=== PATIENT | male | born 1970 | race Caucasian/White ===

== ENCOUNTER 2017-06-03 08:01 | Inpatient (IN) | payer SELFPAY ==
[~2017-06-03] VITALS: Ht 182.9 cm; Wt 69.4 kg
[2017-06-03] VITALS (32 sets, daily range): BP systolic 101–127; BP diastolic 61–89
[~2017-06-03 08:01] MED LIST: ETOMIDATE 2 MG/ML VIAL IV ONE; ROCURONIUM BROMIDE 50 MG/5 ML IV ONE; SUCCINYLCHOLINE CHLORIDE 20 MG/ML VIAL IV ONE
[2017-06-03] MEDS ORDERED: NALOXONE PREFILLED SYRINGE 2 MG/2 ML SYRINGE ONE ×2 (08:03→08:05)
[2017-06-03] MEDS ORDERED: PROPOFOL 100 ML ONE (08:07)
--- NOTE | 2017-06-03 08:10 | NUR ---
verbal order by NEENA DEGROOT for 2mg narcan to [facility] 20,
--- NOTE | 2017-06-03 08:10 | NUR ---
Line established to kaylin Traylor, blood drawn from line and sent to lab
--- NOTE | 2017-06-03 08:11 | NUR ---
anil order by for 2nd dose of narcan 2mg ivp to r ej g 20
--- NOTE | 2017-06-03 08:11 | NUR ---
Dr. Rossi and respiratory therapist for rapid sequence intubation verbal order for etomidate 20mg to r ej g 20 verbal order for
--- NOTE | 2017-06-03 08:13 | NUR ---
Pt intubated by dr lang with 7.5 ET tube, 23cm lip line positive c02 color change noted with bilateral breath sounds
--- NOTE | 2017-06-03 08:14 | NUR ---
Pt appears aggitated and appears difficult to ventilate using bag verbal order from Dr. Rossi for Roceronium 40mg to r ej g 20
--- NOTE | 2017-06-03 08:15 | NUR ---
Héctor Wood emt at bedside for EKG, Sinus tachycardia noted without ectopy
--- NOTE | 2017-06-03 08:17 | NUR ---
finnegan catheter insertedd using sterile technique, no urine output noted from finnegan catheter. MD goode
--- NOTE | 2017-06-03 08:19 | NUR ---
respiratory therapis at bedside to place pt on ventilator with settings: ac:14 tv:550 fio2:100% peep:5
--- NOTE | 2017-06-03 08:30 | NUR ---
RT NOTE: ASSISTED WITH ORAL INTUBATION. HE USED 7.5 ETT SECURED AT 23CM MID LIP LINE. BILATERAL B/S NOTED. POSITIVE COLOR CHANGE ON CAPNOMETER. PATIENT WAS PLACED ON PB 840 VENT. ALARMS VERIFIED AND AUDIBLE. SUCTIONED AND LAVAGED SMALL AMOUNT OF THIN RAYO SECRETIONS. SPUTUM SAMPLE GIVEN TO NURSE(AROLDO). VENT PLUGGED INTO RED OUTLET. AMBU BAG AT [facility].
[2017-06-03 08:41] LABS: BASOPHILS % (AUTO) 0.1 % (0.0-2.0); EOSINOPHILS % (AUTO) 0.7 % (0.0-6.0); HEMATOCRIT 48 % (39-51); HEMOGLOBIN 15.5 g/dL (13.5-17.5); LYMPHOCYTES # (AUTO) 7.2 /CMM (0.8-4.8); LYMPHOCYTES % (AUTO) 18.3 % (20.0-44.0); MEAN CORPUSCULAR HEMOGLOBIN 28 PG (26.0-33.0); MEAN CORPUSCULAR HGB CONC 32 g/dl (31.0-36.0); MEAN CORPUSCULAR VOLUME 88 fL (80-96); MONOCYTES # (AUTO) 0.9 /CMM (0.1-1.30); MONOCYTES % (AUTO) 2.3 % (2.0-12.0); NEUTROPHILS # (AUTO) 30.8 /CMM (1.8-8.9); NEUTROPHILS % (AUTO) 78.6 % (43.0-81.0); PLATELET COUNT (AUTO) 372 /CMM (150-450); RDW COEFFICIENT OF VARIATION 14.5 (11.5-15.0)
[2017-06-03 08:49] LABS: WHITE BLOOD COUNT (AUTO) 39.2 K/uL (4.3-11.0)
[2017-06-03] MEDS ORDERED: IV NS 0.9% 1,000 ML BAG IV ONE (09:00)
[2017-06-03] MEDS ORDERED: ETOMIDATE 2 MG/ML VIAL IV ONE (09:00)
[2017-06-03] MEDS ORDERED: NALOXONE HCL 0.4 MG/ML AMPUL IV ONE ×2 (09:00)
[2017-06-03] MEDS ORDERED: VANCOMYCIN 1 GM in IV D5W 250 ML IV ONE (09:00)
[2017-06-03] MEDS ORDERED: PIPERACILLIN /TAZOBACTAM 3.375 G in IV D5W 50 ML IV ONE (09:00)
[2017-06-03] MEDS ORDERED: ROCURONIUM BROMIDE 50 MG/5 ML IV ONE (09:00)
--- NOTE | 2017-06-03 09:01 | NUR ---
PATIENT TAKEN TO CT VIA STRETCHER, WITH RT AND RN.
[2017-06-03 09:03] LABS: INR 1.19 (0.87-1.13)
[2017-06-03 09:10] LABS: ALANINE AMINOTRANSFERASE 55 U/L (12-78); ALBUMIN 3.6 g/dL (3.4-5.0); ALCOHOL, BLOOD < 3 mg/dL (0-0); ALKALINE PHOSPHATASE 201 U/L (46-116); ASPARTATE AMINOTRANSFERASE 74 U/L (15-37); BILIRUBIN,TOTAL 0.4 mg/dL (0.2-1.0); CALCIUM, SERUM 10.8 mg/dL (8.5-10.1); CHLORIDE 99 mmol/L (98-107); CREATININE 2.8 mg/dL (0.6-1.3); GLUCOSE 184 mg/dL (74-106); POTASSIUM 3.4 mmol/L (3.5-5.1); SALICYLATE 4.7 mg/dL (2.8-20.0); SODIUM SERUM 141 mmol/L (136-145); UREA NITROGEN, BLOOD 15 mg/dL (7-18)
[2017-06-03 09:11] LABS: ACETAMINOPHEN < 10 ug/ml (10-30); CARBON DIOXIDE 9 mmol/L (21-32)
--- NOTE | 2017-06-03 09:13 | NUR ---
PATIENT RETURNED FROM CT.
--- NOTE | 2017-06-03 09:33 | NUR ---
PANEL ON-CALL,TRENTON, KODAK
[2017-06-03 09:40] LABS: BAND % (MANUAL) 9 % (0.0-5.0); LYMPHOCYTES % (MANUAL) 21 % (16-48); MONOCYTES % (MANUAL) 12 % (0-11.0); NEUTROPHILS % (MANUAL) 58 (42-76)
--- NOTE | 2017-06-03 09:45 | NUR ---
SECOND IV STARTED ON LEFT EJ, 18G.
--- NOTE | 2017-06-03 09:49 | NUR ---
REPORT GIVEN TO BERNARDO LUA FOR NÉSTOR UPON ADMISSION.
--- NOTE | 2017-06-03 09:58 | NUR ---
CALLED [facility] FOR ADMISSION
[2017-06-03] MEDS ORDERED: FENTANYL PF 100MCG/2ML AMPUL ONE (10:32)
[2017-06-03] MEDS ORDERED: LORAZEPAM INJ 2 MG/ML VIAL ONE (10:32)
--- NOTE | 2017-06-03 10:45 | NUR ---
PATIENT GIVEN ATIVAN AND FENTANYL D/T CHEWING ON ET TUBE. ATTEMPTED TO PULL TUBE WELL. MEDICATION GIVEN, PATIENT SEDATED AT THIS TIME.
--- NOTE | 2017-06-03 10:50 | NUR ---
DONNELL MCBRIDE AT BEDSIDE PERFORMED LUMBAR PUNCTURE.
[2017-06-03 10:54] LABS: SERUM AMMONIA 31 umol/L (11-32)
[2017-06-03] MEDS ORDERED: LORAZEPAM INJ 2 MG/ML VIAL IV ONE (11:00)
[2017-06-03] MEDS ORDERED: FENTANYL PF 100MCG/2ML AMPUL IV PRN (11:00)
[2017-06-03 11:02] LABS: ALCOHOL, BLOOD < 3 mg/dL (0-0)
--- NOTE | 2017-06-03 11:05 | NUR ---
CENTRAL LINE INSERTED BY DONNELL MCBRIDE ON RIGHT IJ, TOLERATED WELL.
--- NOTE | 2017-06-03 11:25 | NUR ---
PATIENT TRANSPORTED TO ICU, 254 VIA ACLS PROTOCOL. RN, BERNARDO TO PROVIDE NÉSTOR.
[2017-06-03] MEDS ORDERED: ONDANSETRON HCL/PF 4 MG/2 ML VIAL IVP PRN (12:00)
[2017-06-03] MEDS ORDERED: PROPOFOL 100 ML IV PRN (12:00)
[2017-06-03] MEDS ORDERED: ENOXAPARIN SODIUM 40 MG/0.4 ML DISP.SYRIN SQ SCH (12:00)
[2017-06-03 12:02] LABS: ABG BASE EXCESS -7.4 mmol/L; ABG OXYGEN SATURATION 97.2 % (92.0-98.5); ABG PCO2 28.4 mmHg (35.0-45.0); ABG PH 7.375 (7.350-7.450); ABG PO2 100.3 mmHg (75.0-100.0); AaDO2 584.3 mmHg; COHb 0.5 % (0.5-1.5); MetHb 0.4 % (0.0-1.5); O2Hb 96.3 % (94.0-97.0); PEEP,BG 5 cm H2O; SITE, ABG Right Radial; VT, ABG 550 mL
[2017-06-03] MEDS ORDERED: FEE PK DOSING 1 MIN EA MC ONE (12:35)
[2017-06-03 12:38] LABS: APPEARANCE,URINE Cloudy (CLEAR); BILIRUBIN,URINE Negative (NEGATIVE); BLOOD, URINE Large Ery/uL (NEGATIVE); COLOR,URINE Yellow (YELLOW); KETONES,URINE Negative (NEGATIVE); LEUKOCYTE ESTERASE ,URINE Trace (NEGATIVE); NITRITE, URINE Negative (NEGATIVE); PROTEIN,URINE 100 mg/dl (NEGATIVE); UGLUCOSE Negative (NEGATIVE); UROBILINOGEN,URINE 0.2 EU/dL (0.2)
[2017-06-03] MEDS: MEROPENEM 1 G in IV NS 0.9% 100 ML IV SCH ×2 (12:46→21:31)
[2017-06-03 12:59] LABS: BACTERIA,URINE Few /HPF (None Seen); SQUAMOUS EPITHELIAL CELL,UR Rare /HPF (None Seen)
[2017-06-03] MEDS: IV NS 0.9% 1,000 ML IV PRN ×2 (13:03→20:03)
[2017-06-03 13:42] LABS: EOSINOPHILS % (AUTO) 0.2 % (0.0-6.0); HEMATOCRIT 41 % (39-51); HEMOGLOBIN 13.9 g/dL (13.5-17.5); LYMPHOCYTES # (AUTO) 0.8 /CMM (0.8-4.8); LYMPHOCYTES % (AUTO) 2.6 % (20.0-44.0); MEAN CORPUSCULAR HEMOGLOBIN 28 PG (26.0-33.0); MEAN CORPUSCULAR HGB CONC 34 g/dl (31.0-36.0); MEAN CORPUSCULAR VOLUME 82 fL (80-96); MONOCYTES # (AUTO) 0.5 /CMM (0.1-1.30); MONOCYTES % (AUTO) 1.6 % (2.0-12.0); NEUTROPHILS % (AUTO) 95.6 % (43.0-81.0); PLATELET COUNT (AUTO) 218 /CMM (150-450); RDW COEFFICIENT OF VARIATION 14.2 (11.5-15.0); RED BLOOD CELL COUNT(AUTO) 4.96 MIL/uL (4.5-6.0); WHITE BLOOD COUNT (AUTO) 29.3 K/uL (4.3-11.0)
[2017-06-03 14:05] LABS: ALBUMIN 2.5 g/dL (3.4-5.0); BILIRUBIN,TOTAL 0.9 mg/dL (0.2-1.0); CALCIUM, SERUM 7.7 mg/dL (8.5-10.1); CREATININE 2.8 mg/dL (0.6-1.3); MAGNESIUM 3.1 mg/dL (1.8-2.4); POTASSIUM 2.9 mmol/L (3.5-5.1); TOTAL PROTEIN, SERUM 6.3 g/dL (6.4-8.2)
[2017-06-03] MEDS: IV NS 0.9% 500 ML IV PRN ×8 (15:00→23:34)
[2017-06-03] MEDS: ALBUTEROL FS 2.5 MG/0.5 ML VIAL.NEB NEB SCH ×2 (15:30→19:41)
[2017-06-03] MEDS: IPRATROPIUM NEB FS 0.5 MG/2.5 ML AMPUL.NEB NEB SCH ×2 (15:30→19:41)
[2017-06-03 15:35] LABS: CSF GLUCOSE 103 mg/dL (40-70); CSF PROTEIN 60.9 mg/dL (15-45)
[2017-06-03] MEDS: PROPOFOL 100 ML IV PRN ×5 (15:44→23:30)
[2017-06-03] MEDS: ACETAMINOPHEN 650 MG/SUPP.RECT RC PRN (15:49)
[2017-06-03] MEDS ORDERED: NEUTRA PHOS 1 POWD.PACKET NG ONE (16:00)
[2017-06-03] MEDS ORDERED: POTASSIUM CHLORIDE 20 MEQ POWDER PACKET NG ONE (16:00)
--- NOTE | 2017-06-03 16:45 | NUR ---
FOREST FIRE OFFICER NOTE 1130: Admitted no ID patient from ER. Intubated 7.5/23cm lipline, with vent settings AC 14 550 100% +5. No respiratory distress noted at this time. Placed in bed in comfortable position, skin assessment done, taken pictures and attached to chart, noted with bilateral knuckles wounds, knees abrasions, right inner thigh wound with abscess. RIJ TLC and LEJ [address] 110's on the monitor. Velasquez cath intact, noted with low UOP. 1200: Patient does not follow commands but noted with agitation and risk for injuries such as removing ETT and other lines, able to obtain order for PHOTOLITHOGRAPHER restraints and Diprivan drip. Dr. Meyer has order to place on CVP monitor, with reading of 12 now, and with order to give 500 mL NS bolus to keep CVP 12 or greater. 1400: S/E by dr. Chawla, no new order at this time. Trop 4.197, made Dr. Meyer aware, with order to start Heparin drip ACS once CSF resulted. 1430: Made Dr. Chawla aware for tachypneic 40's and biting the ETT, with order to may increase Diprivan to 100mcg. 1545: Temp 101.2, awaiting cultures result. Given Tylenol supp and rendered cooling measures. 1615: Updated Dr. Meyer re: the patient, CSF prelim, WBC 3. Still low urine output. Given 2 of 500mL NS bolus but CVP still 8-10, will given another 500mL bolus now. K 2.9, 40 mEq /OGT and K phos 2 packets given. Still with low UOP. said may start on Heparin, called pharmacy, awaiting to verify. 1630: Spoke with [facility], and she clarified with Dr. Meyer re: the Heparin drip order.
[2017-06-03 16:59] LABS: CREATINE KINASE MB 16.5 ng/mL (0-3.6)
[2017-06-03] MEDS ORDERED: HEPARIN INFUSION/D5W 500 ML IV PRN (17:00)
--- NOTE | 2017-06-03 19:46 | NUR ---
PATIENT RECEIVED ON [facility] VENT WITH SETTINGS SET BY TOLERATED WELL. MECHANICAL VENTILATOR PLUGGED INTO RED OUTLET. VENT ALARMS CHECKED AND ARE AUDIBLE. CUFF PRESSURE CHECKED SECONDARY ART TEACHER. SUCTIONED FOR MODERATE AMOUNT OF SECRETIONS. B/S AUDIBLE BILATERALLY. AMBU BAG AT HOB. Addendum: 06/03/17 at 1946 by JAMIA DENTON RT Amended: Links added.
[2017-06-03] MEDS ORDERED: LEVOFLOXACIN 500 MG /D5W 100ML 500 MG in PREMIX 1 EA IV SCH (20:00)
[2017-06-04] VITALS (41 sets, daily range): BP systolic 95–123; BP diastolic 43–82
[2017-06-04] MEDS: IPRATROPIUM NEB FS 0.5 MG/2.5 ML AMPUL.NEB NEB SCH ×7 (00:03→23:55)
[2017-06-04] MEDS: ALBUTEROL FS 2.5 MG/0.5 ML VIAL.NEB NEB SCH ×7 (00:03→23:55)
--- NOTE | 2017-06-04 01:00 | NUR ---
INSTRUCTIONAL MATERIALS DIRECTOR CVP 12 GOAL REACHED; 3L NS BOLUS GIVEN.
[2017-06-04] MEDS: PROPOFOL 100 ML IV PRN ×9 (01:04→19:11)
[2017-06-04] MEDS: IV NS 0.9% 500 ML IV PRN ×3 (01:05→15:45)
[2017-06-04 01:29] LABS: HEMOGLOBIN 13.5 g/dL (13.5-17.5)
--- NOTE | 2017-06-04 01:30 | NUR ---
REHABILITATION COUNSELLOR NOTIFIED PT BLEEDING FROM MOUTH AND VIA BATES CATHETER; PER MD CONTINUE HEPARIN D/T HIGH TROPONIN. H&H DRAWN AND NO SIGNIFICANT CHANGE NOTED. CONTINUE TO MONITOR.
[2017-06-04] MEDS: IV NS 0.9% 1,000 ML IV PRN ×3 (03:36→23:42)
[2017-06-04 04:47] LABS: HEMATOCRIT 38 % (39-51); HEMOGLOBIN 13.5 g/dL (13.5-17.5); LYMPHOCYTES # (AUTO) 0.7 /CMM (0.8-4.8); LYMPHOCYTES % (AUTO) 2.8 % (20.0-44.0); MEAN CORPUSCULAR HEMOGLOBIN 30 PG (26.0-33.0); MEAN CORPUSCULAR HGB CONC 35 g/dl (31.0-36.0); MEAN CORPUSCULAR VOLUME 84 fL (80-96); MONOCYTES # (AUTO) 0.4 /CMM (0.1-1.30); MONOCYTES % (AUTO) 1.5 % (2.0-12.0); NEUTROPHILS # (AUTO) 24.8 /CMM (1.8-8.9); NEUTROPHILS % (AUTO) 95.7 % (43.0-81.0); PLATELET COUNT (AUTO) 89 /CMM (150-450); RDW COEFFICIENT OF VARIATION 14.6 (11.5-15.0); RED BLOOD CELL COUNT(AUTO) 4.55 MIL/uL (4.5-6.0)
[2017-06-04 05:46] LABS: NEUTROPHILS % (MANUAL) 75 (42-76)
[2017-06-04 05:47] LABS: BAND % (MANUAL) 20 % (0.0-5.0); LYMPHOCYTES % (MANUAL) 1 % (16-48); METAMYELOCYTES % 3 % (0-0); MONOCYTES % (MANUAL) 1 % (0-11.0)
[2017-06-04 05:49] LABS: ALBUMIN 1.9 g/dL (3.4-5.0); BILIRUBIN,TOTAL 2.3 mg/dL (0.2-1.0); CALCIUM, SERUM 6.5 mg/dL (8.5-10.1); CREATININE 4.4 mg/dL (0.6-1.3); MAGNESIUM 3.5 mg/dL (1.8-2.4); PHOSPHORUS 7.6 mg/dL (2.5-4.9); POTASSIUM 4.6 mmol/L (3.5-5.1); TOTAL PROTEIN, SERUM 5.2 g/dL (6.4-8.2)
--- NOTE | 2017-06-04 08:35 | NUR ---
WOUND CARE CONSULT: PT PRESENTS INTUBATED WITH MULTIPLE DRY ABRASIONS TO KNUCKLES AND KNEES, PRESENT ON ADMISSION AND RT INNER THIGH WOUND, S/P I&D. RECOMMEND SURGICAL FOLLOWUP. PT ON MARGY ISOFLEX LOW AIRLOSS BED. ALL SKIN PROTECTION MEASURES IN PLACE AND DISCUSSED WITH NURSING STAFF. WILL SEE PRN. DEGROOT IN AGREEMENT WITH PLAN OF CARE. CURRENT NIKITA SCORE IS 10. Addendum: 06/04/17 at 0840 by VIJAY KIMBROUGH WNDNU Amended: Links added.
[2017-06-04] MEDS: PANTOPRAZOLE 40 MG VIAL IV SCH (08:48)
[2017-06-04] MEDS: MEROPENEM 1 G in IV NS 0.9% 100 ML IV SCH ×2 (08:48→21:06)
[2017-06-04] MEDS: ACETAMINOPHEN 650 MG/SUPP.RECT RC PRN (08:49)
--- NOTE | 2017-06-04 10:05 | NUR ---
Social service consult requested by Dr. Meyer to get identity on pt. since pt. came to [facility] as a "[facility]pa [facility]ane". CAROLE met with pt. bedside along with RN Keven. Per. Camilo pt. was brought to [facility] in the ED and was intubated since he went into respiratory distress. Pt. is currently intubated and unable to provide any information. CAROLE contacted Missing persons and spoke to Detective Davila. CAROLE described pt's features and gave him demographic information. Detective Davila informed CAROLE he will cross-reference and try to see if he can find any information and will contact CAROLE.
[2017-06-04] MEDS: VANCOMYCIN 1.25 GM in IV D5W 500 ML IV SCH (11:04)
[2017-06-04] MEDS: LORAZEPAM INJ 2 MG/ML VIAL IV PRN ×2 (13:26→18:13)
--- NOTE | 2017-06-04 15:38 | NUR ---
CAROLE contacted Detective Davila again to follow up regarding any new information on the pt. or if pt. has been notified as missing. Detective Davila informed SW he has not had a chance to investigate or refer the case to other detectives since he is the only one available at the office at this time. CAROLE gave him trimming caser Belkis contact number if he happens to call on the weekend. [facility] , there was no answer and CAROLE was unable to leave a voicemail message.
--- NOTE | 2017-06-04 15:50 | NUR ---
IT TRAINER NOTE 0720: Received patient in am, with ETT to vent, tolerated settings. Noted with RR 30-34. With OGT to LIS, noted with greenish gastric residuals noted. With RIJ TLC intact. On Diprivan @ 100mcg, Heparin @ 1000 u/h, NS @ 150. ST 100's on the monitor. Per previous shift, noted with hematuria already and oral bleeding and may continue Heparin per MD. Will continue to monitor. Still noted with low UOP. 0930: Rendered sedation vacation, patient does not wake up and does not follow commands, but noted with increased work of breathing and tachypneic high 30's. Dr. Chawla with order of Ativan 2mg q2 PRN. 1000: Still with hematuria after flushing, made Dr. Meyer aware. Held Heparin, made aware. MD ordered to do CT lumbar to R/O hematoma. 1210: Done with CT lumbar, back to room, no significant changes noted. VSS. 1230: CT lumbar resulted, no hematoma and trop trended down to 4, made aware, with order to continue holding Heparin drip. 1530: S/E by Jadyn NEW, with new orders of skin treatments. 1550: No any significant changes, remained on 100mcg of Diprivan for RR 30's. Kept clean, warm and dry. Needs attended.
[2017-06-04] MEDS: NEOMY SULF/BACITRAC ZN/POLY 15 GM TUBE TP SCH (16:00)
--- NOTE | 2017-06-04 19:00 | NUR ---
RN INITIAL NOTES RECEIVED PT SEDATED ON BED WITH DIPRIVAN @ 100MCG/KG/MIN. INTUBATED AND ON VENT WITH SETTINGS AC 14, TV 550, FIO2 40%, PEEP 5, ETT 7.5/23@LIP, TACHYPNEIC BUT SATURATING WELL AND NO S/S OF RESP DISTRESS. CURRENTLY SR/ST ON THE MONITOR, HR 90-100'S. ON CVP MONITORING. OGT CONNECTED TO LOW INTERMITTENT SUCTIONING, GREEN OUTPUT NOTED. BATES CATH IN PLACE, HEMATURIA NOTED. LEFT EJ 18G AND RIGHT IJ TCL WITH NS @ 150MLS/HR, FLUSHED AND PATENT, NO S/S OF INFILTRATION/INFECTION, DRESSING CDI. BED LOW AND LOCKED, SIDERAILS UP, BED ALARM ON, BILATERAL SOFT WRIST RESTRAINTS IN PLACE FOR SAFETY. WILL MONITOR
[2017-06-04] MEDS: LEVOFLOXACIN 250 MG /D5W 50 ML 250 MG in PREMIX 1 EA IV SCH (19:21)
--- NOTE | 2017-06-04 21:30 | NUR ---
RN NOTES WILL START FENTANYL DRIP AND VERSED DRIP PER MD ORDER DUE TO PATIENT'S ELEVATED TRIGLYCERIDE OF 1046. WILL TITRATE DOWN PROPOFOL THEN D/C ACCORDINGLY.
[2017-06-04] MEDS: MIDAZOLAM HCL 100 MG in IV NS 0.9% 80 ML IV PRN (21:35)
[2017-06-04] MEDS: FENTANYL CITRATE IV 1,250 MCG in IV NS 0.9% 225 ML IV PRN (21:37)
[2017-06-05] VITALS (66 sets, daily range): BP systolic 101–128; BP diastolic 56–75
[2017-06-05] MEDS: ALBUTEROL FS 2.5 MG/0.5 ML VIAL.NEB NEB SCH ×6 (03:21→23:28)
[2017-06-05] MEDS: IPRATROPIUM NEB FS 0.5 MG/2.5 ML AMPUL.NEB NEB SCH ×6 (03:21→23:28)
[2017-06-05] MEDS: NEOMY SULF/BACITRAC ZN/POLY 15 GM TUBE TP SCH ×2 (03:31→16:08)
[2017-06-05] MEDS: IV NS 0.9% 1,000 ML IV PRN ×3 (04:45→18:05)
[2017-06-05] MEDS: IV NS 0.9% 500 ML IV PRN ×4 (04:45→22:31)
[2017-06-05 04:55] LABS: BASOPHILS % (AUTO) 0.1 % (0.0-2.0); LYMPHOCYTES # (AUTO) 0.9 /CMM (0.8-4.8); MEAN CORPUSCULAR HEMOGLOBIN 30 PG (26.0-33.0); MEAN CORPUSCULAR HGB CONC 36 g/dl (31.0-36.0); MEAN CORPUSCULAR VOLUME 83 fL (80-96); MONOCYTES # (AUTO) 0.5 /CMM (0.1-1.30); MONOCYTES % (AUTO) 2.3 % (2.0-12.0); NEUTROPHILS % (AUTO) 93.6 % (43.0-81.0); PLATELET COUNT (AUTO) 79 /CMM (150-450); RDW COEFFICIENT OF VARIATION 14.6 (11.5-15.0); RED BLOOD CELL COUNT(AUTO) 4.27 MIL/uL (4.5-6.0); WHITE BLOOD COUNT (AUTO) 23.5 K/uL (4.3-11.0)
[2017-06-05 05:20] LABS: HEMATOCRIT 34 % (39-51)
[2017-06-05 05:21] LABS: HEMOGLOBIN 11.6 g/dL (13.5-17.5)
[2017-06-05 05:42] LABS: ALBUMIN 1.6 g/dL (3.4-5.0); BILIRUBIN,TOTAL 1.6 mg/dL (0.2-1.0); CALCIUM, SERUM 6.3 mg/dL (8.5-10.1); CREATININE 7.4 mg/dL (0.6-1.3); MAGNESIUM 3.1 mg/dL (1.8-2.4); POTASSIUM 5.7 mmol/L (3.5-5.1); TOTAL PROTEIN, SERUM 5.3 g/dL (6.4-8.2)
[2017-06-05 05:58] LABS: PHOSPHORUS 9.2 mg/dL (2.5-4.9)
--- NOTE | 2017-06-05 06:15 | NUR ---
RN CLOSING NOTES PT REMAINS STABLE OF THE MOMENT. ALL DUE MEDS GIVEN, AM CARE PROVIDED. WILL ENDORSE NÉSTOR TO AM RN
--- NOTE | 2017-06-05 07:15 | NUR ---
LINE O SCRIBE OPERATOR NOTES RECEIVED PATIENT SEDATED , NOT IN ACUTE DISTRESS , RESPIRATIONS ARE DEEP AND UNLABORED ,SPO2 OF 100% VIA MECHANICAL VENT SETTINGS ORDERED ETT IN PLACE , ST 105 ON BEDSIDE MONITOR , FC DRAINING VIA GRAVITY , NGT TO LOW ICS DRAINING WITH GREENISH OUTPUT , IV OF L EJ # 18 PATENT AND INTACT WITH NS @ TKO , R IJ TLC WITH NS @ 150ML/HR , VERSED @6MG/HR , FENTANYL @ 50MCG/HR INFUSING WELL , ALL NEEDS ATTENDED , BED ON LOW AND LOCKED POSITION ,SIDE RAILS X2. HOB @ 35
[2017-06-05] MEDS: PANTOPRAZOLE 40 MG VIAL IV SCH (08:01)
[2017-06-05] MEDS: MEROPENEM 1 G in IV NS 0.9% 100 ML IV SCH ×2 (08:02→21:31)
--- NOTE | 2017-06-05 08:07 | NUR ---
BALLOON DIPPER NOTES CHECKED CVP , PLACED PT ON SUPINE POSITION , PLACING CVP MONITOR AT MIDAXILLARY LINE , ZEROED WITH GOOD WAVE FORM , CVP READING 6MMHG , ADMINISTERED 500ML NS BOLUS ORDERED PRN ,WILL CONTINUE TO MONITOR.
--- NOTE | 2017-06-05 08:50 | NUR ---
LINUX ENGINEER NOTES NOTIFIED DR DONNELL MCBRIDE REGARDING ABG RESULT AND LABS , DISCUSSED VENT SETTINGS , PT HAVING LOW URINE OUTPUT , PER MD GIVE ONE AMP OF BICARB , ABG AFTER ONE HOUR , CHANGE RATE TO 30 TV 600 , HE WILL INSERT HD CATHETER ,ORDERS CARRIED OUT , WILL CONTINUE TO MONITOR
[2017-06-05 08:52] LABS: ABG BASE EXCESS -16.2 mmol/L; ABG OXYGEN SATURATION 96.3 % (92.0-98.5); ABG PCO2 28.6 mmHg (35.0-45.0); ABG PH 7.187 (7.350-7.450); ABG PO2 94.1 mmHg (75.0-100.0); AaDO2 158.2 mmHg; COHb 0.9 % (0.5-1.5); MetHb 0.3 % (0.0-1.5); O2Hb 95.1 % (94.0-97.0); PEEP,BG 5 cm H2O; SITE, ABG Left Brachial; VT, ABG 550 mL
--- NOTE | 2017-06-05 09:06 | NUR ---
@ 8;50 AM WAIT ON ORDER OF ABDOMEN ULTRASOUND SINCE STONEY DESHPANDE SAID;" DR MAY WANT TO CANCEL EXAM BECAUSE PATIENT HAD CT ABD/PEL".
[2017-06-05 09:13] LABS: *BACT BETA STREP (GROUP B) AG Negative (Negative); *BACT NEISSERIA MENING. AG Negative (Negative); *BACT STREP PNEUMONIAE AG Negative (Negative); *CRYPTOCOCCUS AG, CSF Negative (Negative)
[2017-06-05] MEDS ORDERED: SODIUM BICARBONATE SYR 50 MEQ/50 ML DISP.SYRIN IV ONE (09:30)
[2017-06-05] MEDS: VANCOMYCIN 1.25 GM in IV D5W 500 ML IV SCH (10:09)
--- NOTE | 2017-06-05 10:40 | NUR ---
PROGRAM ADVISOR NOTES SEEN AND EVALUATED BY DR STOCKTON , DISCUSSED LABS , CHEST XRAY , INITIAL ABG THIS AM AND REPEAT ABG RESULT , 1 AMP OF BICARBD GIVEN DUE TO PH OF 7.187 RATE CHANGED TO 30 TV 600 , NO REPRESSORS , AFEBRILE , STAT HD TODAY DUE TO BUN 57 , CREATININE 7.4 , WITH LOW URINE OUTPUT , CVP OF 8-9 , MD AWARE
--- NOTE | 2017-06-05 10:49 | NUR ---
AIR AND HYDRONIC BALANCING TECHNICIAN NOTES DR DONNELL MCBRIDE PLACED RIGHT FEMORAL HD CATH , CATHETER C/D/I , OK TO USE FOR HD PER MD DISCUSSED WITH DR JACOBO IF BP DROPS DURING HD DOES HE WANTS TO START PRN MEDS , PER MD ALBUMIN PRN AND LEVOPHED TO KEEP MAP ABOVE 60 . ORDERS CARRIED OUT
[2017-06-05 10:52] LABS: ABG BASE EXCESS -14.8 mmol/L; ABG OXYGEN SATURATION 96.7 % (92.0-98.5); ABG PCO2 25.8 mmHg (35.0-45.0); ABG PH 7.243 (7.350-7.450); ABG PO2 93.2 mmHg (75.0-100.0); AaDO2 162.3 mmHg; COHb 1.1 % (0.5-1.5); MetHb 0.3 % (0.0-1.5); O2Hb 95.3 % (94.0-97.0); PEEP,BG 5 cm H2O; SITE, ABG Left Radial; VT, ABG 600 mL
--- NOTE | 2017-06-05 12:30 | NUR ---
JINGLE WRITER NOTES PATIENT STABLE AT THIS TIME , AFEBRILE , V/S STABLE , HD STARTED ORDERED . WILL CONTINUE TO MONITOR
[2017-06-05] MEDS: MIDAZOLAM HCL 100 MG in IV NS 0.9% 80 ML IV PRN (12:31)
--- NOTE | 2017-06-05 12:44 | NUR ---
DESIGN ENGINEERING TECHNICIAN NOTES SEEN AND EVALUATED BY DR ESTRELLA , DISCUSSED LABS , CHEST XRAY ABG'S , CURRENT V/S , AFEBRILE , LOW URINE OUTPUT , SEDATED WITH FENTANYL AND VERSED , NOTIFIED CC AND HISTORY , CVP OF 12 500ML NS BOUKS X2 GIVEN , MD AWARE
--- NOTE | 2017-06-05 14:30 | NUR ---
SENIOR POWER SCHEDULER NOTES PT STABLE S/P HD , BP OF 112/68 HR 96 SPO2 OF 100% VIA MECHANICAL VENT , RR 30 , REMOVED 500C , WILL CONTINUE TO MONITOR
[2017-06-05 17:55] LABS: ABG BASE EXCESS -9.5 mmol/L; ABG OXYGEN SATURATION 96.2 % (92.0-98.5); ABG PCO2 22.9 mmHg (35.0-45.0); ABG PH 7.391 (7.350-7.450); ABG PO2 88.5 mmHg (75.0-100.0); AaDO2 170.4 mmHg; COHb 0.7 % (0.5-1.5); MetHb 0.1 % (0.0-1.5); O2Hb 95.4 % (94.0-97.0); SITE, ABG Left Brachial; VT, ABG 600 mL
--- NOTE | 2017-06-05 18:14 | NUR ---
LOGISTIC SPECIALIST NOTES NOTIFIED DR STOCKTON REGARDING REPEAT ABG POST HD , DISCUSSED CURRENT VENT SETTINGS , MD AWARE , NO NEW ORDERS RECEIVED
--- NOTE | 2017-06-05 18:31 | NUR ---
RT END OF THE SHIFT REPORT, PT. 48 Y OLD MALE REMAIN ORALLY INTUBATED ETT # 7.5 @ 23 CM LIP LINE AND SECURED. ON THE VENT WITH NOTED SETTINGS. PT. REMAIN STABLE. TX'S GIVEN INLINE NO ADVERSE REACTION NOTED. VENT ALARMS ARE SET AND AUDIBLE WITH AMBU BAG AT THE BEDSIDE. MANUFACTURING PROCESS TECHNICIAN CUFF PRESSURE NOTED. VENT IS PLUGGED INTO RED OUTLET. HME CHANGED. B/S BILATERALLY RHONCHI EQUAL CHEST RISE NOTED. SX MODERATE THICK YELLOW SECRETIONS. NO RESPIRATORY DISTRESS NOTED T/O SHIFT, WILL CONTINUE TO MONITOR. REPORT WILL PASS TO PM SHIFT. Addendum: 06/05/17 at 1832 by BEBETO SEGUNDO RT Amended: Links added.
--- NOTE | 2017-06-05 19:30 | NUR ---
INTERIOR DESIGN PROFESSIONAL INITIAL NOTES RECEIVED PATIENT SEDATED. NO S/S OF PAIN OR DISCOMFORT. NO RESPIRATORY DISTRESS NOTED. WITH ETT 7.5CM, 23CM AT THE LIP. WITH VENT SETTINGS AC 30, TV 600, FIO2 40%, PEEP 5. WITH OGT PATENT AND INTACT, IN PLACE, ON LOW INTERMITTENT SUCTION, WITH DARK GREEN OUTPUT. ON TELE MONITOR SINUS TACH 106. WITH F/C PATENT AND INTACT, DRAINING BY GRAVITY. WITH RIJ TLC, CVP MONITORING, FENTANYL 50MCG/ HR, AND VERSED AT 6MG/HR, NS AT 150ML/HR. BILATERAL WRIST RESTRAINTS IN PLACE. CIRCULATION CHECKED. HOB ELEVATED. SIDE RAILS UP AND LOCKED. BED KEPT AT LOWEST POSITION. CALL LIGHT KEPT WITHIN EASY REACH. WILL CONTINUE TO MONITOR.
--- NOTE | 2017-06-05 20:15 | NUR ---
AUDIT MANAGER NOTE NOTED PATIENT WITH AXILLARY TEMP 99.8, COOLING MEASURES RENDERED. WILL CONTINUE TO MONITOR.
[2017-06-05] MEDS: LEVOFLOXACIN 250 MG /D5W 50 ML 250 MG in PREMIX 1 EA IV SCH (20:16)
--- NOTE | 2017-06-05 22:32 | NUR ---
DETACHER NOTE CVP READING <12, 500ML NS BOLUS GIVEN. WILL CONTINUE TO MONITOR.
[2017-06-05] MEDS: FENTANYL CITRATE IV 1,250 MCG in IV NS 0.9% 225 ML IV PRN (23:31)
[2017-06-06] VITALS (41 sets, daily range): BP systolic 96–137; BP diastolic 58–81
[2017-06-06] MEDS: ACETAMINOPHEN 650 MG/SUPP.RECT RC PRN ×2 (00:26→19:23)
--- NOTE | 2017-06-06 00:29 | NUR ---
SENIOR INSIGHT MANAGER INTERNATIONAL NOTE PATIENT NOTED WITH AXILLARY TEMPERATURE 100.9, PRN TYLENOL GIVEN, COOLING MEASURES CONTINUED. WILL CONTINUE TO MONITOR.
--- NOTE | 2017-06-06 00:30 | NUR ---
SINGLE STAYER OPERATOR NOTE CLARIFIED ORDER WITH DR. MCBRIDE REGARDING PRN 500ML BOLUS TO GIVE TO KEEP CVP GREATER THAN 12. WITH NEW ORDER TO CHANGE PARAMETER TO TO KEEP CVP GREATER THAN 8. NOTED AND CARRIED OUT. WILL CONTINUE TO MONITOR.
[2017-06-06] MEDS: IPRATROPIUM NEB FS 0.5 MG/2.5 ML AMPUL.NEB NEB SCH ×6 (01:49→23:29)
[2017-06-06] MEDS: ALBUTEROL FS 2.5 MG/0.5 ML VIAL.NEB NEB SCH ×6 (01:49→23:28)
[2017-06-06] MEDS: IV NS 0.9% 1,000 ML IV PRN (02:32)
[2017-06-06] MEDS: NEOMY SULF/BACITRAC ZN/POLY 15 GM TUBE TP SCH ×2 (04:00→15:57)
[2017-06-06] MEDS: MIDAZOLAM HCL 100 MG in IV NS 0.9% 80 ML IV PRN ×2 (04:56→17:49)
[2017-06-06 06:09] LABS: CALCIUM, SERUM 6.2 mg/dL (8.5-10.1); CREATININE 7.4 mg/dL (0.6-1.3); POTASSIUM 4.6 mmol/L (3.5-5.1)
--- NOTE | 2017-06-06 06:40 | NUR ---
NURSE CASE MANAGER NOTE HD NURSE AT BEDSIDE
--- NOTE | 2017-06-06 07:01 | NUR ---
SLURRY MAN NOTE PER HD NURSE, HD CATHETER NOT WORKING AT THIS TIME.
--- NOTE | 2017-06-06 07:10 | NUR ---
RN INITIAL NOTES RECEIVED PT INTUBATED, ON VENT. NO RESPIRATORY DISTRESS NOTED. NO SOB NOTED. NO SIGNS OF PAIN NOTED. RIGHT IJ IN PLACE. ON VERSED AR 6MG/HR AND FENTANYK AT 50MCG/HR. WILL TITRATE ACCORDINGLY. RIGHT FEMORAL HD CATH, CLOTTED. DONNELL MCBRIDE, DORI AWARE. FOR POSSIBLE REINSERTION OF HD CATH. OG IN PLACE, CONNECTED TO LOW INTERMITTENT SUCTION. FC IN PLACE. BLE ELEVATED. PT COMFORTABLE. WILL MONITOR.
--- NOTE | 2017-06-06 07:35 | NUR ---
COLLARETTE SEPARATOR CLOSING NOTES NO SIGNIFICANT CHANGES OVERNIGHT. NO RESPIRATORY DSITRESS NOTED, TOLERATING CURRENT VENT SETTINGS. OGT PATENT AND INTACT, ON LOW INTERMITTENT SUCTION. F/C PATENT AND INTACT, DRAINING BY GRAVITY. WITH RIJ PATENT AND INTACT WITH VERSED, FENTANYL, AND NS RUNNING, ON CVP MONITORING. KEPT CLEAN AND DRY. WOUND TX PROVIDED. HOB ELEVATED. SIDE RAILS UP AND LOCKED. BED KEPT AT LOWEST POSITION. HD CATH NOT WORKING. CONTINUITY OF CARE ENDORSED TO AM NURSE.
[2017-06-06 08:19] LABS: ABG BASE EXCESS -9.6 mmol/L; ABG OXYGEN SATURATION 96.5 % (92.0-98.5); ABG PCO2 22.7 mmHg (35.0-45.0); ABG PO2 93.9 mmHg (75.0-100.0); AaDO2 165.2 mmHg; COHb 1.2 % (0.5-1.5); MetHb 0.1 % (0.0-1.5); O2Hb 95.2 % (94.0-97.0); PEEP,BG 5 cm H2O; SITE, ABG Left Brachial; VT, ABG 600 mL
[2017-06-06] MEDS: PANTOPRAZOLE 40 MG VIAL IV SCH (08:24)
[2017-06-06] MEDS: MEROPENEM 1 G in IV NS 0.9% 100 ML IV SCH ×2 (08:24→20:11)
[2017-06-06] MEDS ORDERED: VANCOMYCIN 500 MG in IV D5W 100 ML IV PRN (09:00)
--- NOTE | 2017-06-06 11:00 | NUR ---
RN NOTES SEEN AND EXAMINED BY DONNELL MCBRIDE DNP. PT INTUBATED. NO RESPIRATORY DISTRESS NOTED. NO SOB NOTED. NO SIGNS OF PAIN NOTED. PT REMAINS ON VERSED AND FENTANYL DRIP. PT STILL ON CVP MONITORING. HD CATH ON RIGHT FEMORAL READJUSTED. GOOD VENOUS RETURN NOTED. LINE OK FOR HD. MD ALSO AWARE OF CXR RESULT. WILL CONTINUE TO MONITOR.
--- NOTE | 2017-06-06 11:00 | NUR ---
RN NOTES SEEN AND EXAMINED BY DR. GIBSON. AWARE OF CURRENT CXR AND ABG RESULT. NO CHANGES MADE. WILL CONTINUE TO MONITOR.
[2017-06-06] MEDS: IV NS 0.9% 500 ML IV PRN (11:08)
--- NOTE | 2017-06-06 11:15 | NUR ---
RN NOTES SEEN AND EXAMINED BY DR. DONAL ESTRELLA. AWARE OF CURRENT LAB VALUES. PT HD CATH READJUSTED BY DONNELL MCBRIDE DNP. PT FOR HD TODAY. WILL CONTINUE TO MONITOR.
[2017-06-06] MEDS: HEPARIN SODIUM, PORCINE 5000 UNITS/1 ML VIAL SQ SCH ×2 (12:25→20:11)
--- NOTE | 2017-06-06 14:00 | NUR ---
RN NOTES HD STARTED. PT INTUBATED. NO RESPIRATORY DISTRESS NOTED. NO SOB NOTED. NO SIGNS OF PAIN NOTED. WILL CONTINUE TO MONITOR.
--- NOTE | 2017-06-06 16:45 | NUR ---
RN NOTES HD DONE. REMOVED 1L. TOLERATED WELL. NO RESPIRATORY DISTRESS NOTED. NO SOB NOTED. NO SIGNS OF PAIN NOTED. VS STABLE. WILL MONITOR.
--- NOTE | 2017-06-06 18:19 | NUR ---
RT END OF THE SHIFT REPORT, PT. 48 Y OLD MALE REMAIN ORALLY INTUBATED ETT # 7.5 @ 23 CM LIP LINE AND SECURED. ON THE VENT WITH NOTED SETTINGS. PT. REMAIN STABLE. VENT ALARMS ARE SET AND AUDIBLE WITH AMBU BAG AT THE BEDSIDE. VAULT ATTENDANT CUFF PRESSURE NOTED. VENT IS PLUGGED INTO RED OUTLET. HME CHANGED. B/S BILATERALLY RHONCHI EQUAL CHEST RISE NOTED. SX MODERATE THICK YELLOWISH SECRETIONS. NO RESPIRATORY DISTRESS NOTED T/O SHIFT. WILL CONTINUE TO MONITOR. REPORT WILL BE PASS TO PM SHIFT.
--- NOTE | 2017-06-06 18:57 | NUR ---
RN CLOSING NOTES PT REMAINS INTUBATED, ON VENT. NO RESPIRATORY DISTRESS NOTED. NO SOB NOTED. NO SIGNS OF PAIN NOTED. OG CONNECTED TO LOW INTERMITTENT SUCTION. RIJ IN PLACE. PT ON VERSED AND FENTANYL DRIP. VS STABLE. TX PROVIDED ORDERED. KEPT CLEAN AND DRY. REPOSITIONED Q2. WILL ENDORSE FOR CONTINUITY OF CARE.
--- NOTE | 2017-06-06 19:00 | NUR ---
RN INITIAL NOTES RECEIVED PT SEDATED ON BED WITH VERSED 6MG/HR(6MLS/HR) AND FENTANYL 50MCG/HR(10MLS/HR). INTUBATED AND ON VENT WITH SETTINGS AC 30, TV 600, FIO2 40%, PEEP 5, ETT 7.5/23@LIP, SATURATING WELL AND NO S/S OF RESP DISTRESS. CURRENTLY ST ON THE MONITOR, HR 100'S. ON CVP MONITORING. OGT CONNECTED TO LOW INTERMITTENT SUCTIONING, GREEN OUTPUT NOTED. BATES CATH IN PLACE. RIGHT FEMORAL HD CATH INTACT. RIGHT IJ TLC TKO, FLUSHED AND PATENT, NO S/S OF INFILTRATION/INFECTION, DRESSING CDI. BED LOW AND LOCKED, SIDERAILS UP, BED ALARM ON, BILATERAL SOFT WRIST RESTRAINTS IN PLACE FOR SAFETY. FEVER NOTED WITH 102.5 ORAL TEMP, WILL GIVE TYLENOL AND APPLY COOLING MEASURES. WILL MONITOR
--- NOTE | 2017-06-06 19:19 | NUR ---
PT RECEIVED ORALLY INTUBATED WITH A 7.5 ETT SECURED AT 23 CM AT THE LIP LINE. PT IS ON THE VENT WITH NOTED SETTINGS VENT ALARMS SET AND AUDIBLE. VENT IS PLUGGED INTO RED OUTLET. SHOPPING INSPECTOR CUFF PRESSURE NOTED. BREATHING TX GIVEN MD'S ORDERED. NO ADVERSE REACTION NOTED. SUCTIONED MODERATE AMOUNT OF YELLOW THICK SECRETIONS. NO RESPIRATORY DISTRESS NOTED AT THIS TIME, WILL CONTINUE TO MONITOR THE PT.
[2017-06-06] MEDS: LEVOFLOXACIN 250 MG /D5W 50 ML 250 MG in PREMIX 1 EA IV SCH (20:10)
[2017-06-07] VITALS (50 sets, daily range): BP systolic 101–148; BP diastolic 56–86
[2017-06-07] MEDS: FENTANYL CITRATE IV 1,250 MCG in IV NS 0.9% 225 ML IV PRN (02:36)
[2017-06-07] MEDS: ALBUTEROL FS 2.5 MG/0.5 ML VIAL.NEB NEB SCH ×6 (03:14→23:33)
[2017-06-07] MEDS: IPRATROPIUM NEB FS 0.5 MG/2.5 ML AMPUL.NEB NEB SCH ×6 (03:14→23:33)
[2017-06-07] MEDS: NEOMY SULF/BACITRAC ZN/POLY 15 GM TUBE TP SCH ×2 (03:53→15:41)
[2017-06-07 04:57] LABS: HEMATOCRIT 30 % (39-51); HEMOGLOBIN 10.6 g/dL (13.5-17.5); MEAN CORPUSCULAR HEMOGLOBIN 29 PG (26.0-33.0); MEAN CORPUSCULAR HGB CONC 36 g/dl (31.0-36.0); MEAN CORPUSCULAR VOLUME 82 fL (80-96); PLATELET COUNT (AUTO) 85 /CMM (150-450); RDW COEFFICIENT OF VARIATION 13.4 (11.5-15.0); RED BLOOD CELL COUNT(AUTO) 3.66 MIL/uL (4.5-6.0); WHITE BLOOD COUNT (AUTO) 19.3 K/uL (4.3-11.0)
[2017-06-07 05:01] LABS: CALCIUM, SERUM 7.3 mg/dL (8.5-10.1); CREATININE 7.1 mg/dL (0.6-1.3); POTASSIUM 4.5 mmol/L (3.5-5.1)
--- NOTE | 2017-06-07 06:00 | NUR ---
RN CLOSING NOTES PT REMAINS STABLE OF THE MOMENT. ALL DUE MEDS GIVEN, AM CARE PROVIDED. WILL ENDORSE NÉSTOR TO AM RN
--- NOTE | 2017-06-07 07:10 | NUR ---
RN INITIAL NOTES RECEIVED PT INTUBATED, ON VENT. NO RESPIRATORY DISTRESS NOTED. NO SOB NOTED. NO SIGNS OF PAIN NOTED. PT ON CVP MONITORING. RIGHT IJ IN PLACE. ON VERSED AT 6MG/HR AND FENTANYL AT 50MCG/HR. WILL TITRATE ACCORDINGLY. OG IN PLACE, CONNECTED TO LOW INTERMITTENT SUCTION. GREENISH OUTPUT NOTED. RIGHT FEMORAL HD CATH IN PLACE. DRESSING CLEAN AND DRY. FC IN PLACE. BLE ELEVATED. PT COMFORTABLE. WILL MONITOR.
[2017-06-07 08:09] LABS: ABG BASE EXCESS -4.9 mmol/L; ABG OXYGEN SATURATION 96.4 % (92.0-98.5); ABG PCO2 25.6 mmHg (35.0-45.0); ABG PH 7.451 (7.350-7.450); ABG PO2 90.1 mmHg (75.0-100.0); AaDO2 165.7 mmHg; COHb 1.3 % (0.5-1.5); MetHb 0.2 % (0.0-1.5); SITE, ABG Left Brachial; VT, ABG 600 mL
[2017-06-07 08:14] LABS: PEEP,BG 5 cm H2O
[2017-06-07] MEDS: PANTOPRAZOLE 40 MG VIAL IV SCH (08:19)
[2017-06-07] MEDS: HEPARIN SODIUM, PORCINE 5000 UNITS/1 ML VIAL SQ SCH ×2 (08:33→20:16)
[2017-06-07] MEDS: ACETAMINOPHEN 650 MG/SUPP.RECT RC PRN ×2 (08:46→17:23)
--- NOTE | 2017-06-07 08:46 | NUR ---
[facility] and spoke to Officer 716 requesting if a public safety police can come out to the hospital to fingerprint pt. since his identity is unknown at this time. Officer 716 informed CAROLE to call back and ask for the concrete form setter and finisher. CAROLE contacted [facility] [employer] again and spoke to officer Dar in the concrete form setter and finisher unit. Officekaylin Dodge informed CAROLE that he is not sure if they can fingerprint a person if they are not under arrest, however he will ask his supervisor grower and call SW back.
--- NOTE | 2017-06-07 09:00 | NUR ---
RN NOTES SEEN AND EXAMINED BY DR. KERN. PT INTUBATED, ON VENT. TOLERATING WELL. PT ON VERSED AND FENTANYL DRIP. WILL DO SEDATION VACATION. PT ON CVP MONITORING. PT ON HD. MD AWARE OF CURRENT LAB VALUES, CXR AND ABG RESULT. WILL CONTINUE TO MONITOR.
[2017-06-07 09:16] LABS: *WEST NILE VIRUS IgG, CSF Negative (Negative)
[2017-06-07] MEDS ORDERED: CEFTRIAXONE 2 G in IV D5W 100 ML IV SCH (10:00)
[2017-06-07] MEDS: ACYCLOVIR IV 1 GM in IV D5W 250 ML IV SCH ×2 (10:17→20:16)
[2017-06-07] MEDS: MIDAZOLAM HCL 100 MG in IV NS 0.9% 80 ML IV PRN (10:18)
--- NOTE | 2017-06-07 10:48 | NUR ---
CAROLE received a call back from Officer Dar from [facility] informing SW that they will not be able to come fingerprint the pt. because pt. is not under arrest. Officer Dar referred CAROLE to contact Records and Identification. CAROLE contacted Records and Identification and spoke to Leonardo who also informed SW that they would not be able to fingerprint the pt. CAROLE followed up with Missing Persons again and spoke to Detective Snyder explaining the chain of events. Detective Snyder informed CAROLE he will contact the [place] investigation office and open an investigation with them. Detective Snyder will follow up with CAROLE tomorrow.
[2017-06-07] MEDS ORDERED: ACYCLOVIR IV 1 GM in IV D5W 250 ML IV SCH (11:00)
[2017-06-07 11:04] LABS: BAND % (MANUAL) 6 % (0.0-5.0)
[2017-06-07 11:05] LABS: EOSINOPHILS % (MANUAL) 1 % (0-4); MONOCYTES % (MANUAL) 5 % (0-11.0)
[2017-06-07 11:10] LABS: VDRL, CSF Non Reactive (Non Rea:<1:1)
[2017-06-07 12:10] LABS: *WEST NILE VIRUS IgM, CSF Negative (Negative)
[2017-06-07 13:00] LABS: LYMPHOCYTES % (MANUAL) 4 % (16-48); NEUTROPHILS % (MANUAL) 84 (42-76)
--- NOTE | 2017-06-07 18:37 | NUR ---
RT END OF THE SHIFT REPORT, PT. 48 Y OLD MALE REMAIN ORALLY INTUBATED ETT # 7.5 @ 23 CM LIP LINE AND SECURED. ON THE VENT WITH NOTED SETTINGS. PT. REMAIN STABLE. THX GIVEN INLINE NO ADVERSE REACTION NOTED. VENT ALARMS ARE SET AND AUDIBLE WITH AMBU BAG AT THE BEDSIDE. LINEN CLERK CUFF PRESSURE NOTED. VENT IS PLUGGED INTO RED OUTLET. HME CHANGED. B/S BILATERALLY RHONCHI EQUAL CHEST RISE NOTED. SX MODERATE THICK BROWN SECRETIONS. . NO RESPIRATORY DISTRESS NOTED T/O SHIFT, WILL CONTINUE TO MONITOR. REPORT WILL PASS TO PM SHIFT. Addendum: 06/07/17 at 1838 by BEBETO SEGUNDO RT Amended: Links added.
--- NOTE | 2017-06-07 18:57 | NUR ---
RN CLOSING NOTES PT REMAINS INTUBATED, ON VENT. NO RESPIRATORY DISTRESS NOTED. NO SOB NOTED. NO SIGNS OF PAIN NOTED. OG CONNECTED TO LOW INTERMITTENT SUCTION. OUTPUT MONITORED. RIJ IN PLACE. PT ON VERSED AND FENTANYL DRIP. VS STABLE. TX PROVIDED ORDERED. KEPT CLEAN AND DRY. REPOSITIONED Q2. WILL ENDORSE FOR CONTINUITY OF CARE.
--- NOTE | 2017-06-07 19:00 | NUR ---
N INITIAL NOTES RECEIVED PT SEDATED ON BED WITH VERSED 2MG/HR(2MLS/HR) AND FENTANYL 50MCG/HR(10MLS/HR); WILL INCREASE VERSED PER PROTOCOL DUE TO NOTED WORK OF BREATHING. INTUBATED AND ON VENT WITH SETTINGS AC 30, TV 600, FIO2 40%, PEEP 5, ETT 7.5/23@LIP, SATURATING WELL. CURRENTLY ST ON THE MONITOR, HR 100'S. ON CVP MONITORING. OGT CONNECTED TO LOW INTERMITTENT SUCTIONING, GREEN OUTPUT NOTED. BATES CATH IN PLACE. RIGHT FEMORAL HD CATH INTACT. RIGHT IJ TLC TKO, FLUSHED AND PATENT, NO S/S OF INFILTRATION/INFECTION, DRESSING CDI. BED LOW AND LOCKED, SIDERAILS UP, BED ALARM ON, BILATERAL SOFT WRIST RESTRAINTS IN PLACE FOR SAFETY. CORE TEMP IS 101. 4, MEDICATION HAS BEEN GIVEN, WILL START COOLING BLANKET WELL. WILL MONITOR
--- NOTE | 2017-06-07 19:48 | NUR ---
PT REC'D ORALLY INTUBATED ETT # 7.5 @ 23 CM LIP LINE AND SECURED. SX MODERATE AMOUNT OF THICK YELLOW. PT APPEARS TO BE MAUDE MEC VENT WELL ON NOTED SETTINGS. ALL ALARMS SOUND AND AUDIBLE. VENT PLUGGED INTO RED OUTLET AND LOCKED. BS EQUAL BILAT. AMBU BAG AT BEDSIDE. WILL CONTINUE TO MONITOR. Addendum: 06/07/17 at 1951 by CHRISTINA CARDENAS RT Amended: Links added.
[2017-06-08] VITALS (57 sets, daily range): BP systolic 107–177; BP diastolic 64–98
[2017-06-08] MEDS ORDERED: MEROPENEM 500 MG VIAL IV ONE (00:14)
[2017-06-08] MEDS: MEROPENEM 500 MG in IV NS 0.9% 50 ML IV SCH ×3 (00:15→23:36)
[2017-06-08] MEDS: ACETAMINOPHEN 650 MG/SUPP.RECT RC PRN ×2 (00:23→10:56)
[2017-06-08] MEDS: FENTANYL CITRATE IV 1,250 MCG in IV NS 0.9% 225 ML IV PRN (02:02)
[2017-06-08] MEDS: ALBUTEROL FS 2.5 MG/0.5 ML VIAL.NEB NEB SCH ×6 (03:17→23:11)
[2017-06-08] MEDS: IPRATROPIUM NEB FS 0.5 MG/2.5 ML AMPUL.NEB NEB SCH ×6 (03:17→23:11)
[2017-06-08] MEDS: NEOMY SULF/BACITRAC ZN/POLY 15 GM TUBE TP SCH ×2 (03:39→17:30)
[2017-06-08] MEDS: ACYCLOVIR IV 1 GM in IV D5W 250 ML IV SCH ×3 (04:30→20:37)
[2017-06-08 05:16] LABS: CREATININE 9.2 mg/dL (0.6-1.3)
--- NOTE | 2017-06-08 06:10 | NUR ---
RN CLOSING NOTES PT REMAINS STABLE OF THE MOMENT. ALL DUE MEDS GIVEN, AM CARE PROVIDED. WILL ENDORSE NÉSTOR TO AM RN
--- NOTE | 2017-06-08 07:45 | NUR ---
RN INITIAL NOTES RECEIVED PT SEDATED, VENT SETTINGS TOLERATED WELL, NAD NOTED. REMAINS ON COOLING BLANKET; TEMP @ 100.3. SINUS TACH ON THE MONITOR. PT ON VERSED AND FENTALYL DRIPS ORDERED. NGT IN PLACE AND ATTACHED TO LIS WITH GREENISH OUTPUT NOTED. JOHN SOFT WRIST RESTRAINTS, SKIN AND CIRCULATION WNL.TRIPLE LUMEN RT IJ IN PLACE WITH RT FEMORAL HD ACCESS SECURED WITH INTACT DRESSING. BATES CATH CONTINUES TO DRAIN THRU GRAVITY. POSITIONED FOR COMFORT, SAFETY ENSURED. WILL MONITOR ACCORDINGLY.
[2017-06-08] MEDS: HEPARIN SODIUM, PORCINE 5000 UNITS/1 ML VIAL SQ SCH ×2 (08:04→20:38)
[2017-06-08] MEDS: PANTOPRAZOLE 40 MG VIAL IV SCH (08:05)
[2017-06-08 09:23] LABS: ABG BASE EXCESS -7.3 mmol/L; ABG OXYGEN SATURATION 95.6 % (92.0-98.5); ABG PCO2 24.3 mmHg (35.0-45.0); ABG PH 7.422 (7.350-7.450); AaDO2 170.3 mmHg; COHb 0.8 % (0.5-1.5); MetHb 0.2 % (0.0-1.5); O2Hb 94.6 % (94.0-97.0); PEEP,BG 5 cm H2O; SITE, ABG Left Brachial; VT, ABG 600 mL
[2017-06-08] MEDS: MIDAZOLAM HCL 100 MG in IV NS 0.9% 80 ML IV PRN (15:48)
--- NOTE | 2017-06-08 18:01 | NUR ---
RT NOTE: PATIENT RECEIVED ORALLY INTUBATED WITH 7.5 ETT SECURED AT 23 CM MID LIP LINE ON MECHANICAL VENT. ALARMS VERIFIED AND AUDIBLE. SUCTIONED AND LAVAGED THICK RAYO SECRETIONS. VENT PLUGGED INTO RED OUTLET. AMBU BAG AT [facility].
--- NOTE | 2017-06-08 18:51 | NUR ---
rn closing notes pt remains sedated; fentanyl and versed drip infusing as directed. ETT in place; suctioned as needed; good oral care rendered. all meds given. ngt to suction with green colored output. rt femoral hd access in place and rt ij secured with intact dressing. sinus tach on the monitor. all needs atteded. will endorse to next shift for continuity of care in stable condition.
--- NOTE | 2017-06-08 19:00 | NUR ---
RN INITIAL NOTES RECEIVED PT SEDATED ON BED WITH VERSED 6MG/HR(2MLS/HR) AND FENTANYL 50MCG/HR(10MLS/HR); PATIENT IS CURRENTLY GRIMACING AND MOVING HIS HEAD [id number], WILL INCREASE SEDATION PER PROTOCOL. INTUBATED AND ON VENT WITH SETTINGS AC 30, TV 600, FIO2 40%, PEEP 5, ETT 7.5/23@LIP, SATURATING WELL. CURRENTLY ST ON THE MONITOR, HR 110'S. ON CVP MONITORING. OGT CONNECTED TO LOW INTERMITTENT SUCTIONING, GREEN OUTPUT NOTED. BAETS CATH IN PLACE. RIGHT FEMORAL HD CATH INTACT. RIGHT IJ TLC TKO, FLUSHED AND PATENT, NO S/S OF INFILTRATION/INFECTION, DRESSING CDI. BED LOW AND LOCKED, SIDERAILS UP, BED ALARM ON, BILATERAL SOFT WRIST RESTRAINTS IN PLACE FOR SAFETY. WILL MONITOR
--- NOTE | 2017-06-08 20:32 | NUR ---
PT RECEIVED INTUBATED 7.5 ETT SECURED AT 23CM AT THE LIP. NO RESP DISTRESS. PT TOLERATING VENT SETTINGS. SX'D FOR SML AMT OF THIN WHITE SECRETIONS. VENT ALARMS SET AND AUDIBLE. AMBU BAG AT BEDSIDE. VENT PLUGGED INTO RED OUTLET. WILL CONTINUE TO MONITOR. Addendum: 06/08/17 at 2033 by BARAK COBOS RT Amended: Links added.
[2017-06-08] MEDS: IV NS 0.9% 250 ML IV PRN (20:40)
[2017-06-08] MEDS: IV NS 0.9% 500 ML IV PRN (20:40)
[2017-06-08] MEDS ORDERED: PHARMACY TO DOSE XX ONE (23:30)
[2017-06-09] VITALS (60 sets, daily range): BP systolic 103–163; BP diastolic 64–105
[2017-06-09] MEDS: FENTANYL CITRATE IV 1,250 MCG in IV NS 0.9% 225 ML IV PRN ×2 (00:02→23:41)
[2017-06-09] MEDS: ACETAMINOPHEN 650 MG/SUPP.RECT RC PRN (00:09)
[2017-06-09] MEDS: ALBUTEROL FS 2.5 MG/0.5 ML VIAL.NEB NEB SCH ×6 (03:03→23:07)
[2017-06-09] MEDS: IPRATROPIUM NEB FS 0.5 MG/2.5 ML AMPUL.NEB NEB SCH ×6 (03:03→23:07)
[2017-06-09] MEDS: NEOMY SULF/BACITRAC ZN/POLY 15 GM TUBE TP SCH ×2 (03:46→15:58)
[2017-06-09] MEDS: ACYCLOVIR IV 1 GM in IV D5W 250 ML IV SCH ×3 (04:14→21:53)
[2017-06-09 04:46] LABS: EOSINOPHILS % (AUTO) 3.5 % (0.0-6.0); HEMATOCRIT 28 % (39-51); HEMOGLOBIN 9.7 g/dL (13.5-17.5); LYMPHOCYTES # (AUTO) 0.6 /CMM (0.8-4.8); LYMPHOCYTES % (AUTO) 3.1 % (20.0-44.0); MEAN CORPUSCULAR HEMOGLOBIN 29 PG (26.0-33.0); MEAN CORPUSCULAR HGB CONC 35 g/dl (31.0-36.0); MEAN CORPUSCULAR VOLUME 81 fL (80-96); MONOCYTES # (AUTO) 1.2 /CMM (0.1-1.30); MONOCYTES % (AUTO) 5.9 % (2.0-12.0); NEUTROPHILS # (AUTO) 17.3 /CMM (1.8-8.9); NEUTROPHILS % (AUTO) 87.5 % (43.0-81.0); PLATELET COUNT (AUTO) 252 /CMM (150-450); RDW COEFFICIENT OF VARIATION 15.2 (11.5-15.0); RED BLOOD CELL COUNT(AUTO) 3.41 MIL/uL (4.5-6.0); WHITE BLOOD COUNT (AUTO) 19.8 K/uL (4.3-11.0)
[2017-06-09] MEDS: MIDAZOLAM HCL 100 MG in IV NS 0.9% 80 ML IV PRN (05:01)
[2017-06-09 05:08] LABS: CALCIUM, SERUM 7.7 mg/dL (8.5-10.1); MAGNESIUM 2.5 mg/dL (1.8-2.4)
[2017-06-09 05:13] LABS: POTASSIUM 4.4 mmol/L (3.5-5.1)
[2017-06-09 05:44] LABS: PHOSPHORUS 8.5 mg/dL (2.5-4.9)
--- NOTE | 2017-06-09 06:00 | NUR ---
RN CLOSING NOTES PT REMAINS STABLE OF THE MOMENT. ALL DUE MEDS GIVEN, AM CARE PROVIDED. WILL ENDORSE NÉSTOR TO AM RN
--- NOTE | 2017-06-09 07:35 | NUR ---
RT PT RECEIVED ORALLY INTUBATED WITH A 7.5 ETT SECURED AT 23CM AT THE LIP LINE. PT IS ON THE VENT WITH NOTED SETTINGS. VENT ALARMS ARE SET AND AUDIBLE WITH BVM BY BEDSIDE. PT IS CURRENTLY SEDATED AT THIS TIME, BUT RESPONDS TO STIMULI. HEAD TURBINE OPERATOR CUFF PRESSURE NOTED. VENT IS PLUGGED INTO RED OUTLET. PT SX THICK SECRETIONS. NO RESPIRATORY DISTRESS NOTED AT THIS TIME, WILL CONTINUE TO MONITOR. Addendum: 06/09/17 at 1639 by MARYLOU RODRIGUEZ RT Amended: Links added.
[2017-06-09] MEDS ORDERED: D5W IV ONE (08:00)
[2017-06-09] MEDS ORDERED: PENICILLIN IV ONE (08:00)
[2017-06-09] MEDS: HEPARIN SODIUM, PORCINE 5000 UNITS/1 ML VIAL SQ SCH ×2 (08:34→21:32)
[2017-06-09] MEDS: PANTOPRAZOLE 40 MG VIAL IV SCH (08:34)
[2017-06-09] MEDS: CLINDAMYCIN 900 MG in IV D5W 50 ML IV SCH ×3 (08:44→21:33)
--- NOTE | 2017-06-09 12:16 | NUR ---
CAROLE followed up with [place] persons and spoke with Officer Fabio to inquire if they found a missing person's match to the pt. According to Officer Fabio, they are unable to find a match at this time. Officer Fabio stated they cannot fingerprint the pt. unless he is under arrest.
[2017-06-09] MEDS: D5W IV SCH ×2 (15:58→23:26)
[2017-06-09] MEDS: PENICILLIN IV SCH ×2 (15:58→23:26)
--- NOTE | 2017-06-09 20:00 | NUR ---
received pt from day shift, sedated on versed at 7mg, receiving fentanyl at 50mcg, SR, on the vent, intubated, lungs congested, pitting edema throughout, CVP monitoring, NG to feeding tolerates well, f/c low output, HD pt, restraints on, v/s stable, no pain, pt turned and repositioned.
--- NOTE | 2017-06-09 20:07 | NUR ---
PT RECEIVED INTUBATED 7.5 ETT SECURED AT 23CM AT THE LIP. NO RESP DISTRESS. PT TOLERATING VENT SETTINGS. SX'D FOR SML AMT OF THIN WHITE SECRETIONS. VENT ALARMS SET AND AUDIBLE. AMBU BAG AT BEDSIDE. VENT PLUGGED INTO RED OUTLET. WILL CONTINUE TO MONITOR. Addendum: 06/09/17 at 2007 by BARAK COBOS RT Amended: Links added.
[2017-06-10] VITALS (48 sets, daily range): BP systolic 95–157; BP diastolic 56–96
--- NOTE | 2017-06-10 00:26 | NUR ---
pt is resting in the bed, SR, on versed at 7mg and fentanyl at 50mcg, v/s stable, no pain, pt turned and repositioned q2hrs.
[2017-06-10] MEDS: ACETAMINOPHEN 650 MG/20.3 ML UDC NG PRN (00:46)
[2017-06-10] MEDS: IPRATROPIUM NEB FS 0.5 MG/2.5 ML AMPUL.NEB NEB SCH ×6 (03:39→23:27)
[2017-06-10] MEDS: ALBUTEROL FS 2.5 MG/0.5 ML VIAL.NEB NEB SCH ×6 (03:39→23:27)
[2017-06-10] MEDS: CLINDAMYCIN 900 MG in IV D5W 50 ML IV SCH ×3 (04:04→20:51)
[2017-06-10] MEDS: NEOMY SULF/BACITRAC ZN/POLY 15 GM TUBE TP SCH ×2 (04:04→16:09)
--- NOTE | 2017-06-10 04:20 | NUR ---
pt is resting in the bed, on versed at 7mg and fentanyl at 50mcg, SR, tube feeding stopped, high residual, abdomen distended, will notify MD, v/s stable, no pain, pt cleaned, changed and repositioned q2hrs.
[2017-06-10 04:54] LABS: HEMATOCRIT 31 % (39-51); HEMOGLOBIN 11.2 g/dL (13.5-17.5); MEAN CORPUSCULAR HEMOGLOBIN 29 PG (26.0-33.0); MEAN CORPUSCULAR HGB CONC 36 g/dl (31.0-36.0); MEAN CORPUSCULAR VOLUME 81 fL (80-96); PLATELET COUNT (AUTO) 422 /CMM (150-450); RDW COEFFICIENT OF VARIATION 14.1 (11.5-15.0); RED BLOOD CELL COUNT(AUTO) 3.86 MIL/uL (4.5-6.0)
[2017-06-10] MEDS: ACYCLOVIR IV 1 GM in IV D5W 250 ML IV SCH ×3 (04:58→21:34)
[2017-06-10 05:15] LABS: CALCIUM, SERUM 7.8 mg/dL (8.5-10.1); MAGNESIUM 2.8 mg/dL (1.8-2.4)
[2017-06-10] MEDS: MIDAZOLAM HCL 100 MG in IV NS 0.9% 80 ML IV PRN ×2 (05:20→17:57)
[2017-06-10 05:39] LABS: CREATININE 10.5 mg/dL (0.6-1.3); PHOSPHORUS 12.7 mg/dL (2.5-4.9)
[2017-06-10 06:26] LABS: EOSINOPHILS % (MANUAL) 1 % (0-4); LYMPHOCYTES % (MANUAL) 1 % (16-48); MONOCYTES % (MANUAL) 1 % (0-11.0); NEUTROPHILS % (MANUAL) 97 (42-76)
--- NOTE | 2017-06-10 07:30 | NUR ---
ICU/RN: Pt received, intubated, breathing even and unlabored, airway cleared of secretions; R IJ TLC patent, intact with Versed and Fentanyl infusing well. Pt noted to be lightly sedated and restless, fighting vent, unable to follow commands. Repositioned for comfort. GT aspirated with coffee ground drainage, abd distended, pt with facial grimacing upon palpation. Placed GT on LIS, with immediate output of 250cc coffee ground residual. Flexiseal in place, with green liquid output. FC with scant amount of dark nickolas urine. Alarm sounds audible, safety measures in place, will cont to monitor pt.
--- NOTE | 2017-06-10 07:34 | NUR ---
RT PT RECEIVED ORALLY INTUBATED WITH A 7.5 ETT SECURED AT 23CM AT THE LIP LINE. PT IS ON THE VENT WITH NOTED SETTINGS. VENT ALARMS ARE SET AND AUDIBLE WITH BVM BY BEDSIDE. PT IS CURRENTLY SEDATED AT THIS TIME, BUT RESPONDS TO STIMULI. SENIOR POLICY ASSOCIATE CUFF PRESSURE NOTED. VENT IS PLUGGED INTO RED OUTLET. PT SX'D MODERATE THICK SECRETIONS. NO RESPIRATORY DISTRESS NOTED AT THIS TIME, WILL CONTINUE TO MONITOR. Addendum: 06/10/17 at 1408 by MARYLOU RODRIGUEZ RT Amended: Links added.
--- NOTE | 2017-06-10 08:15 | NUR ---
ICU/RN: Dr Chawla at bedside; updated on pt status; informed of coffee ground output; pt on LIS, TF and heparin held.
[2017-06-10] MEDS: PANTOPRAZOLE 40 MG VIAL IV SCH (08:33)
[2017-06-10] MEDS: D5W IV SCH ×2 (08:33→16:07)
[2017-06-10] MEDS: PENICILLIN IV SCH ×2 (08:33→16:07)
[2017-06-10] MEDS: HEPARIN SODIUM, PORCINE 5000 UNITS/1 ML VIAL SQ SCH ×2 (09:00→20:52)
--- NOTE | 2017-06-10 11:00 | NUR ---
ICU/RN: Pt off HD, tolerated well. 1000 ml out.
--- NOTE | 2017-06-10 11:30 | NUR ---
ICU/RN: Dr Morales rounds; informed of gastric output; watery green stool, fevers, abn labs. New orders noted and carried out. sales applications engineer updated.
[2017-06-10] MEDS: ACETAMINOPHEN 650 MG/SUPP.RECT RC PRN (12:43)
[2017-06-10] MEDS: LORAZEPAM INJ 2 MG/ML VIAL IV PRN (12:43)
[2017-06-10] MEDS: Z GUARD REMEDY 2 OZ OINT TP PRN (12:43)
--- NOTE | 2017-06-10 14:00 | NUR ---
ICU/RN: Cooling measures and tylenol effective, pt temp <99.9.
--- NOTE | 2017-06-10 15:00 | NUR ---
ICU/RN: Complete bed bath, wound care rendered. Flexiseal bag changed.
--- NOTE | 2017-06-10 19:05 | NUR ---
ICU/RN: Pt in bed, afebrile, cooling measures in place, GT set to LIS with 400cc output of gastric output. FC with 175 cc nickolas urine out. VSS care endorsed to PM RN for NÉSTOR.
--- NOTE | 2017-06-10 20:33 | NUR ---
received pt from day shift, sedated on versed at 8mg/hr and fentanyl at 50mcg/hr, SR, CVP monitoring, on the vent, lungs congested, pitting/non pitting edema throughout, OG to LIS coffee ground drainage, restraints on, rectal tube intact, f/c very low output, HD pt, v/s stable, no pain, on cooling blanket, pt turned and repositioned.
[2017-06-11] VITALS (43 sets, daily range): BP systolic 107–153; BP diastolic 48–94
--- NOTE | 2017-06-11 | NUR ---
pt is resting in the bed, v/s stable, no pain, pt turned and repositioned q2hrs.
[2017-06-11] MEDS: FENTANYL CITRATE IV 1,250 MCG in IV NS 0.9% 225 ML IV PRN (00:54)
[2017-06-11] MEDS: NEOMY SULF/BACITRAC ZN/POLY 15 GM TUBE TP SCH ×2 (03:23→17:00)
[2017-06-11] MEDS: IPRATROPIUM NEB FS 0.5 MG/2.5 ML AMPUL.NEB NEB SCH ×6 (03:35→22:52)
[2017-06-11] MEDS: ALBUTEROL FS 2.5 MG/0.5 ML VIAL.NEB NEB SCH ×6 (03:35→22:52)
[2017-06-11] MEDS: ACYCLOVIR IV 1 GM in IV D5W 250 ML IV SCH ×3 (04:01→21:49)
--- NOTE | 2017-06-11 04:20 | NUR ---
pt is resting in the bed, no acute distress overnight, on versed at 8mg and fentanyl at 50mcg, SR, v/s stable, no pain, pt cleaned, changed and repositioned q2hrs.
[2017-06-11] MEDS ORDERED: MEROPENEM 1 G in IV NS 0.9% 100 ML IV SCH (05:00)
[2017-06-11] MEDS: MIDAZOLAM HCL 100 MG in IV NS 0.9% 80 ML IV PRN (06:04)
[2017-06-11] MEDS: PANTOPRAZOLE 40 MG VIAL IV SCH (08:23)
[2017-06-11] MEDS: HEPARIN SODIUM, PORCINE 5000 UNITS/1 ML VIAL SQ SCH ×2 (08:23→21:00)
[2017-06-11 09:10] LABS: BASOPHILS # (AUTO) 0.2 /CMM (0.0-0.2); EOSINOPHILS % (AUTO) 3.3 % (0.0-6.0); HEMATOCRIT 29 % (39-51); HEMOGLOBIN 10.4 g/dL (13.5-17.5); LYMPHOCYTES # (AUTO) 0.5 /CMM (0.8-4.8); LYMPHOCYTES % (AUTO) 2.3 % (20.0-44.0); MEAN CORPUSCULAR HEMOGLOBIN 29 PG (26.0-33.0); MEAN CORPUSCULAR HGB CONC 36 g/dl (31.0-36.0); MEAN CORPUSCULAR VOLUME 82 fL (80-96); MONOCYTES # (AUTO) 0.4 /CMM (0.1-1.30); MONOCYTES % (AUTO) 1.9 % (2.0-12.0); NEUTROPHILS # (AUTO) 18.4 /CMM (1.8-8.9); NEUTROPHILS % (AUTO) 91.5 % (43.0-81.0); PLATELET COUNT (AUTO) 527 /CMM (150-450); RDW COEFFICIENT OF VARIATION 13.9 (11.5-15.0); RED BLOOD CELL COUNT(AUTO) 3.53 MIL/uL (4.5-6.0); WHITE BLOOD COUNT (AUTO) 20.2 K/uL (4.3-11.0)
[2017-06-11] MEDS ORDERED: FEE PK DOSING 1 MIN EA MC ONE (09:34)
[2017-06-11 09:45] LABS: CALCIUM, SERUM 7.4 mg/dL (8.5-10.1); POTASSIUM 5.3 mmol/L (3.5-5.1)
[2017-06-11 09:50] LABS: CREATININE 9.9 mg/dL (0.6-1.3)
[2017-06-11] MEDS: MEROPENEM 500 MG in IV NS 0.9% 50 ML IV SCH (10:33)
--- NOTE | 2017-06-11 10:41 | NUR ---
RT NOTE PT RECEIVED MECHANICALLY VENTILATED VIA 7.5 ETT 23 CM AT LIP. SETTINGS PRESCRIBED. ALARMS SET PER PROTOCOL AND AUDIBLE. VENT PLUGGED IN TO RED OUTLET. TRACH MIDLINE AND SECURE. MAPPING ANALYST PERFORMED. AMBU BAG AT BED SIDE. NO DISTRESS NOTED. WILL CONTINUE TO MONITOR.
[2017-06-11] MEDS ORDERED: VANCOMYCIN 1 GM in IV NS 0.9% 250 ML IV ONE (11:00)
[2017-06-11 11:11] LABS: ALBUMIN 1.7 g/dL (3.4-5.0); BILIRUBIN,DIRECT 0.9 mg/dL (0.0-0.2); BILIRUBIN,TOTAL 1.5 mg/dL (0.2-1.0); TOTAL PROTEIN, SERUM 6.2 g/dL (6.4-8.2)
[2017-06-11] MEDS: SEVELAMER CARBONATE 0.8 GM POWD.PACK GT SCH ×3 (11:19→17:39)
--- NOTE | 2017-06-11 12:22 | NUR ---
ORACLE IAM CONSULTANT NOTE 0720: Received patient on sedation. With ETT to vent, tolerated settings at this time. No respiratory distress noted at this time. With OGT intact, connected to LIS for episode of high residuals and coffee ground. With RIJ TLC intact, on Versed and Fentanyl drips, will titrate as ordered. With finnegan cath intact, noted with nickolas colored urine with sediments. With SUPERVISOR PARTICLEBOARD restraints on for safety, noted with frequent movements at times. CVP reads 11. Noted with general rash 2/2 ATB reaction, will monitor. 0900: Done with sedation vacation, noted patient with frequent movements and does not follow commands. Agitated and noted with increased work of breathing, titrated Fentanyl and Versed up. 0930: S/E by dr. Pool, with order of HD today. 1145: S/E by Dr. Chawla, with order to turn off Versed and Fentanyl now and try to wake up patient. Noted with temp of 99.7, placed back the cooling blanket on. Will monitor. 1220: Off sedation, patient RR 34, noted with movements of the head. Tried to wake up patient but does not follow commands still. Will keep sedation off.n SUPERVISOR PARTICLEBOARD restraints on.
[2017-06-11 12:37] LABS: CREATINE KINASE MB 4.1 ng/mL (0-3.6)
[2017-06-11] MEDS: LORAZEPAM INJ 2 MG/ML VIAL IV PRN (17:46)
--- NOTE | 2017-06-11 19:23 | NUR ---
BEEF TRIMMER NOTE HD done with 2000mL out. Remained off sedation. Ativan x1 dose given. VSS.
--- NOTE | 2017-06-11 19:40 | NUR ---
FIELD CONTACT PERSON: RECEIVED ORALLY INTUBATED PT TO VENT WT SETTINGS ORDERED. NO ACUTE DISTRESS, NO EVIDENCE OF DISCOMFORT. STILL OF SEDATION. EYES OPEN TO PAINFUL STIMULI. UNABLE TO FOLLOW COMMANDS. ST ON MARKET RISK SPECIALIST WT HR LESS THAN 120. AFEBRILE. OGT TO LOW INTERMITTENT SUCTION WT GREENISH TO COFFEE GROUND SECRETIONS. F/C DRAINING BIPIN COLORED URINE WT SEDIMENTS. RT. IJ TL IN PLACE TO TKO. LT. FEMORAL HD CATH INTACT. RECTAL TUBE WT DARK GREEN LIQUID STOOL FROM PREVIOUS SHIFT. HOB AT 35 DEGREES. BILAT. SOFT WRIST RESTRAINTS IN PLACE TO PREVENT POSSIBLE SELF EXTUBATION SINCE JUST RECENTLY TAKEN OFF SEDATION MED. SKIN AND CIRCULATION WNL. SAFETY PRECAUTION NOTED. WILL CONTINUE TO MONITOR.
[2017-06-12] VITALS (35 sets, daily range): BP systolic 109–162; BP diastolic 57–99
[2017-06-12] MEDS: LORAZEPAM INJ 2 MG/ML VIAL IV PRN ×4 (00:26→21:44)
--- NOTE | 2017-06-12 00:30 | NUR ---
REGULATORY AFFAIRS SPEC: ATIVAN GIVEN ORDERED FOR EPISODE OF RESTLESSNESS, INCREASED WORK OF BREATHING & TRYING TO REACH TUBINGS. BILAT. SOFT WRIST RESTRAINTS IN PLACE TO PREVENT SELF EXTUBATION. SKIN AND CIRCULATION WNL. WILL CONTINUE TO MONITOR.
--- NOTE | 2017-06-12 01:00 | NUR ---
TRANSPORTATION AGENT: REASSESSED AFTER GIVEN ATIVAN, STILL NOTED WT A LITTLE RESTLESSNESS. NO NEED TO RESTART VERSED/FENTANYL AT THIS TIME. PT REMAINS UNABLE TO FOLLOW SIMPLE COMMANDS.
[2017-06-12] MEDS: IV NS 0.9% 500 ML IV PRN (03:12)
[2017-06-12] MEDS: IPRATROPIUM NEB FS 0.5 MG/2.5 ML AMPUL.NEB NEB SCH ×6 (03:25→23:16)
[2017-06-12] MEDS: ALBUTEROL FS 2.5 MG/0.5 ML VIAL.NEB NEB SCH ×6 (03:25→23:16)
--- NOTE | 2017-06-12 03:40 | NUR ---
OUTPATIENT PHARMACY MANAGER: REASSESSED AFTER GIVEN ATIVAN WT GOOD EFFECT. NO RESTLESSNESS NOTED AT THIS TIME. OCCASIONAL MOVING OF HEAD NOTED, STILL UNABLE TO FOLLOW COMMANDS.
[2017-06-12] MEDS: NEOMY SULF/BACITRAC ZN/POLY 15 GM TUBE TP SCH ×2 (04:00→17:03)
[2017-06-12 04:41] LABS: EOSINOPHILS % (AUTO) 1.7 % (0.0-6.0); HEMATOCRIT 28 % (39-51); HEMOGLOBIN 9.8 g/dL (13.5-17.5); LYMPHOCYTES # (AUTO) 0.4 /CMM (0.8-4.8); MEAN CORPUSCULAR HEMOGLOBIN 28 PG (26.0-33.0); MEAN CORPUSCULAR HGB CONC 35 g/dl (31.0-36.0); MEAN CORPUSCULAR VOLUME 81 fL (80-96); MONOCYTES # (AUTO) 0.5 /CMM (0.1-1.30); MONOCYTES % (AUTO) 2.4 % (2.0-12.0); NEUTROPHILS # (AUTO) 20.2 /CMM (1.8-8.9); NEUTROPHILS % (AUTO) 93.9 % (43.0-81.0); PLATELET COUNT (AUTO) 581 /CMM (150-450); RDW COEFFICIENT OF VARIATION 14.6 (11.5-15.0); RED BLOOD CELL COUNT(AUTO) 3.46 MIL/uL (4.5-6.0); WHITE BLOOD COUNT (AUTO) 21.5 K/uL (4.3-11.0)
[2017-06-12] MEDS: IV NS 0.9% 250 ML IV PRN (04:42)
[2017-06-12] MEDS: ACYCLOVIR IV 1 GM in IV D5W 250 ML IV SCH ×3 (04:49→21:44)
[2017-06-12 05:00] LABS: INR 1.54 (0.87-1.13)
[2017-06-12 05:04] LABS: CALCIUM, SERUM 6.9 mg/dL (8.5-10.1); POTASSIUM 5.1 mmol/L (3.5-5.1)
[2017-06-12 05:07] LABS: CREATININE 9.1 mg/dL (0.6-1.3)
[2017-06-12 05:23] LABS: LYMPHOCYTES % (MANUAL) 4 % (16-48); NEUTROPHILS % (MANUAL) 96 (42-76)
--- NOTE | 2017-06-12 07:10 | NUR ---
RN INITIAL NOTES RECEIVED PT INTUBATED, ON VENT. NO RESPIRATORY DISTRESS NOTED. NO SOB NOTED. NO SIGNS OF PAIN NOTED. RIJ TLC IN PLACE. OG CONNECTED TO LIC, COFFEE GROUND OUTPUT NOTED. RIGHT FEMORAL HD CATH IN PLACE. DRESSING CLEAN AND DRY. FC IN PLACE. BIPIN URINE NOTED. RECTAL TUBE IN PLACE. BLE ELEVATED. PT COMFORTABLE. WILL CONTINUE TO MONITOR.
[2017-06-12] MEDS: SEVELAMER CARBONATE 0.8 GM POWD.PACK GT SCH ×3 (08:29→17:02)
[2017-06-12] MEDS: PANTOPRAZOLE 40 MG VIAL IV SCH (08:29)
[2017-06-12] MEDS: HEPARIN SODIUM, PORCINE 5000 UNITS/1 ML VIAL SQ SCH ×2 (08:30→21:45)
--- NOTE | 2017-06-12 08:30 | NUR ---
RN NOTES HD STARTED. NO RESPIRATORY DISTRESS NOTED. NO SOB NOTED. NO SIGNS OF PAIN NOTED. VS STABLE. WILL MONITOR.
--- NOTE | 2017-06-12 08:35 | NUR ---
RT PATIENT REC'D ORALLY INTUBATED ON [facility] VENT WITH SETTINGS SET BY MD MAUDE OLEARY. VENT ALARMS CHECKED + AUDIBLE. CUFF PRESSURE CHECKED SEISMOGRAPH CHIEF. SX'D WITH SMALL/MOD AMT PALE SEMITHICK SECRETIONS. B/S DIMINISHED. AMBU BAG AT HOB Addendum: 06/12/17 at 1134 by CHRISTINE LOPEZ RT Amended: Links added.
--- NOTE | 2017-06-12 10:15 | NUR ---
RN NOTES HD DONE. REMOVED 1L. TOLERATED WELL. NO RESPIRATORY DISTRESS NOTED. NO SOB NOTED. NO SIGNS OF PAIN NOTED. WILL MONITOR.
[2017-06-12] MEDS: MEROPENEM 500 MG in IV NS 0.9% 50 ML IV SCH (10:38)
--- NOTE | 2017-06-12 10:50 | NUR ---
RN NOTES SEEN AND EXAMINED BY DR. KERN. PT REMAINS INTUBATED, ON VENT. NO RESPIRATORY DISTRESS NOTED. NO SOB NOTED. PT OBTUNDED. PT OFF VERSED AND FENTANYL DRIP. HD DONE, REMOVED 1L. WILL CONTINUE TO MONITOR.
[2017-06-12] MEDS ORDERED: VANCOMYCIN 500 MG in IV NS 0.9% 100 ML IV PRN (16:00)
--- NOTE | 2017-06-12 16:50 | NUR ---
RN NOTES SEEN AND EXAMINED BY DR. DUENAS. PT INTUBATED, ON VENT. NO DISTRESS NOTED. PT OFF FENTANYL AND VERSED DRIP. AWARE OF LAB VALUES: WBC 21.5, HGB 9.8, HCT 28, PLATELET 581, BUN 111, CREA 9.1. HD DONE, 1L OUT. WILL CONTINUE TO MONITOR
--- NOTE | 2017-06-12 18:55 | NUR ---
RN CLOSING NOTES NO SIGNIFICANT CHANGE NOTED. PT NOT ON ANY DISTRESS. NO SIGNS OF PAIN NOTED. RIJ TLC IN PLACE. OG IN PLACE, CONNECTED TO LIS. FC IN PLACE. RECTAL TUBE IN PLACE. TX PROVIDED ORDERED. KEPT CLEAN AND DRY. REPOSITIONED Q2. WILL ENDORSE FOR CONTINUITY OF CARE.
--- NOTE | 2017-06-12 19:40 | NUR ---
RN INITIAL NOTES RECEIVED PT INTUBATED, ON VENT. AIRWAY KEPT CLEAR, SUCTIONED PRN. ST ON MONITOR, HR AT 106. RIJ TLC IN PLACE. OG CONNECTED TO LIC, COFFEE GROUND OUTPUT NOTED, MINIMAL AMOUNT. RIGHT FEMORAL HD CATH WITH DRESSING C/D/I. FC IN PLACE, DRAINING VIA GRAVITY WITH YELLOW URINE. RECTAL TUBE IN PLACE. BLE ELEVATED. REPOSITIONED FOR COMFORT AND SAFETY. WILL CONTINUE TO MONITOR.
[2017-06-13] VITALS (70 sets, daily range): BP systolic 89–148; BP diastolic 44–97
[2017-06-13] MEDS: ALBUTEROL FS 2.5 MG/0.5 ML VIAL.NEB NEB SCH ×6 (03:00→23:55)
[2017-06-13] MEDS: IPRATROPIUM NEB FS 0.5 MG/2.5 ML AMPUL.NEB NEB SCH ×6 (03:00→23:54)
[2017-06-13] MEDS: LORAZEPAM INJ 2 MG/ML VIAL IV PRN ×2 (03:01→15:27)
[2017-06-13] MEDS: ACYCLOVIR IV 1 GM in IV D5W 250 ML IV SCH ×2 (04:32→12:51)
[2017-06-13] MEDS: NEOMY SULF/BACITRAC ZN/POLY 15 GM TUBE TP SCH ×2 (04:32→18:22)
[2017-06-13] MEDS: IV NS 0.9% 500 ML IV PRN (04:33)
[2017-06-13] MEDS: IV NS 0.9% 250 ML IV PRN (04:33)
[2017-06-13 04:50] LABS: CALCIUM, SERUM 7.1 mg/dL (8.5-10.1); POTASSIUM 4.4 mmol/L (3.5-5.1)
[2017-06-13 04:51] LABS: CREATININE 8.3 mg/dL (0.6-1.3)
--- NOTE | 2017-06-13 06:38 | NUR ---
RN CLOSING NOTES NO ACUTE CHANGE IN CONDITION OBSERVED OVERNIGHT. STABLE, AFEBRILE. REMAINS ST, 107 HR. TOLERATING VENT SETTINGS WELL, AIRWAY SUCTIONED PRN. CVP MAINTAINED. F/C IN PLACE, DRAINING WELL VIA GRAVITY WITH YELLOW URINE. FLEXISEAL INTACT, GREENISH OUTPUT. OG TO LIS, GREENISH OUTPUT. B SOFT WRIST RESTRAINTS IN PLACE, CIRCULATION AND SKIN INTEGRITY ENSURED. MEDICATED WITH ATIVAN X2 FOR EPISODES OF RESTLESSNESS, WITH GOOD HELP. SAFETY AND COMFORT ENSURED. WOUND CARE DONE. TURNED AND REPOSITIONED. WILL ENDORSE ACCORDINGLY FOR CONTINUITY OF CARE.
--- NOTE | 2017-06-13 08:13 | NUR ---
RT PATIENT REC'D ORALLY INTUBATED ON [facility] VENT WITH SETTINGS SET BY MD MAUDE OLEARY. VENT ALARMS CHECKED + AUDIBLE. CUFF PRESSURE CHECKED SECURITY TECHNICIAN. SX'D WITH SMALL/MOD AMT PALE SEMITHICK SECRETIONS. B/S DIMINISHED. AMBU BAG AT HOB Addendum: 06/13/17 at 1814 by CHRISTINE LOPEZ RT Amended: Links added.
[2017-06-13 08:50] LABS: ABG BASE EXCESS -3.2 mmol/L; ABG PH 7.389 (7.350-7.450); ABG PO2 84.1 mmHg (75.0-100.0); AaDO2 159.7 mmHg; COHb 1.3 % (0.5-1.5); O2Hb 93.8 % (94.0-97.0); PEEP,BG 5 cm H2O; SITE, ABG Right Radial; VT, ABG 550 mL
[2017-06-13] MEDS: PANTOPRAZOLE 40 MG VIAL IV SCH (08:55)
[2017-06-13] MEDS: SEVELAMER CARBONATE 0.8 GM POWD.PACK GT SCH ×3 (08:55→18:22)
[2017-06-13] MEDS: MEROPENEM 500 MG in IV NS 0.9% 50 ML IV SCH (08:55)
[2017-06-13] MEDS: HEPARIN SODIUM, PORCINE 5000 UNITS/1 ML VIAL SQ SCH (09:07)
[2017-06-13] MEDS: ACETAMINOPHEN 650 MG/20.3 ML UDC NG PRN ×2 (09:08→15:23)
--- NOTE | 2017-06-13 11:00 | NUR ---
PT NOTED TO HAVE LABORED BREATHING ON CURET VENT SETTINGS, DR ROJAS HERE TO SEE PT. OK TO START DIPRIVAN.
[2017-06-13] MEDS ORDERED: PROPOFOL 100 ML IV PRN (12:00)
--- NOTE | 2017-06-13 12:40 | NUR ---
DESPITE DIPRIVAN PT'S BREATHING IS VERY LABORED. DR KERN NOTIFIED. WILL RESUME VERSED AND FENTANYL.
[2017-06-13] MEDS: FENTANYL CITRATE IV 1,250 MCG in IV NS 0.9% 225 ML IV PRN ×2 (14:00→18:30)
[2017-06-13] MEDS: MIDAZOLAM HCL 100 MG in IV NS 0.9% 80 ML IV PRN (14:01)
--- NOTE | 2017-06-13 15:30 | NUR ---
TEMP 101.3, TYLENOL AND COOLING MEASURES INITIATED.
--- NOTE | 2017-06-13 15:30 | NUR ---
PT CONTINUES LABORED AND FAST BREATHING SEDATION TITRATED PER PROTOCOL. ATIVAN 2MG IV ALSO GIVEN.
[2017-06-13] MEDS: LACTOBACILLUS RHAMNOSUS GG 1 EACH CAP.SPRINK PO SCH (18:22)
[2017-06-13] MEDS: NEPRO 1,000 ML BOTTLE GT SCH (18:38)
--- NOTE | 2017-06-13 19:00 | NUR ---
RN INITIAL NOTES RECEIVED THE PATIENT SEDATED ON BED WITH VERSED @ 7MG/HR AND FENTANYL @ 100MCG/HR. INTUBATED AND ON VENT WITH SETTINGS AC 30, TV 550, FIO2 40%, PEEP 5, ETT 7.5/23 @ LIP, SATURATING WELL, NO S/S OF RESP DISTRESS. CURRENTLY ST ON THE MONITOR, HR 110'S. ON CVP MONITORING. CORE TEMP MONITOR IN PLACE WITH TEMP 100.7, COOLING BLANKET ON PATIENT. FLEXISEAL NOTED WITH GREEN LIQUID OUTPUT. BATES IN PLACE. RIGHT FEMORAL HD CATH IN PLACE. RIGHT IJ TLC FLUSHED AND PATENT, NO S/S OF INFILTRATION/INFECTION, DRESSING CDI. BED LOW AND LOCKED, SIDERAILS UP, BED ALARM ON. WILL MONITOR
[2017-06-14] VITALS (54 sets, daily range): BP systolic 93–153; BP diastolic 54–104
[2017-06-14] MEDS: NEOMY SULF/BACITRAC ZN/POLY 15 GM TUBE TP SCH ×2 (03:02→16:41)
[2017-06-14] MEDS: MIDAZOLAM HCL 100 MG in IV NS 0.9% 80 ML IV PRN ×2 (03:02→18:14)
[2017-06-14] MEDS: ALBUTEROL FS 2.5 MG/0.5 ML VIAL.NEB NEB SCH ×6 (03:47→23:22)
[2017-06-14] MEDS: IPRATROPIUM NEB FS 0.5 MG/2.5 ML AMPUL.NEB NEB SCH ×6 (03:47→23:22)
[2017-06-14 05:08] LABS: CALCIUM, SERUM 6.5 mg/dL (8.5-10.1); POTASSIUM 4.7 mmol/L (3.5-5.1)
[2017-06-14] MEDS: IV NS 0.9% 250 ML IV PRN (05:08)
[2017-06-14] MEDS: IV NS 0.9% 500 ML IV PRN (05:08)
[2017-06-14 05:10] LABS: CREATININE 9.3 mg/dL (0.6-1.3)
--- NOTE | 2017-06-14 06:10 | NUR ---
RN CLOSING NOTES PT REMAINS STABLE OF THE MOMENT. ALL DUE MEDS GIVEN, AM CARE PROVIDED. WILL ENDORSE NÉSTOR TO AM RN
--- NOTE | 2017-06-14 07:05 | NUR ---
RN INITIAL NOTES RECEIVED PT INTUBATED, ON VENT. NO RESPIRATORY DISTRESS NOTED. NO SOB NOTED. NO SIGNS OF PAIN NOTED. RIJ TLC IN PLACE. ON VERSED AT 7MG/HR AND FENTANYL AT 80MCG/HR. OG IN PLACE. TOLERATING GTF WELL. FC IN PLACE. NO HEMATURIA NOTED. FLEXISEAL IN PLACE. BLE ELEVATED. PT COMFORTABLE. WILL MONITOR.
--- NOTE | 2017-06-14 07:23 | NUR ---
RT PATIENT REC'D ORALLY INTUBATED ON [facility] VENT WITH SETTINGS SET BY MD MAUDE OLEARY. VENT ALARMS CHECKED + AUDIBLE. CUFF PRESSURE CHECKED FORM GRADER. SX'D WITH SMALL/MOD AMT PALE SEMITHICK SECRETIONS. B/S DIMINISHED. AMBU BAG AT HOB Addendum: 06/14/17 at 1215 by CHRISTINE LOPZE RT Amended: Links added.
[2017-06-14] MEDS: SEVELAMER CARBONATE 0.8 GM POWD.PACK GT SCH ×3 (08:13→17:06)
[2017-06-14] MEDS: LACTOBACILLUS RHAMNOSUS GG 1 EACH CAP.SPRINK PO SCH ×2 (08:13→17:06)
[2017-06-14 08:22] LABS: BASOPHILS % (AUTO) 0.2 % (0.0-2.0); EOSINOPHILS % (AUTO) 3.4 % (0.0-6.0); HEMATOCRIT 25 % (39-51); HEMOGLOBIN 8.7 g/dL (13.5-17.5); LYMPHOCYTES # (AUTO) 0.6 /CMM (0.8-4.8); LYMPHOCYTES % (AUTO) 4.5 % (20.0-44.0); MEAN CORPUSCULAR HEMOGLOBIN 29 PG (26.0-33.0); MEAN CORPUSCULAR HGB CONC 35 g/dl (31.0-36.0); MEAN CORPUSCULAR VOLUME 82 fL (80-96); MONOCYTES # (AUTO) 0.4 /CMM (0.1-1.30); MONOCYTES % (AUTO) 3.2 % (2.0-12.0); NEUTROPHILS # (AUTO) 11.7 /CMM (1.8-8.9); NEUTROPHILS % (AUTO) 88.7 % (43.0-81.0); PLATELET COUNT (AUTO) 663 /CMM (150-450); RDW COEFFICIENT OF VARIATION 14.8 (11.5-15.0); RED BLOOD CELL COUNT(AUTO) 3.05 MIL/uL (4.5-6.0); WHITE BLOOD COUNT (AUTO) 13.2 K/uL (4.3-11.0)
--- NOTE | 2017-06-14 09:30 | NUR ---
RN NOTES SEEN AND EXAMINED BY DR. KERN. PT REMAINS INTUBATED, ON VENT. NO RESPIRATORY DISTRESS NOTED. NO SOB NOTED. PT ON VERSED AND FENTANYL DRIP. PT ON SEDATION VACATION. PT WITHDRAWS TO PAIN. UNABLE TO OPEN EYES SPONTANEOUSLY. WILL CONTINUE TO MONITOR.
[2017-06-14] MEDS: MEROPENEM 500 MG in IV NS 0.9% 50 ML IV SCH (10:07)
[2017-06-14] MEDS: FENTANYL CITRATE IV 1,250 MCG in IV NS 0.9% 225 ML IV PRN (11:11)
--- NOTE | 2017-06-14 13:00 | NUR ---
RN NOTES HD STARTED. NO RESPIRATORY DISTRESS NOTED. NO SOB NOTED. NO SIGNS OF PIN NOTED. WILL CONTINUE TO MONITOR.
--- NOTE | 2017-06-14 15:15 | NUR ---
RN NOTES HD DONE. REMOVED 2L. TOLERATED PROCEDURE WELL. NO RESPIRATORY DISTRESS NOTED. NO SOB NOTED. VS STABLE. WILL MONITOR.
[2017-06-14] MEDS: NEPRO 1,000 ML BOTTLE GT SCH (16:24)
--- NOTE | 2017-06-14 19:00 | NUR ---
RN INITIAL NOTES RECEIVED THE PATIENT SEDATED ON BED WITH VERSED @ 5MG/HR AND FENTANYL @ 80MCG/HR. INTUBATED AND ON VENT WITH SETTINGS AC 30, TV 550, FIO2 40%, PEEP 5, ETT 7.5/23 @ LIP, SATURATING WELL, NO S/S OF RESP DISTRESS. CURRENTLY ST ON THE MONITOR, HR 110'S. ON CVP MONITORING. CORE TEMP MONITOR IN PLACE WITH TEMP 100.5, COOLING BLANKET ON PATIENT. FLEXISEAL NOTED WITH GREEN LIQUID OUTPUT. BATES IN PLACE. RIGHT FEMORAL HD CATH IN PLACE. RIGHT IJ TLC FLUSHED AND PATENT, NO S/S OF INFILTRATION/INFECTION, DRESSING CDI. BED LOW AND LOCKED, SIDERAILS UP, BED ALARM ON. WILL MONITOR
--- NOTE | 2017-06-14 19:00 | NUR ---
RN CLOSING NOTES NO SIGNIFICANT CHANGE NOTED. REMAINS INTUBATED, ON VENT. NO RESPIRATORY DISTRESS NOTED. NO SOB NOTED. STILL ON FENTANYL AND VERSED DRIP. OG IN PLACE. TOLERATING GTF WELL. FC IN PLACE. RECTAL TUBE IN PLACE. KEPT CLEAN AND DRY. REPOSITIONED Q2. KEPT COMFORTABLE. WILL ENDORSE FOR CONTINUITY OF CARE.
--- NOTE | 2017-06-14 20:08 | NUR ---
PT RECEIVED INTUBATED 7.5 ETT SECURED AT 24CM AT THE LIP. NO RESP DISTRESS. TOLERATING VENT SETTINGS. SX'D FOR SML AMT OF THICK WHITE SECRETIONS. VENT ALARMS SET AND AUDIBLE. AMBU BAG AT BEDSIDE. VENT PLUGGED INTO RED OUTLET. WILL CONTINUE TO MONITOR. Addendum: 06/14/17 at 2010 by BARAK COBOS RT Amended: Links added.
[2017-06-15] VITALS (59 sets, daily range): BP systolic 117–150; BP diastolic 61–100
[2017-06-15] MEDS: FENTANYL CITRATE IV 1,250 MCG in IV NS 0.9% 225 ML IV PRN ×2 (01:12→16:49)
[2017-06-15] MEDS: ALBUTEROL FS 2.5 MG/0.5 ML VIAL.NEB NEB SCH ×6 (03:23→23:45)
[2017-06-15] MEDS: IPRATROPIUM NEB FS 0.5 MG/2.5 ML AMPUL.NEB NEB SCH ×6 (03:23→23:45)
[2017-06-15] MEDS: IV NS 0.9% 250 ML IV PRN (03:53)
[2017-06-15] MEDS: IV NS 0.9% 500 ML IV PRN (03:53)
[2017-06-15] MEDS: NEOMY SULF/BACITRAC ZN/POLY 15 GM TUBE TP SCH ×2 (03:55→16:35)
[2017-06-15 05:21] LABS: CALCIUM, SERUM 7.3 mg/dL (8.5-10.1); CREATININE 7.3 mg/dL (0.6-1.3)
--- NOTE | 2017-06-15 06:20 | NUR ---
RN CLOSING NOTES PT REMAINS STABLE OF THE MOMENT. ALL DUE MEDS GIVEN, AM CARE PROVIDED. WILL ENDORSE NÉSTOR TO AM RN
[2017-06-15] MEDS: SEVELAMER CARBONATE 0.8 GM POWD.PACK GT SCH ×3 (08:57→16:34)
[2017-06-15] MEDS: LACTOBACILLUS RHAMNOSUS GG 1 EACH CAP.SPRINK PO SCH ×2 (08:57→16:34)
[2017-06-15] MEDS: MEROPENEM 500 MG in IV NS 0.9% 50 ML IV SCH (09:00)
--- NOTE | 2017-06-15 11:30 | NUR ---
TEMP 101.3 COOLING MEASURES INITIATED.
[2017-06-15] MEDS: MIDAZOLAM HCL 100 MG in IV NS 0.9% 80 ML IV PRN (11:31)
[2017-06-15] MEDS: ACETAMINOPHEN 650 MG/20.3 ML UDC NG PRN (11:35)
--- NOTE | 2017-06-15 13:48 | NUR ---
CAROLE followed up with [place] persons and spoke with Officer Giovanni to follow up regarding pt. and if they found a match. Officer Giovanni informed SW that they would have called SW if they had a match. CAROLE once again asked if pt. can be fingerprinted by them. Sweat Box Attendant Giovanni informed SW their policy is that they can fingerprint only if the pt. is identified as a missing persons by [employer].
--- NOTE | 2017-06-15 17:57 | NUR ---
RT END OF THE SHIFT REPORT, PT. 48 Y OLD MALE REMAIN ORALLY INTUBATED ETT # 7.5 @ 23 CM LIP LINE AND SECURED. ON THE VENT WITH NOTED SETTINGS. (AC,30,550,40%+5) PT. REMAIN STABLE. VENT ALARMS ARE SET AND AUDIBLE WITH AMBU BAG AT THE BEDSIDE. DIRECT MAIL CLERK CUFF PRESSURE NOTED. VENT IS PLUGGED INTO RED OUTLET. HME CHANGED. B/S BILATERALLY RALES EQUAL CHEST RISE NOTED. SX FOR MODERATE THICK YELLOW SECRETIONS. NO RESPIRATORY DISTRESS NOTED T/O SHIFT, WILL CONTINUE TO MONITOR. REPORT WILL BE PASS TO PM SHIFT. Addendum: 06/15/17 at 1759 by BEBETO SEGUNDO RT Amended: Links added.
--- NOTE | 2017-06-15 19:29 | NUR ---
SPUT, WOUND, URINE, STOOL SENT.
--- NOTE | 2017-06-15 19:30 | NUR ---
RN NOTES RECEIVED PATIENT SEDATED ON BED WITH VERSED @ 7MG/HR AND FENTANYL @ 80MCG/HR. INTUBATED WITH VENT SETTINGS AC 30, TV 550, FIO2 40%, PEEP 5, ETT 7.5/23 @ LIP, SATURATING WELL, NO ACUTE RESP DISTRESS. ST REVEALS ON TELE MONITOR, HR 100'S. ON CVP MONITORING CALIBRATED AND LABELLED, CORE TEMP 100.5 DEG FAHRENHEIT, COOLING BLANKET OFF AT THIS TIME. HAS FLEXISEAL WITH BROWNISH LIQUID OUTPUT. F/C IN PLACE. RIGHT FEMORAL HD CATH IN PLACE. RIGHT IJ TLC INTACT AND PATENT, NO S/S OF INFILTRATION/INFECTION, DRESSING CDI. BED LOW AND LOCKED, SIDE RAILS UP, BED ALARM ON. WILL CLOSELY MONITOR.
--- NOTE | 2017-06-15 20:08 | NUR ---
PT RECEIVED INTUBATED 7.5 ETT SECURED AT 24CM AT THE LIP. NO RESP DISTRESS. TOLERATING VENT SETTINGS. SX'D FOR SML AMT OF THICK WHITE SECRETIONS. VENT ALARMS SET AND AUDIBLE. AMBU BAG AT BEDSIDE. VENT PLUGGED INTO RED OUTLET. WILL CONTINUE TO MONITOR. Addendum: 06/15/17 at 2009 by BARAK COBOS RT Amended: Links added.
[2017-06-15] MEDS: NEPRO 1,000 ML BOTTLE GT SCH (23:19)
[2017-06-16] VITALS (42 sets, daily range): BP systolic 97–161; BP diastolic 59–99
[2017-06-16] MEDS: MIDAZOLAM HCL 100 MG in IV NS 0.9% 80 ML IV PRN ×3 (01:17→17:03)
[2017-06-16] MEDS: ALBUTEROL FS 2.5 MG/0.5 ML VIAL.NEB NEB SCH ×7 (03:46→23:50)
[2017-06-16] MEDS: IPRATROPIUM NEB FS 0.5 MG/2.5 ML AMPUL.NEB NEB SCH ×6 (03:46→23:50)
[2017-06-16] MEDS: LORAZEPAM INJ 2 MG/ML VIAL IV PRN ×5 (04:07→22:01)
[2017-06-16] MEDS: NEOMY SULF/BACITRAC ZN/POLY 15 GM TUBE TP SCH ×2 (04:12→16:40)
[2017-06-16 04:21] LABS: BASOPHILS % (AUTO) 0.4 % (0.0-2.0); EOSINOPHILS % (AUTO) 3.6 % (0.0-6.0); HEMATOCRIT 25 % (39-51); HEMOGLOBIN 8.6 g/dL (13.5-17.5); LYMPHOCYTES % (AUTO) 17.1 % (20.0-44.0); MEAN CORPUSCULAR HEMOGLOBIN 29 PG (26.0-33.0); MEAN CORPUSCULAR HGB CONC 35 g/dl (31.0-36.0); MEAN CORPUSCULAR VOLUME 83 fL (80-96); MONOCYTES # (AUTO) 1.1 /CMM (0.1-1.30); NEUTROPHILS # (AUTO) 8.2 /CMM (1.8-8.9); NEUTROPHILS % (AUTO) 69.9 % (43.0-81.0); PLATELET COUNT (AUTO) 704 /CMM (150-450); RED BLOOD CELL COUNT(AUTO) 2.97 MIL/uL (4.5-6.0); WHITE BLOOD COUNT (AUTO) 11.7 K/uL (4.3-11.0)
[2017-06-16 04:49] LABS: CALCIUM, SERUM 7.5 mg/dL (8.5-10.1); MAGNESIUM 2.5 mg/dL (1.8-2.4); POTASSIUM 3.8 mmol/L (3.5-5.1)
[2017-06-16 05:14] LABS: CREATININE 7.6 mg/dL (0.6-1.3)
[2017-06-16 05:15] LABS: PHOSPHORUS 9.2 mg/dL (2.5-4.9)
--- NOTE | 2017-06-16 07:00 | NUR ---
FIBER GLASS WORKER- Initial Note Received pt orally intubated & sedated. Pt intubated ETT 7.5, 23 cm @ the lip. Respirations even and unlabored, no SOB or distress present. Bedside monitor reveals Sinus Tachycardia. OGT present and running Nephrovite @ 50 ml/hr. Velasquez catheter draining to gravity. RIJ TLC running Fentanyl @ 80 mcg/min, Versed @ 7 mg/hr and NS @ TKO. Bilateral soft wrist restraints in place. Will continue to monitor.
--- NOTE | 2017-06-16 07:15 | NUR ---
RN NOTES PT REMAINED IN STABLE CONDITION, CALM AND COOPERATIVE AT THIS TIME. CONTINUE ON VERSED AND FENTANYL DRIPS TITRATED ORDERED. CVP LABELLED AND CALIBRATED. NO SIGNIFICANT CHANGES. ENDORSED CONTINUITY OF CARE TO AM NURSE,.
--- NOTE | 2017-06-16 07:40 | NUR ---
RT PATIENT REC'D ORALLY INTUBATED ON [facility] VENT WITH SETTINGS SET BY MD MAUDE OLEARY. VENT ALARMS CHECKED + AUDIBLE. CUFF PRESSURE CHECKED BONE PULLER. SX'D WITH SMALL/MOD AMT PALE SEMITHICK SECRETIONS. B/S DIMINISHED. AMBU BAG AT HOB Addendum: 06/16/17 at 1359 by CHRISTINE LOPEZ RT Amended: Links added.
[2017-06-16] MEDS: FENTANYL CITRATE IV 1,250 MCG in IV NS 0.9% 225 ML IV PRN ×2 (08:01→20:57)
[2017-06-16] MEDS: SEVELAMER CARBONATE 0.8 GM POWD.PACK GT SCH ×3 (08:11→17:12)
[2017-06-16] MEDS: LACTOBACILLUS RHAMNOSUS GG 1 EACH CAP.SPRINK PO SCH ×2 (08:11→17:13)
[2017-06-16] MEDS: ACETAMINOPHEN 650 MG/20.3 ML UDC NG PRN ×2 (08:31→18:07)
--- NOTE | 2017-06-16 09:30 | NUR ---
COLLECTION SYSTEMS FOREMAN- Pt noted of core temp of 102. Tylenol 650 mg already given. Cooling measures provided, cooling blanket in place. Will continue to monitor.
[2017-06-16] MEDS: MEROPENEM 500 MG in IV NS 0.9% 50 ML IV SCH (09:50)
[2017-06-16] MEDS: IV NS 0.9% 250 ML IV PRN (09:53)
--- NOTE | 2017-06-16 11:00 | NUR ---
AUTOMOBILE TIRE BUILDER- HD started. HD nurse at bedside. 1300- HD completed. 2 L was removed. Pt tolerated procedure well. Vital signs stable. Will continue to monitor.
[2017-06-16] MEDS ORDERED: SEVELAMER CARBONATE 0.8 GM POWD.PACK GT SCH (13:00)
--- NOTE | 2017-06-16 13:55 | NUR ---
RT PER DR KERN DAILY ABG CANCELLED
[2017-06-16] MEDS ORDERED: VANCOMYCIN 1 GM in IV D5W 250 ML IV ONE (15:00)
--- NOTE | 2017-06-16 15:52 | NUR ---
CAROLE called Missing persons and spoke to Detective Mccarthy requesting any updates. Detective Mccarthy requested for CAROLE to send a picture of the pt. so she can match it to any missing persons and [employer] portal. CAROLE took a picture of the pt. and sent it to detective Mccarthy at [email or web address]. Detective Mccarthy confirmed with CAROLE that she did receive the photo and will follow up with CAROLE tomorrow.
--- NOTE | 2017-06-16 19:27 | NUR ---
PT RECEIVED ORALLY INTUBATED 7.0 ETT SECURED AT 23 CM AT THE LIP. PT TOLERATING VENT SETTINGS. BREATHING TX GIVEN PER MD'S ORDERED. NO ADVERSE REACTION NOTED. NO RESP DISTRESS NOTED AT THIS TIME. SX'D SMALLL AMT OF WHITE THICK SECRETIONS WITH BLOOD TINGED. VENT ALARMS SET AND AUDIBLE. AMBU BAG AT BEDSIDE. ETT CUFF CASE PREPARER AND LINER. VENT PLUGGED INTO RED OUTLET. WILL CONTINUE TO MONITOR. Addendum: 06/16/17 at 2318 by ARIANNE JUNIOR RT PT RECEIVED ORALLY INTUBATED 7.5 ETT SECURED AT 23 CM AT THE LIP
[2017-06-16] MEDS: FLUCONAZOLE (100 MG) 100 MG TABLET PO SCH (21:09)
--- NOTE | 2017-06-16 23:00 | NUR ---
TALENT REP - REC'D PT. ON FENTANYL GTT. AT 100 MCG/HR & VERSED GTT. AT 9 MG/HR. BOTH GTTS ON MAIL RIDER PUMPS. PT. CONT. TO REMAIN RESTLESS & THRASHING HIS HEAD BACK & FORTH. PT. DOES NOT RESPOND TO VERBAL COMMANDS. ATIVAN 2 MG SLOW IVP ADM. FOR AGITATION. CVP RANGE: 5-13 MM/HG. BILAT. SOFT WRIST RESTRAINTS ARE ON DUE TO SAFETY PROTOCOL. HEART MONITOR SHOWS ST/LOW 100'S-TEENS. SBP'S ARE WNL. RHONCHI AUSC. TO ALL LOBES. VENT SETTINGS ARE AC-30, TV-550,40%, PEEP 5. OGT HAS GOOD PLACEMENT W/NEPRO INFUSING AT 50CC/HR. FLEXISEAL & BATES CATH TO GRAVITY. RT. TLC HAS ALL PORTS INFUSING WELL. 2+ EDEMA X 4 EXT. PT'S TEMP HAS BEEN A PROBLEM SINCE SOS. PT'S TMAX AT 20:00 WAS 102.5. COOLING BLANKET ON PT. ICE PACKS ON PT. FAN ON IN RM. TYLENOL 650MG/OGT ADM. CONT. POC.
[2017-06-17] VITALS (47 sets, daily range): BP systolic 104–165; BP diastolic 31–98
[2017-06-17] MEDS: LORAZEPAM INJ 2 MG/ML VIAL IV PRN ×6 (00:26→22:32)
--- NOTE | 2017-06-17 01:00 | NUR ---
EXCHANGE SPECIALIST - PT. REMAINS RESTLESS. 2ND ATIVAN 2MG IVP WAS ADM. AT 00:30 AM. GARCIA CULTURES WERE DONE DUE TO PT. TEMP STILL AT 102.0 F. COOLING MEASURES CONT. POC.
[2017-06-17 01:31] LABS: APPEARANCE,URINE CLEAR (CLEAR); BILIRUBIN,URINE NEGATIVE (NEGATIVE); BLOOD, URINE 3+ Ery/uL (NEGATIVE); COLOR,URINE YELLOW (YELLOW); KETONES,URINE NEGATIVE (NEGATIVE); LEUKOCYTE ESTERASE ,URINE NEGATIVE (NEGATIVE); NITRITE, URINE NEGATIVE (NEGATIVE); PROTEIN,URINE 1+ mg/dl (NEGATIVE); UGLUCOSE NEGATIVE (NEGATIVE); UROBILINOGEN,URINE 0.2 EU/dL (0.2)
[2017-06-17] MEDS: MIDAZOLAM HCL 100 MG in IV NS 0.9% 80 ML IV PRN ×3 (01:33→18:34)
[2017-06-17 01:39] LABS: RBC,URINE 21-50 /HPF (0-2)
[2017-06-17 01:40] LABS: BACTERIA,URINE Few /HPF (None Seen); SQUAMOUS EPITHELIAL CELL,UR Rare /HPF (None Seen)
[2017-06-17 01:41] LABS: YEAST,URINE Moderate /HPF (None Seen)
[2017-06-17] MEDS: NEOMY SULF/BACITRAC ZN/POLY 15 GM TUBE TP SCH ×2 (03:20→16:29)
[2017-06-17] MEDS: IPRATROPIUM NEB FS 0.5 MG/2.5 ML AMPUL.NEB NEB SCH ×6 (03:21→22:49)
[2017-06-17] MEDS: ALBUTEROL FS 2.5 MG/0.5 ML VIAL.NEB NEB SCH ×6 (03:21→22:49)
[2017-06-17 04:36] LABS: HEMATOCRIT 23 % (39-51); HEMOGLOBIN 7.9 g/dL (13.5-17.5); MEAN CORPUSCULAR HEMOGLOBIN 29 PG (26.0-33.0); MEAN CORPUSCULAR HGB CONC 35 g/dl (31.0-36.0); MEAN CORPUSCULAR VOLUME 83 fL (80-96); PLATELET COUNT (AUTO) 508 /CMM (150-450); RDW COEFFICIENT OF VARIATION 13.9 (11.5-15.0); RED BLOOD CELL COUNT(AUTO) 2.76 MIL/uL (4.5-6.0)
[2017-06-17 04:48] LABS: CALCIUM, SERUM 7.4 mg/dL (8.5-10.1); CREATININE 5.4 mg/dL (0.6-1.3); MAGNESIUM 2.2 mg/dL (1.8-2.4); PHOSPHORUS 6.6 mg/dL (2.5-4.9); POTASSIUM 3.3 mmol/L (3.5-5.1)
[2017-06-17 05:26] LABS: LYMPHOCYTES % (MANUAL) 30 % (16-48); MONOCYTES % (MANUAL) 24 % (0-11.0); NEUTROPHILS % (MANUAL) 42 (42-76)
[2017-06-17 05:27] LABS: EOSINOPHILS % (MANUAL) 4 % (0-4)
[2017-06-17] MEDS: NEPRO 1,000 ML BOTTLE GT SCH (05:39)
--- NOTE | 2017-06-17 06:00 | NUR ---
PHARMACY STOCK CLERK - PT'S CORE TEMP IS NOW AT 100.9 F. COOLING MEASURES CONT. PT. IS NOW RESTING W/EYES CLOSED. 1200CC TOTAL FOR 12HR. SHIFT. CVP STAYED BETWEEN 5-13 MMHG. WILL ENDORSE REPORT TO DANNY RN. CONT. POC.
--- NOTE | 2017-06-17 07:05 | NUR ---
MANAGER GYN- Initial Note Received pt orally intubated & sedated. Pt intubated ETT 7.5, 23 cm @ the lip. Respirations even and unlabored, no SOB or distress present. Pt calm and resting in bed at this time. Bedside monitor reveals Sinus Tachycardia. OGT present and running Nephro @ 50 ml/hr. Velasquez catheter draining to gravity. RIJ TLC running Fentanyl @ 100 mcg/hr, Versed @ 9 mg/hr and NS @ TKO. Bilateral soft wrist restraints in place. Will continue to monitor.
[2017-06-17] MEDS: FENTANYL CITRATE IV 1,250 MCG in IV NS 0.9% 225 ML IV PRN ×2 (08:53→18:38)
[2017-06-17] MEDS: LACTOBACILLUS RHAMNOSUS GG 1 EACH CAP.SPRINK PO SCH ×2 (08:56→17:03)
[2017-06-17] MEDS: ACETAMINOPHEN 650 MG/20.3 ML UDC NG PRN ×3 (08:56→23:33)
[2017-06-17] MEDS: SEVELAMER CARBONATE 0.8 GM POWD.PACK GT SCH ×3 (08:56→17:03)
[2017-06-17] MEDS: POTASSIUM CL. PREMIX PERIPHER. 50 ML IV SCH ×2 (09:00→10:00)
--- NOTE | 2017-06-17 09:00 | NUR ---
0900- HD started. HD nurse at bedside. 1200- HD completed. 1.5L removed. HD catheter removed by HD nurse. Catheter tip sent to lab. Will continue to monitor.
[2017-06-17] MEDS: MEROPENEM 500 MG in IV NS 0.9% 50 ML IV SCH (09:16)
--- NOTE | 2017-06-17 09:30 | NUR ---
PLASTIC EYE TECHNICIAN- Dr. Chawla at bedside. Updated md on pt's condition. Per md, contact Dr. Dolan to have HD catheter removed due to pt's intermittent fevers.
--- NOTE | 2017-06-17 09:50 | NUR ---
[phone] Paged Dr. Dolan. [phone]- Dr. Dolan returned paged. Informed md Dr. Chawla recommended to have HD catheter removed due to frequent fevers. Per Dr. Dolan, have HD catheter removed today after pt's dialysis and culture tip. Md aware dialysis currently taking place right now. Also informed md pt's primary md ordered 4 bags of Potassium this am for K level of 3.3 (pt currently receiving dialysis right now). Per Dr. Ching, d/c order of Potassium. 1000- HD nurse at bedside. Aware HD cath needs to be removed after HD today.
--- NOTE | 2017-06-17 16:15 | NUR ---
TANK TRUCK LOADER- Pt noted with core temp of 102. Cooling blanket applied. Cultures ordered & sent. Will continue to monitor.
--- NOTE | 2017-06-17 17:23 | NUR ---
Received intubated pt on mechanical vent. Pt tolerated current vent settings well. No changes were made. Vent is plugged into a red outlet, alarms are set and audible, and BVM is at bedside. Addendum: 06/17/17 at 1724 by NITHIN SALGADO RT Amended: Links added.
--- NOTE | 2017-06-17 17:30 | NUR ---
NURSING INFORMATION SYSTEMS COORDINATOREdilson VALENTIN at bedside. Pt currently restless & agitated. Informed PA pt had a temp of 102 about an hour ago. HOMERO aware pt needs new HD catheter. Per HOMERO, she will return tomorrow morning and re-evaluate pt's status. Miscellaneous order placed to obtain consent for HD catheter by two mds. Charge nurse aware. Will continue to monitor.
--- NOTE | 2017-06-17 19:25 | NUR ---
PT RECEIVED ORALLY INTUBATED 7.5 ETT SECURED AT 23 CM AT THE LIP WITH NOTED SETTINGS. PT TOLERATING VENT SETTINGS. BREATHING TX GIVEN PER MD'S ORDERED. NO ADVERSE REACTION NOTED. NO RESP DISTRESS NOTED AT THIS TIME. SX'D SMALLL AMT OF RAYO THICK SECRETIONS WITH BLOOD TINGED. VENT ALARMS SET AND AUDIBLE. AMBU BAG AT BEDSIDE. ETT CUFF METAL CONTROL COORDINATOR. VENT PLUGGED INTO RED OUTLET. WILL CONTINUE TO MONITOR.
[2017-06-17] MEDS: FLUCONAZOLE (100 MG) 100 MG TABLET PO SCH (19:37)
--- NOTE | 2017-06-17 20:00 | NUR ---
LADLE PULLER - NOTES - Received pt orally intubated & sedated. Pt intubated ETT 7.5, 23 cm @ the lip. Respirations even and unlabored, no SOB or distress present. Pt calm and resting in bed at this time. Bedside monitor reveals Sinus rhythm hr 90s. OGT present and running Nephro @ 50 ml/hr, 0 residuals, tolerating well. Velasquez catheter draining to gravity. RIJ TLC running Fentanyl @ 100 mcg/hr, Versed @ 16 mg/hr and NS @ TKO. Bilateral soft wrist restraints in place. Will continue to monitor.
--- NOTE | 2017-06-17 20:30 | NUR ---
versed @ 16 mg/hr based on max dose order 0.2 mg/kg/hr, pt weighs approx 81 kg x 0.2 = 16 mg/hr. Verified with Pharmacist paty Hilton to run versed @ 16 mg/hr
[2017-06-18] VITALS (49 sets, daily range): BP systolic 100–158; BP diastolic 56–95
[2017-06-18] MEDS: MIDAZOLAM HCL 100 MG in IV NS 0.9% 80 ML IV PRN ×4 (01:30→20:40)
[2017-06-18] MEDS: IPRATROPIUM NEB FS 0.5 MG/2.5 ML AMPUL.NEB NEB SCH ×6 (03:31→23:43)
[2017-06-18] MEDS: ALBUTEROL FS 2.5 MG/0.5 ML VIAL.NEB NEB SCH ×7 (03:31→23:43)
[2017-06-18] MEDS: NEOMY SULF/BACITRAC ZN/POLY 15 GM TUBE TP SCH ×2 (04:18→16:16)
[2017-06-18 05:03] LABS: CALCIUM, SERUM 7.8 mg/dL (8.5-10.1); CREATININE 3.6 mg/dL (0.6-1.3); MAGNESIUM 2.1 mg/dL (1.8-2.4); PHOSPHORUS 4.8 mg/dL (2.5-4.9); POTASSIUM 2.9 mmol/L (3.5-5.1)
[2017-06-18 05:14] LABS: BASOPHILS % (AUTO) 1.1 % (0.0-2.0); EOSINOPHILS % (AUTO) 5.4 % (0.0-6.0); HEMATOCRIT 22 % (39-51); HEMOGLOBIN 7.4 g/dL (13.5-17.5); LYMPHOCYTES # (AUTO) 1.1 /CMM (0.8-4.8); LYMPHOCYTES % (AUTO) 31.9 % (20.0-44.0); MEAN CORPUSCULAR HEMOGLOBIN 28 PG (26.0-33.0); MEAN CORPUSCULAR HGB CONC 34 g/dl (31.0-36.0); MEAN CORPUSCULAR VOLUME 84 fL (80-96); MONOCYTES # (AUTO) 0.8 /CMM (0.1-1.30); MONOCYTES % (AUTO) 22.9 % (2.0-12.0); NEUTROPHILS # (AUTO) 1.4 /CMM (1.8-8.9); NEUTROPHILS % (AUTO) 38.7 % (43.0-81.0); PLATELET COUNT (AUTO) 377 /CMM (150-450); RDW COEFFICIENT OF VARIATION 13.9 (11.5-15.0); RED BLOOD CELL COUNT(AUTO) 2.63 MIL/uL (4.5-6.0); WHITE BLOOD COUNT (AUTO) 3.6 K/uL (4.3-11.0)
[2017-06-18] MEDS: FENTANYL CITRATE IV 1,250 MCG in IV NS 0.9% 225 ML IV PRN ×2 (06:03→18:36)
[2017-06-18 06:05] LABS: BAND % (MANUAL) 4 % (0.0-5.0); EOSINOPHILS % (MANUAL) 6 % (0-4); LYMPHOCYTES % (MANUAL) 24 % (16-48); MONOCYTES % (MANUAL) 20 % (0-11.0); NEUTROPHILS % (MANUAL) 45 (42-76); REACTIVE LYMPHOCYTES 1 % (0-0)
[2017-06-18] MEDS: NEPRO 1,000 ML BOTTLE GT SCH (06:20)
[2017-06-18] MEDS: LORAZEPAM INJ 2 MG/ML VIAL IV PRN ×5 (08:13→23:50)
[2017-06-18] MEDS: SEVELAMER CARBONATE 0.8 GM POWD.PACK GT SCH ×4 (08:15→18:00)
[2017-06-18] MEDS: LACTOBACILLUS RHAMNOSUS GG 1 EACH CAP.SPRINK PO SCH ×3 (08:15→17:00)
--- NOTE | 2017-06-18 08:25 | NUR ---
WOUND CARE CONSULT: PT SEEN FOR DEEP TISSUE INJURY TO LEFT BUTTOCK WHICH IS INTACT. PT NOTED TO HAVE GENERALIZED EDEMA. PT RESTLESS AT TIMES AND NOTED TO RUB HIS HEAD AND BUTTOCKS ON BED. PT ON MARGY ISOFLEX LOW AIRLOSS BED. WOUND CARE RECOMMENDATIONS AND SKIN PROTECTION RECOMMENDATIONS DISCUSSED WITH NURSING STAFF. ALL SKIN PROTECTION AND PRESSURE PREVENTION ULCER MEASURES IN PLACE. PT FOLLOWED BY SURGICAL TEAM FOR THIGH AND HAND WOUNDS. WILL SEE PRN. DEGROOT IN AGREEMENT WITH PLAN OF CARE. Addendum: 06/18/17 at 0828 by VIJAY KIMBROUGH WNDNU Amended: Links added.
[2017-06-18] MEDS: MEROPENEM 500 MG in IV NS 0.9% 50 ML IV SCH (09:53)
[2017-06-18] MEDS ORDERED: POTASSIUM CHLORIDE 20 MEQ TAB.PRT.SR PO ONE (10:30)
[2017-06-18] MEDS ORDERED: POTASSIUM CHLORIDE 20 MEQ POWDER PACKET GT ONE (11:00)
[2017-06-18] MEDS: ACETAMINOPHEN 650 MG/20.3 ML UDC NG PRN (11:57)
--- NOTE | 2017-06-18 14:00 | NUR ---
RN NOTE LEFT FEMORAL HD CATHETER PLACED BY DR SILVA. TOLERATED WELL. WILL MONITOR PT.
--- NOTE | 2017-06-18 14:26 | NUR ---
SW called Missing persons and spoke to Detective Mccarthy to follow up regarding pt's photo that was sent to her. Detective Mccarthy informed SW that they have no match in the missing persons that fits pt's image. She informed SW she will call SW if they have any updates.
--- NOTE | 2017-06-18 16:00 | NUR ---
RN NOTE VERSED IS INCREASED TO 20MG/H PER DR KERN, PT IS AGITATED. MOVES IN BED, CONSTANTLY TURNS HIS HEAD. WILL MONITOR.
--- NOTE | 2017-06-18 19:00 | NUR ---
RN NOTE PT ORAL TUBE APPEARS TO BE OUT OF STOMACH UPON AUSCULTATION AND ASPIRATING OF STOMACH CONTENT, FEEDING STOPPED AT 1815, [id number] MEDS WERE NOT GIVEN BECAUSE OF THAT. WILL FOLLOW UP WITH CHEST XRAY.
--- NOTE | 2017-06-18 19:36 | NUR ---
PT RECEIVED ORALLY INTUBATED 7.5 ETT SECURED AT 23 CM AT THE LIP WITH NOTED SETTINGS.PT TOLERATING VENT SETTINGS. BREATHING TX GIVEN PER MD'S ORDERED. NO ADVERSE REACTION NOTED. NO RESP DISTRESS NOTED AT THIS TIME. SX'D SMALLL AMT OF YELLOW THICK SECRETIONS. VENT ALARMS SET AND AUDIBLE. AMBU BAG AT BEDSIDE. ETT CUFF LAPPER. VENT PLUGGED INTO RED OUTLET. WILL CONTINUE TO MONITOR.
--- NOTE | 2017-06-18 20:10 | NUR ---
RN NOTES RECEIVED PT WITH ETT 7.5 AT 23 CM @ LIP LINE. SATING 98% CONNECTED TO VENT WITH SETTING OF AC 30 TV 550 FIO2 40% PEEP 5. SUCTIONED WITH MODERATE AMT. OF WHITISH SECRETION. PICC LINE NURSE AT BEDSIDE, LUIS TLC PLACED WITH GOOD BLOOD RETURN, NO ACTIVE BLEEDING. CXR DONE TO CONFIRM IV SITE ON THE RIGHT PLACE. RIGHT INTERNAL JUGULAR TLC KEPT IN PLACED BUT NO BLOOD RETURN PRESENT. FENTANYL @ 100 MCG/HR AND VERSED 20 MG/HR WILL TITRATE ORDER/ F/C DRAINED VIA GRAVITY, FLEXISEAL INTACT. PT TEMP IS 100.5 AT THIS TIME. COOLING BLANKET KEPT ON. REPOSITIONED PT COMFORTABLE AND FOR SKIN MANAGEMENT. WILL CONTINUE TO MONITOR.
[2017-06-18] MEDS ORDERED: MICAFUNGIN SODIUM 100 MG in IV NS 0.9% 100 ML IV SCH (21:00)
--- NOTE | 2017-06-18 22:00 | NUR ---
RN NOTES DR. CHOUDHURY FROM RADIOLOGY CALLED AND INFORMED REGARDING OGT WAS IN A MIDCHEST. ADVANCED TUBE AND AUSCULTATED, PATENCY AND PLACEMENT CHECK ED CHECKED BY OTHER NURSE [facility] DIRECT SUPPORT PROFESSIONAL IN PLACED. CONTINEU OGT ORDERED WITH NO RESIDUAL WILL CONTINUE TO CHECKED.
[2017-06-18] MEDS: ACETAMINOPHEN 650 MG/SUPP.RECT RC PRN (23:49)
[2017-06-19] VITALS (33 sets, daily range): BP systolic 101–153; BP diastolic 51–97
[2017-06-19] MEDS: MIDAZOLAM HCL 100 MG in IV NS 0.9% 80 ML IV PRN ×5 (01:48→23:58)
[2017-06-19] MEDS: IPRATROPIUM NEB FS 0.5 MG/2.5 ML AMPUL.NEB NEB SCH ×6 (03:39→23:13)
[2017-06-19] MEDS: ALBUTEROL FS 2.5 MG/0.5 ML VIAL.NEB NEB SCH ×6 (03:40→23:14)
[2017-06-19 05:08] LABS: CALCIUM, SERUM 8.3 mg/dL (8.5-10.1); CREATININE 3.3 mg/dL (0.6-1.3); POTASSIUM 3.2 mmol/L (3.5-5.1)
[2017-06-19] MEDS: LORAZEPAM INJ 2 MG/ML VIAL IV PRN ×7 (05:44→23:43)
[2017-06-19] MEDS: NEOMY SULF/BACITRAC ZN/POLY 15 GM TUBE TP SCH ×2 (05:47→16:36)
[2017-06-19] MEDS: IV NS 0.9% 500 ML IV PRN (06:50)
[2017-06-19] MEDS: FENTANYL CITRATE IV 1,250 MCG in IV NS 0.9% 225 ML IV PRN ×2 (06:52→23:59)
[2017-06-19] MEDS: NEPRO 1,000 ML BOTTLE GT SCH (06:54)
--- NOTE | 2017-06-19 07:00 | NUR ---
RN NOTES PT NOT FOLLOWING COMMAND MOVE HIS HEAD MORE OFTEN. BREATHING EVEN AND UNLABORED ETT AND VENT SETTING TOLERATED WELL SATING 100%. IV ON RIJ REMOVED INTACT AND TOLERATED WELL. PT ON VERSED AND FENTANYL DRIP TITRATED PT TOLERATED. PT STILL NEEDS ATIVAN NEEDED TO FOLLOW UP DUE TO KEEP MOVING ON BED AGGRESSIVELY. EFFECTIVE AFTER 30 MINUTES. KEPT PT CLEAN AND COMFORTABLE IN BED. ENDORSED CONTINUITY O F CARE TO AM NURSE.
--- NOTE | 2017-06-19 07:05 | NUR ---
RN INITIAL NOTES RECEIVED PT EYES OPEN, AGITATED. UNABLE TO FOLLOW COMMANDS. PT INTUBATED, ON VENT. NO RESPIRATORY DISTRESS NOTED. OG IN PLACE. ON GTF. WILL MONITOR FOR RESIDUAL. LUIS PICC LINE IN PLACE. PT ON VERSED AT 20MG/HR AND FENTANYL AT 100MCG/HR. LEFT FEMORAL HD CATH IN PLACE. FC IN PLACE. NO HEMATURIA NOTED. FLEXISEAL IN PLACE. REPOSITIONED. BLE ELEVATED. WILL CONTINUE TO MONITOR.
[2017-06-19] MEDS: SEVELAMER CARBONATE 0.8 GM POWD.PACK GT SCH ×3 (08:25→17:06)
[2017-06-19] MEDS: LACTOBACILLUS RHAMNOSUS GG 1 EACH CAP.SPRINK PO SCH ×2 (08:25→16:35)
[2017-06-19] MEDS: MEROPENEM 500 MG in IV NS 0.9% 50 ML IV SCH (09:11)
--- NOTE | 2017-06-19 14:00 | NUR ---
RN NOTES SEEN AND EXAMINED BY DR. DUENAS. AWARE OF CURRENT LAB VALUES: WBC 3.6, HGB 7.4, HCT 22, PLATELET 377. SODIUM 146, CREA 3.2, BUN 74, CREA 3.3. ALSO AWARE CXR RESULT. PT REMAINS ON VERSED AND FENTANYL DRIP. WILL DO PAIN CONSULT PER DR. DUENAS. WILL CONTINUE TO MONITOR.
[2017-06-19] MEDS ORDERED: VANCOMYCIN 1 GM in IV D5W 250 ML IV ONE (15:30)
--- NOTE | 2017-06-19 17:00 | NUR ---
RN NOTES HD STARTED. VITAL SIGNS STABLE. NO RESPIRATORY DISTRESS NOTED. WILL MONITOR.
--- NOTE | 2017-06-19 18:20 | NUR ---
RT END OF THE SHIFT REPORT, PT. 48 Y OLD MALE REMAIN ORALLY INTUBATED ETT # 7.5 @ 23 CM LIP LINE AND SECURED. ON THE VENT WITH NOTED SETTINGS. (AC,30,550,40%+5) PT. REMAIN STABLE. TX'S GIVEN INLINE VENT ALARMS ARE SET AND AUDIBLE WITH AMBU BAG AT THE BEDSIDE. CARRIER ASSOCIATE CUFF PRESSURE NOTED. VENT IS PLUGGED INTO RED OUTLET. HME CHANGED. B/S BILATERALLY RALES EQUAL CHEST RISE NOTED. SX FOR MODERATE THICK YELLOW SECRETIONS. NO RESPIRATORY DISTRESS NOTED T/O SHIFT, WILL CONTINUE TO MONITOR. Addendum: 06/21/17 at 1809 by BEBETO SEGUNDO RT Amended: Links added.
--- NOTE | 2017-06-19 19:00 | NUR ---
RN NOTES HD DONE. REMOVED 2L. TOLERATED WELL. NO RESPIRATORY DISTRESS NOTED. NO SOB NOTED. NO SIGNS OF PAIN NOTED. VS STABLE
--- NOTE | 2017-06-19 19:20 | NUR ---
SANDWICH BOARD CARRIER OPENING NOTES RECEIVED REPORT FROM NOEL LUA. PATIENT OBTUNDED BUT RESPONSIVE TO TACTILE STIMULI. BREATHING EVEN & UNLABORED W/ ETT INTACT & SETTINGS AC30, TV550,FIO2 40%, PEEP 5. ON TELE MONITOR W/ SINUS RHYTHM, HR 90S. CURRENT CVP 8 & POSITIONAL. NO S/S OF RESPIRATORY OR CARDIAC DISTRESS. RIGHT UPPER ARM PICC LINE & LEFT FEMORAL HD CATH INTACT & PATENT W/ DRESSING CDI. FENTANYL DRIP INFUSING WELL @ 20 ML/HR & VERSED DRIP @ 20 ML/HR. G-TUBE IN PLACE & FLUSHING WELL W/ GTF NEPRO 1.8 @ 50 ML/HR. NO RESIDUAL @ THIS TIME. BATES CATH DRAINING CLEAR, YELLOW URINE & FLEXISEAL DRAINING BROWN, LIQUID STOOL. SAFETY MEASURES IN PLACE & BILATERAL SOFT WRIST RESTRAINTS APPLIED. HOB ELEVATED FOR ASPIRATION PRECAUTIONS. WILL CONTINUE TO MONITOR CLOSELY.
[2017-06-19] MEDS: ACETAMINOPHEN 650 MG/20.3 ML UDC NG PRN (22:14)
[2017-06-20] VITALS (61 sets, daily range): BP systolic 29–140; BP diastolic 16–91
[2017-06-20] MEDS: MIDAZOLAM HCL 100 MG in IV NS 0.9% 80 ML IV PRN ×5 (02:01→22:13)
[2017-06-20] MEDS: IV NS 0.9% 250 ML IV PRN (02:16)
[2017-06-20] MEDS: ALBUTEROL FS 2.5 MG/0.5 ML VIAL.NEB NEB SCH ×6 (03:16→23:44)
[2017-06-20] MEDS: IPRATROPIUM NEB FS 0.5 MG/2.5 ML AMPUL.NEB NEB SCH ×6 (03:16→23:44)
[2017-06-20] MEDS: NEPRO 1,000 ML BOTTLE GT SCH (03:33)
[2017-06-20] MEDS: LORAZEPAM INJ 2 MG/ML VIAL IV PRN ×5 (03:35→13:18)
[2017-06-20] MEDS: NEOMY SULF/BACITRAC ZN/POLY 15 GM TUBE TP SCH ×2 (03:46→17:11)
[2017-06-20 05:00] LABS: BASOPHILS # (AUTO) 0.1 /CMM (0.0-0.2); BASOPHILS % (AUTO) 1.9 % (0.0-2.0); EOSINOPHILS % (AUTO) 8.6 % (0.0-6.0); LYMPHOCYTES # (AUTO) 1.1 /CMM (0.8-4.8); LYMPHOCYTES % (AUTO) 31.1 % (20.0-44.0); MEAN CORPUSCULAR HEMOGLOBIN 28 PG (26.0-33.0); MEAN CORPUSCULAR HGB CONC 34 g/dl (31.0-36.0); MEAN CORPUSCULAR VOLUME 85 fL (80-96); MONOCYTES # (AUTO) 1.2 /CMM (0.1-1.30); NEUTROPHILS # (AUTO) 0.8 /CMM (1.8-8.9); NEUTROPHILS % (AUTO) 22.4 % (43.0-81.0); PLATELET COUNT (AUTO) 284 /CMM (150-450); RDW COEFFICIENT OF VARIATION 13.6 (11.5-15.0); RED BLOOD CELL COUNT(AUTO) 2.36 MIL/uL (4.5-6.0); WHITE BLOOD COUNT (AUTO) 3.4 K/uL (4.3-11.0)
[2017-06-20 05:13] LABS: CALCIUM, SERUM 7.6 mg/dL (8.5-10.1); CREATININE 2.3 mg/dL (0.6-1.3)
[2017-06-20 05:18] LABS: HEMOGLOBIN 6.7 g/dL (13.5-17.5)
[2017-06-20 05:19] LABS: HEMATOCRIT 20 % (39-51)
[2017-06-20 05:31] LABS: EOSINOPHILS % (MANUAL) 6 % (0-4); LYMPHOCYTES % (MANUAL) 26 % (16-48); MONOCYTES % (MANUAL) 34 % (0-11.0); NEUTROPHILS % (MANUAL) 34 (42-76)
[2017-06-20] MEDS: ACETAMINOPHEN 650 MG/20.3 ML UDC NG PRN ×3 (05:50→17:11)
--- NOTE | 2017-06-20 07:30 | NUR ---
RECEIVED PATIENT EYES OPEN TO SOUND, NOT FOLLOWING COMMANDS BUT WILL FOLLOW MOVEMENT WITH EYES. VENT SETTINGS ORDERED AND TOLERATING WELL. ORAL CARE COMPLETED PATIENT MOUTH VERY DRY AND HAS EXCESS SECRETIONS; PRN SUCTIONING. BATES CATH IN PLACE DRAINING TO GRAVITY. FLEXI SEAL IN PLACE WITH 125ML NOTED IN COLLECTION BAG. PICC LUIS INTACT CLEAN DRY AND PATENT IVF TKO PER ORDER AND LEFT FEM HD CATH IN PLACE AND CLEAN AND DRY. PATIENT FEELS WARM TO TOUCH WILL MONITOR TEMP PATIENT HAS HX OF BEING FEBRILE. TOLERATING TUBE FEEDINGS NO RESIDUAL NOTED. ETT 7.07/07. SAFETY PRECAUTIONS IN PLACE, HOB ELEVATED/ASPIRATION PRECAUTIONS, WILL MONITOR. Addendum: 06/20/17 at 0900 by KOJO DURBIN RN FENT AND VERSED DRIPS RUNNING AT ORDERED MAXIMUM. TUBING AND BAGS UP TO DATE.
--- NOTE | 2017-06-20 08:00 | NUR ---
PT NOTED WITH TEMP 101.6. APPLIED COOLING BLANKET AND CORE TEMP MONITORING. PATIENT VERY AGITATED KICKING LEGS AND THRASHING HEAD GAVE PRN ATIVAN. PENDING DR CULVER CONSULT.
[2017-06-20] MEDS: LACTOBACILLUS RHAMNOSUS GG 1 EACH CAP.SPRINK PO SCH ×2 (08:17→17:12)
[2017-06-20] MEDS: FLUCONAZOLE (100 MG) 100 MG TABLET PO SCH (08:17)
[2017-06-20] MEDS: SEVELAMER CARBONATE 0.8 GM POWD.PACK GT SCH ×3 (08:17→17:12)
--- NOTE | 2017-06-20 08:30 | NUR ---
PATIENTS TEMP RAISES WHEN HE BECOMES AGITATED.
[2017-06-20] MEDS: MEROPENEM 500 MG in IV NS 0.9% 50 ML IV SCH (09:21)
[2017-06-20] MEDS: FENTANYL CITRATE IV 1,250 MCG in IV NS 0.9% 225 ML IV PRN ×2 (10:13→21:00)
--- NOTE | 2017-06-20 10:18 | NUR ---
FENT BAG REPLACED. RUNNING AT 100MCG/ HR PER PROTOCOL. SECOND TYPE AND SCREEN DRAWN FOR PRBC AWAITING FOR UNIT TO BE READY
--- NOTE | 2017-06-20 10:19 | NUR ---
PT IS CALM AT THIS TIME. TEMP 99.3 TRENDING DOWN
--- NOTE | 2017-06-20 11:12 | NUR ---
NOTIFIED DR DUENAS OF PT TEMP. PER OK TO GIVE PRBC. LAB JUST CALLED FOR WIRELESS SALES ASSOCIATE
--- NOTE | 2017-06-20 11:20 | NUR ---
PATIENT BECOMING AGITATED AGAIN. COMFORT MEASURES APPLIED. PRN ATIVAN.
--- NOTE | 2017-06-20 12:00 | NUR ---
DR FISCHER AT BEDSIDE. UPDATED ON PATIENT CONDITION, LABS, VS. DR MICHELLE AT BEDSIDE. UPDATED WELL. PER DR MICHELLE OK TO ORDER ABG FOR TOMORROW AM 06/21
--- NOTE | 2017-06-20 12:48 | NUR ---
PATIENT CALM. REPLACED CORE TEMP. MEASURING 99.5. ORAL TEMP 99.5 WELL. VERSED BAG CHANGED RUNNING PER PROTOCOL. PATIENT TOLERATING BLOOD TX NO ADVERSE REACTIONS AT THIS TIME
--- NOTE | 2017-06-20 13:25 | NUR ---
PATIENT BECOMING RESTLESS AND KICKING/THRASHING AGAIN. PRN ATIVAN. VS STABLE.
--- NOTE | 2017-06-20 14:27 | NUR ---
BLOOD TRANSFUSION COMPLETED. NO ADVERSE REACTIONS NOTED. PATIENT OGT CLOGGED. WILL ATTEMPT TO TROUBLE SHOOT. PATIENT CONTINUES TO HAVE TEMP 99.6-100.6 WILL GIVE PRN TYLENOL AND CONTINUE WITH COOLING BLANKET.
--- NOTE | 2017-06-20 14:30 | NUR ---
DR DUENAS AT BEDSIDE. UPDATED ON PATIENT CONDITION, VS, LABS.
--- NOTE | 2017-06-20 14:45 | NUR ---
AUTOMATIC BP CUFF NOT READING PATIENT BP. TOOK MANUAL 136/86
--- NOTE | 2017-06-20 15:06 | NUR ---
PER DR DUENAS FENT DRIP CAN BE INCREASED TO MAX OF 3MCG/KG/HR. VESSEL TRAFFIC OFFICER SPOKE WITH DR DUENAS AND UPDATED ORDER.
--- NOTE | 2017-06-20 15:45 | NUR ---
OGT CLOGGED UNABLE TO TROUBLE SHOOT. REPLACED WITH 16F 55CM MEGAN AT LIPS. 2 NURSE CONFIRMED PLACEMENT WITH RN ARACELY. PATIENT TOLERATED NO COMPLICATIONS NOTED
--- NOTE | 2017-06-20 16:29 | NUR ---
PT IS CALM AND COOPERATIVE AT THIS TIME. NO DISTRESS NOTED. OPENS EYES/ MOVES EXTREMITIES TO LIGHT TOUCH
--- NOTE | 2017-06-20 17:58 | NUR ---
HILDA AT BEDSIDE. UPDATED ON PATIENT CONDITION; FEBRILE TODAY. PER HILDA ORDER BLOOD CULTURE AGAIN NOT FROM PICC LINE.
--- NOTE | 2017-06-20 18:20 | NUR ---
RT END OF THE SHIFT REPORT, PT. 48 Y OLD MALE REMAIN ORALLY INTUBATED ETT # 7.5 @ 23 CM LIP LINE AND SECURED. ON THE VENT WITH NOTED SETTINGS. (AC,30,550,40%+5) PT. REMAIN STABLE. VENT ALARMS ARE SET AND AUDIBLE WITH AMBU BAG AT THE BEDSIDE. FILLER FEEDER CUFF PRESSURE NOTED. VENT IS PLUGGED INTO RED OUTLET. HME CHANGED. B/S BILATERALLY RALES EQUAL CHEST RISE NOTED. SX FOR MODERATE THICK YELLOW SECRETIONS. NO RESPIRATORY DISTRESS NOTED T/O SHIFT, WILL CONTINUE TO MONITOR. Addendum: 06/21/17 at 1809 by BEBETO SEGUNDO RT Amended: Links added.
--- NOTE | 2017-06-20 19:28 | NUR ---
CARE ENDORSED TO RN KARINA. PATIENT VS STABLE TEMPERATURE CONTROLLED. PRN COOLING BLANKET TODAY. FENT/VERSED DRIPS RUNNING ORDERED AND NOTED. IV SITE CLEAN DRY AND INTACT/PATENT. HD CATH CLEAN DRY INTACT. PATIENT CALM AND COOPERATIVE AT THIS TIME. BATES IN PLACE DRAINING TO GRAVITY. FLEXI SEAL INTACT AND PATENT
--- NOTE | 2017-06-20 19:30 | NUR ---
CONSUMER INSIGHT MANAGER INITIAL NOTES RECEIVED PATIENT IN BED, ASLEEP, EYES CLOSED. PATIENT ORALLY INTUBATED WITH ETT 7.5 AT 23 CM @ LIP LINE. CONNECTED TO VENT WITH SETTING OF AC 30 TV 550 FIO2 40% PEEP 5, TOLERATING WELL, FREE FROM ANY S/S OF RESPIRATORY DISTRESS. PATIENT ON FENTANYL DRIP, CURRENTLY INFUSING AT 125 MCG. ALSO ON VERSED DRIP, CURRENTLY AT 20. PATIENT CALM, SEDATED AT THIS TIME. FLEXISEAL PATENT AND INTACT, DRAINING LIQUID BROWN STOOL. BATES CATHETER PATENT AND INTACT, DRAINING BIPIN COLORED URINE TO GRAVITY. WILL CLOSELY MONITOR TEMPERATURE AND MAINTAIN SEDATION LEVEL. BED IN LOWEST AND LOCKED POSITION, SIDE RAILS UP X3.
[2017-06-21] VITALS (70 sets, daily range): BP systolic 90–134; BP diastolic 59–87
[2017-06-21] MEDS: MIDAZOLAM HCL 100 MG in IV NS 0.9% 80 ML IV PRN ×5 (03:12→23:28)
[2017-06-21] MEDS: NEPRO 1,000 ML BOTTLE GT SCH (03:27)
[2017-06-21] MEDS: LORAZEPAM INJ 2 MG/ML VIAL IV PRN ×3 (03:48→13:06)
--- NOTE | 2017-06-21 04:00 | NUR ---
RESIDENTIAL PEST CONTROL TECHNICIAN NOTES PATIENT AGITATED WHILE ON FENTANYL DRIP AND VERSED DRIP. ATTEMPTED TO REORIENT PATIENT. PATIENT NODDING WHEN ASKED IF HE IS UNDERSTANDING WHAT I AM SAYING. PATIENT ABLE TO NOD APPROPRIATELY, BUT DOES NOT FOLLOW COMMANDS, CONTINUES TO BE RESTLESS/AGITATED. CHARGE NURSE MEENAKSHI MADE AWARE. PRN ATIVAN ADMINISTERED. WILL CONTINUE TO CLOSELY MONITOR
[2017-06-21] MEDS: NEOMY SULF/BACITRAC ZN/POLY 15 GM TUBE TP SCH ×2 (04:04→17:25)
[2017-06-21] MEDS: IPRATROPIUM NEB FS 0.5 MG/2.5 ML AMPUL.NEB NEB SCH ×6 (04:29→23:17)
[2017-06-21] MEDS: ALBUTEROL FS 2.5 MG/0.5 ML VIAL.NEB NEB SCH ×6 (04:29→23:17)
[2017-06-21] MEDS ORDERED: ACETAMINOPHEN 650 MG/SUPP.RECT RC ONE (04:40)
[2017-06-21] MEDS: ACETAMINOPHEN 650 MG/SUPP.RECT RC PRN (04:42)
[2017-06-21 04:45] LABS: BASOPHILS # (AUTO) 0.2 /CMM (0.0-0.2); BASOPHILS % (AUTO) 2.9 % (0.0-2.0); EOSINOPHILS % (AUTO) 9.4 % (0.0-6.0); HEMATOCRIT 21 % (39-51); LYMPHOCYTES # (AUTO) 1.4 /CMM (0.8-4.8); LYMPHOCYTES % (AUTO) 22.9 % (20.0-44.0); MEAN CORPUSCULAR HEMOGLOBIN 29 PG (26.0-33.0); MEAN CORPUSCULAR HGB CONC 34 g/dl (31.0-36.0); MEAN CORPUSCULAR VOLUME 86 fL (80-96); MONOCYTES # (AUTO) 1.4 /CMM (0.1-1.30); MONOCYTES % (AUTO) 23.7 % (2.0-12.0); NEUTROPHILS # (AUTO) 2.4 /CMM (1.8-8.9); NEUTROPHILS % (AUTO) 41.1 % (43.0-81.0); PLATELET COUNT (AUTO) 309 /CMM (150-450); RDW COEFFICIENT OF VARIATION 13.3 (11.5-15.0); RED BLOOD CELL COUNT(AUTO) 2.41 MIL/uL (4.5-6.0); WHITE BLOOD COUNT (AUTO) 5.9 K/uL (4.3-11.0)
[2017-06-21] MEDS: ACETAMINOPHEN 650 MG/20.3 ML UDC NG PRN ×2 (05:02→17:24)
[2017-06-21 05:03] LABS: CALCIUM, SERUM 8.1 mg/dL (8.5-10.1); CREATININE 2.4 mg/dL (0.6-1.3); MAGNESIUM 1.9 mg/dL (1.8-2.4); PHOSPHORUS 4.1 mg/dL (2.5-4.9); POTASSIUM 3.2 mmol/L (3.5-5.1)
[2017-06-21 05:07] LABS: EOSINOPHILS % (MANUAL) 6 % (0-4); LYMPHOCYTES % (MANUAL) 25 % (16-48); MONOCYTES % (MANUAL) 18 % (0-11.0); NEUTROPHILS % (MANUAL) 51 (42-76)
--- NOTE | 2017-06-21 05:24 | NUR ---
PT REC'D ORALLY INTUBATED SZ 7.5 SECURED @ 23CM AT THE LIP. NO RESP DISTRESS NOTED. SX'D THICK MOD AMT OF YELLOW SECRETIONS. ALARMS ARE SET AND AUDIBLE. VENT PLUGGED INTO RED OUTLET, WILL CONTINUE TO MONITOR. Addendum: 06/21/17 at 0547 by LULÚ MITCHELL RT Amended: Links added.
[2017-06-21] MEDS: FENTANYL CITRATE IV 1,250 MCG in IV NS 0.9% 225 ML IV PRN ×3 (06:21→21:08)
--- NOTE | 2017-06-21 06:45 | NUR ---
RAGMAN NOTES FENTANYL DRIP TITRATED DOWN, WILL CONTINUE TO CLOSELY MONITOR LEVEL OF SEDATION
--- NOTE | 2017-06-21 07:00 | NUR ---
BUS SYSTEM OPERATOR NOTES PATIENT NOW RESTING IN BED, EYES CLOSED, APPEARS COMFORTABLE/SEDATED WHILE ON FENTANYL DRIP @ 150 AND VERSED DRIP @ 20. WILL ENDORSE THE PATIENT TO THE AM SHIFT NURSE FOR NÉSTOR
--- NOTE | 2017-06-21 07:23 | NUR ---
RECEIVED PATIENT EYES OPEN TO LIGHT TOUCH NOT FOLLOWING COMMANDS HOWEVER WILL NOD TO QUESTIONS ASKED OF HIM AT TIMES. PATIENT IS CALM AND PROPERLY SEDATED AT THIS TIME. WILL MONITOR FOR AGITATION. VENT SETTINGS ORDERED AND TOLERATING WELL. ORAL CARE COMPLETED PATIENT MOUTH VERY DRY AND HAS EXCESS SECRETIONS; PRN SUCTIONING. BATES CATH IN PLACE DRAINING TO GRAVITY. FLEXI SEAL IN PLACE WITH NEW BAG NOTED. PICC LUIS INTACT CLEAN DRY AND PATENT IVF TKO PER ORDER AND LEFT FEM HD CATH IN PLACE AND CLEAN AND DRY. PATIENT FEELS WARM TO TOUCH WILL MONITOR TEMP PATIENT HAS HX OF BEING FEBRILE. TOLERATING TUBE FEEDINGS NO RESIDUAL NOTED. ETT 7.5. FENT DRIP RUNNING AT 125MCG (25ML/HR) AND VERSED AT MAX OF 20MG/HR (20 ML/HR) SAFETY PRECAUTIONS IN PLACE, HOB ELEVATED/ASPIRATION PRECAUTIONS, WILL MONITOR.
[2017-06-21] MEDS: Z GUARD REMEDY 2 OZ OINT TP PRN ×2 (08:18→17:25)
--- NOTE | 2017-06-21 08:43 | NUR ---
HD RUNNING FOR ABOUT 30 MIN AND PER RN BILL HD CATH MALFUNCTIONING AND UNABLE TO COMPLETE HD. NOTIFIED DR SILVA AND STATES HE WILL BE BY AROUND NOON TODAY.
--- NOTE | 2017-06-21 08:45 | NUR ---
SPOKE WITH PHARMACY NOTIFIED WE ARE [facility]
[2017-06-21] MEDS: LACTOBACILLUS RHAMNOSUS GG 1 EACH CAP.SPRINK PO SCH ×2 (08:47→17:25)
[2017-06-21] MEDS: FLUCONAZOLE (100 MG) 100 MG TABLET PO SCH (08:49)
--- NOTE | 2017-06-21 09:00 | NUR ---
DR KERN AT BEDSIDE. UPDATED ON PATIENT LABS, VS. AND THAT PATIENT MORE ALERT YESTERDAY AND TODAY BUT STILL VERY AGITATED/THRASHING AT TIMES AND DOES NOT FOLLOW COMMANDS/REQUESTS BUT WILL TRACK WITH EYES MOVEMENT. PER DR KERN PLAN IS TO HAVE TRACH/PEG. HE SPOKE WITH DR SILVA AND PLAN IS FOR WEDNESDAY FOR TRACH. PATIENT CALM AT THIS TIME. VS STABLE.
--- NOTE | 2017-06-21 09:30 | NUR ---
DR ESTRELLA AT BEDSIDE. UPDATED ON PATIENT CONDITION, LABS AND THAT HD CATH MALFUNCTIONING AND HD ONLY COMPLETED FOR 45 MINUTES WITH NO OUTPUT. PER DR ESTRELLA SHE WILL LOOK TO SEE IF PT NEEDS ANOTHER HD TODAY.
[2017-06-21] MEDS ORDERED: POTASSIUM CHLORIDE 20 MEQ POWDER PACKET GT ONE (10:00)
--- NOTE | 2017-06-21 10:00 | NUR ---
CONFIRMED WITH DR DELORES ESPARZA TO GIVE K REPLACEMENT
[2017-06-21] MEDS: MEROPENEM 500 MG in IV NS 0.9% 50 ML IV SCH (10:16)
[2017-06-21] MEDS: IV NS 0.9% 250 ML IV PRN (10:22)
[2017-06-21] MEDS: SEVELAMER CARBONATE 0.8 GM POWD.PACK GT SCH ×3 (10:31→17:25)
--- NOTE | 2017-06-21 11:17 | NUR ---
OK TO DC PRBC PER DR DUENAS. NO TRANSFUSION TODAY
--- NOTE | 2017-06-21 12:45 | NUR ---
DR SILVA AT BEDSIDE FOR NEW HD CATH PLACEMENT. PATIENT SEVERELY AGITATED PER MD GIVE STAT 6MG MORPHINE IVP AND ORDERED PRN ATIVAN IVP.
[2017-06-21] MEDS ORDERED: MORPHINE SULFATE INJ 4 MG/ML DISP.SYRIN ONE (12:54)
[2017-06-21] MEDS ORDERED: MORPHINE SULFATE INJ 4 MG/ML DISP.SYRIN IV STA (13:03)
[2017-06-21] MEDS ORDERED: MORPHINE SULFATE INJ 4 MG/ML DISP.SYRIN IM STA (13:04)
--- NOTE | 2017-06-21 13:15 | NUR ---
PATIENT TOLERATED HD CATH PLACEMENT. SEDATED. NO S/S AGITATION OR PAIN. VS STABLE.
--- NOTE | 2017-06-21 18:04 | NUR ---
RT END OF THE SHIFT REPORT, POST CONTINUES CARE FOR 3 DAYS PT. 48 Y OLD MALE REMAIN ORALLY INTUBATED ETT # 7.5 @ 23 CM LIP LINE AND SECURED. ON THE VENT WITH NOTED SETTINGS. (AC,30,550,40%+5) PT. REMAIN STABLE. SEDATED AND AWAKE SOMETIMES. VENT ALARMS ARE SET AND AUDIBLE WITH AMBU BAG AT THE BEDSIDE. DIRECTOR PRISON CUFF PRESSURE NOTED. VENT IS PLUGGED INTO RED OUTLET. HME CHANGED. B/S BILATERALLY RALES EQUAL CHEST RISE NOTED. SX FOR MODERATE THICK YELLOW SECRETIONS. NO RESPIRATORY DISTRESS NOTED T/O SHIFT, TX'S GIVEN INLINE AND NO ADVERSE REACTION NOTED. WILL CONTINUE TO MONITOR. REPORT IS POST CONTINUES CARE FOR 3 AM SHIFT/DAYS REPORT WILL BE PASS TO PM SHIFT. Addendum: 06/21/17 at 1809 by BEBETO SEGUNDO RT Amended: Links added.
--- NOTE | 2017-06-21 18:52 | NUR ---
CARE ENDORSED TO RN NIC. STEVENS AT BEDSIDE UPDATED ON PATIENT USUAL TEMPS OF 99.5-101. PATIENT IS ON COOLING BLANKET AT THIS TIME. TEMP 100.0. FENT/VERSED DRIPS RUNNING ORDERED AND NOTED. IV SITE CLEAN DRY AND INTACT/PATENT. HD CATH CLEAN DRY INTACT ON RIGHT NECK. LEFT FEM HD CATH INTACT AWAITING HD RN TO REMOVE 06/22. PATIENT CALM AND COOPERATIVE AT THIS TIME EYES OPEN TO LIGHT TOUCH. BATES IN PLACE DRAINING TO GRAVITY. FLEXI SEAL INTACT AND PATENT.
--- NOTE | 2017-06-21 19:30 | NUR ---
ELECTRONICS TECH INITIAL NOTES RECEIVED PATIENT IN BED, ASLEEP, EYES CLOSED. PATIENT ORALLY INTUBATED WITH ETT 7.5 AT 23 CM @ LIP. CONNECTED TO VENT WITH SETTING OF AC 30 TV 550 FIO2 40% PEEP 5, TOLERATING WELL, FREE FROM ANY S/S OF RESPIRATORY DISTRESS. PATIENT ON FENTANYL DRIP, CURRENTLY INFUSING AT 175 MCG. ALSO ON VERSED DRIP, CURRENTLY AT 20. PATIENT CALM, SEDATED AT THIS TIME. FLEXISEAL PATENT AND INTACT, DRAINING LIQUID BROWN STOOL. BATES CATHETER PATENT AND INTACT, DRAINING BIPIN COLORED URINE TO GRAVITY. WILL CLOSELY MONITOR TEMPERATURE AND MAINTAIN SEDATION LEVEL. BED IN LOWEST AND LOCKED POSITION, SIDE RAILS UP X3.
[2017-06-21] MEDS: MEROPENEM 1 G in IV NS 0.9% 100 ML IV SCH (20:33)
[2017-06-22] VITALS (61 sets, daily range): BP systolic 96–144; BP diastolic 53–121
[2017-06-22] MEDS: ACETAMINOPHEN 650 MG/20.3 ML UDC NG PRN ×3 (00:22→18:47)
--- NOTE | 2017-06-22 00:30 | NUR ---
SALES ACCOUNT EXECUTIVE NOTES AFTER BED BATH WITH COOL WATER RENDERED, PATIENT'S TEMPERATURE INCREASED TO 100.8 WHILE COOLING BLANKET WAS IN PLACE, TYLENOL ADMINISTERED ORDERED. WILL CONTINUE TO CLOSELY MONITOR
[2017-06-22] MEDS: NEPRO 1,000 ML BOTTLE GT SCH (02:25)
[2017-06-22] MEDS: IPRATROPIUM NEB FS 0.5 MG/2.5 ML AMPUL.NEB NEB SCH ×5 (04:14→20:15)
[2017-06-22] MEDS: ALBUTEROL FS 2.5 MG/0.5 ML VIAL.NEB NEB SCH ×5 (04:14→20:15)
[2017-06-22] MEDS: FENTANYL CITRATE IV 1,250 MCG in IV NS 0.9% 225 ML IV PRN ×4 (04:38→23:12)
[2017-06-22] MEDS: MIDAZOLAM HCL 100 MG in IV NS 0.9% 80 ML IV PRN ×5 (04:40→23:58)
[2017-06-22] MEDS: NEOMY SULF/BACITRAC ZN/POLY 15 GM TUBE TP SCH ×2 (04:43→17:08)
[2017-06-22 04:53] LABS: WHITE BLOOD COUNT (AUTO) 7.9 K/uL (4.3-11.0)
[2017-06-22 04:54] LABS: BASOPHILS # (AUTO) 0.1 /CMM (0.0-0.2); BASOPHILS % (AUTO) 1.5 % (0.0-2.0); EOSINOPHILS % (AUTO) 8.2 % (0.0-6.0); LYMPHOCYTES # (AUTO) 1.2 /CMM (0.8-4.8); LYMPHOCYTES % (AUTO) 15.4 % (20.0-44.0); MEAN CORPUSCULAR HEMOGLOBIN 29 PG (26.0-33.0); MEAN CORPUSCULAR HGB CONC 33 g/dl (31.0-36.0); MEAN CORPUSCULAR VOLUME 86 fL (80-96); MONOCYTES # (AUTO) 1.2 /CMM (0.1-1.30); MONOCYTES % (AUTO) 15.4 % (2.0-12.0); NEUTROPHILS # (AUTO) 4.7 /CMM (1.8-8.9); NEUTROPHILS % (AUTO) 59.5 % (43.0-81.0); PLATELET COUNT (AUTO) 302 /CMM (150-450); RDW COEFFICIENT OF VARIATION 14.1 (11.5-15.0); RED BLOOD CELL COUNT(AUTO) 2.12 MIL/uL (4.5-6.0)
[2017-06-22 05:15] LABS: CALCIUM, SERUM 8.3 mg/dL (8.5-10.1); CREATININE 2.1 mg/dL (0.6-1.3); MAGNESIUM 1.8 mg/dL (1.8-2.4); PHOSPHORUS 3.6 mg/dL (2.5-4.9); POTASSIUM 3.2 mmol/L (3.5-5.1)
[2017-06-22 05:18] LABS: HEMATOCRIT 18 % (39-51); HEMOGLOBIN 6.1 g/dL (13.5-17.5)
--- NOTE | 2017-06-22 05:20 | NUR ---
PT REC'D ORALLY INTUBATED WITH ETT 7.5 SECURED @ 23CM AT THE LIP. NO RESP DISTRESS NOTED. SX'D THICK MOD AMT OF YELLOW SECRETIONS. ALARMS ARE SET AND AUDIBLE. VENT PLUGGED INTO RED OUTLET, WILL CONTINUE TO MONITOR. Addendum: 06/22/17 at 0520 by CHRISTINA CARDENAS RT Amended: Links added.
[2017-06-22 06:01] LABS: LYMPHOCYTES % (MANUAL) 19 % (16-48); NEUTROPHILS % (MANUAL) 64 (42-76)
[2017-06-22 06:02] LABS: EOSINOPHILS % (MANUAL) 5 % (0-4); MONOCYTES % (MANUAL) 12 % (0-11.0)
--- NOTE | 2017-06-22 06:30 | NUR ---
CHINCHILLA MACHINE OPERATOR NOTES AM LABS SHOW H/H = 6.03/04. DIONI MADRID NP PAGED, AWAITING CALL BACK
--- NOTE | 2017-06-22 07:00 | NUR ---
COP WINDER CLOSING NOTES PATIENT IN BED, REPOSITIONED FOR COMFORT. CONTINUES ON FENTANYL DRIP @ 175MCG AND VERSED DRIP @ 20MCG. NO CALL BACK FROM DIONI NEW. WILL ENDORSE THE PATIENT TO THE AM SHIFT NURSE FOR CONTINUITY OF CARE.
--- NOTE | 2017-06-22 07:28 | NUR ---
RECEIVED PATIENT MORE ALERT AND AWAKE TODAY. TRACKING WITH EYES, FOLLOWS COMMANDS TO BLINK AND TO MAKE EYE CONTACT WHEN ASKED. CAN TELL ATTEMPTING TO SQUEEZE HANDS TODAY. PATIENT DOES RELAX LEGS WHEN TOLD TO. FC AND FLEXI SEAL IN PLACE PATENT AND CLEAN. LEFT HD FEM CATH IN PLACE PENDING REMOVAL. RIGHT NECK HD CATH IN PLACE AND CLEAN. PICC LINE IN PLACE AND PATENT/CLEAN WITH VERSED RUNNING 20MG/HR AND FENT 175MCG (35ML/HR). VENT SETTINGS ORDERED AND TOLERATING WELL. TUBE FEEDING RUNNING ORDERED AND TOLERATING WELL NO RESIDUAL NOTED. SAFETY PRECAUTIONS IN PLACE AND WILL ROUND PRN
--- NOTE | 2017-06-22 07:30 | NUR ---
NOTIFIED DR DUENAS OF PATIENT AM LABS; HGB 6.1. PER MD TRANSFUSE 2 UNITS WHEN PATIENT HAS HD. CONFIRMED WITH [facility] PATIENT IS GOING TO HAVE DIALYSIS THIS AM.
[2017-06-22] MEDS: SEVELAMER CARBONATE 0.8 GM POWD.PACK GT SCH ×3 (07:37→17:09)
[2017-06-22] MEDS: LORAZEPAM INJ 2 MG/ML VIAL IV PRN ×4 (07:37→21:38)
--- NOTE | 2017-06-22 08:30 | NUR ---
DR KERN AT BEDSIDE. UPDATED THAT PATIENT IS MORE ALERT TODAY AND SLIGHTLY MORE RESPONSIVE AND OBEYS COMMANDS TO BLINK, NODS Y/N AT TIMES TO QUESTIONS ASKED OF HIM. IE ASKED IF HE WAS IN PAIN NODDED NO. PER MD PENDING ABG TO SEE IF CAN TRY TO WEAN.
--- NOTE | 2017-06-22 08:45 | NUR ---
HD RN EDIS AT BEDSIDE. PATIENT CALM AND COOPERATIVE
[2017-06-22] MEDS ORDERED: POTASSIUM CHLORIDE 20 MEQ POWDER PACKET GT SCH (09:30)
--- NOTE | 2017-06-22 10:03 | NUR ---
HD RN EDIS TX 1ST UNIT OF PRBC. PATIENT VS STABLE. PER LAB PRBC ORDERED YESTERDAY WAS STILL ABLE TO BE USED. CANCELLED 2 UNITS ORDERED TODAY AND ORDERED 1 MORE UNIT PRBC TO TOTAL 2.
--- NOTE | 2017-06-22 10:44 | NUR ---
NON ADMIN K REPLACEMENT. HD PATIENT REPLACED WITH HD
--- NOTE | 2017-06-22 10:54 | NUR ---
HD COMPLETED. 1L OUT. PATIENT VS STABLE. NO COMPLICATIONS NOTED Addendum: 06/22/17 at 1610 by KOJO DURBIN RN HD CATH REMOVED BY EDIS KYLE RN. NO COMPLICATIONS. CATH TIP SENT FOR CULTURE PER HILDA
[2017-06-22] MEDS: MEROPENEM 1 G in IV NS 0.9% 100 ML IV SCH ×2 (10:56→20:26)
[2017-06-22] MEDS: LACTOBACILLUS RHAMNOSUS GG 1 EACH CAP.SPRINK PO SCH ×2 (10:57→17:09)
[2017-06-22] MEDS: FLUCONAZOLE (100 MG) 100 MG TABLET PO SCH (10:57)
[2017-06-22] MEDS ORDERED: EPOETIN ALFA (10,000 UNIT) 10,000 UNIT/ML VIAL SQ ONE (12:00)
[2017-06-22 12:18] LABS: ABG BASE EXCESS 3.7 mmol/L; ABG OXYGEN SATURATION 96.2 % (92.0-98.5); ABG PCO2 38.5 mmHg (35.0-45.0); ABG PH 7.472 (7.350-7.450); ABG PO2 89.5 mmHg (75.0-100.0); AaDO2 151.4 mmHg; COHb 0.3 % (0.5-1.5); MetHb 0.4 % (0.0-1.5); O2Hb 95.5 % (94.0-97.0); PEEP,BG 5 cm H2O; SITE, ABG Left Radial
--- NOTE | 2017-06-22 12:23 | NUR ---
PT BECOMES EXTREMELY AGITATED AND INDISTRACTABLE WITH CARE. PRN ATIVAN GIVEN DURING BED BATH.
--- NOTE | 2017-06-22 14:23 | NUR ---
per patient weight today of 76kg patient max dose rate is 228mcg/min or 45.6ml/hr. notified pharmacy to see if they can update patient weight as spreadsheet is stating different weight. patient calm and cooperative at this time.
--- NOTE | 2017-06-22 14:24 | NUR ---
lucero white at bedside. updated on patient skin on underarms having a fungal looking film the other day. at this time underarms are diamond cleaner and left with dryness around outer edge. per lucero she will order nystatin for underarms
[2017-06-22] MEDS: NYSTATIN TOP POWDER 15 GM BOTTLE TP SCH (14:56)
--- NOTE | 2017-06-22 16:10 | NUR ---
PATIENT REMAINS CALM AND COOPERATIVE AT THIS TIME. SAFETY PRECAUTIONS IN PLACE. AFEBRILE. 2ND PRBC RUNNING NO COMPLICATIONS NOTED
[2017-06-22 17:03] LABS: INR 1.12 (0.87-1.13)
[2017-06-22] MEDS: Z GUARD REMEDY 2 OZ OINT TP PRN (17:08)
--- NOTE | 2017-06-22 18:03 | NUR ---
RT END OF THE SHIFT REPORT, PT. 48 Y OLD MALE REMAIN ORALLY INTUBATED ETT # 7.5 @ 23 CM LIP LINE AND SECURED. ON THE VENT WITH NOTED SETTINGS. (AC,30,550,40%+5) PT. REMAIN STABLE. SEDATED AND AWAKE SOMETIMES. VENT ALARMS ARE SET AND AUDIBLE WITH AMBU BAG AT THE BEDSIDE. MANAGER OF DIGITAL CUFF PRESSURE NOTED. VENT IS PLUGGED INTO RED OUTLET. HME CHANGED. B/S BILATERALLY RALES EQUAL CHEST RISE NOTED. SX FOR MODERATE THICK YELLOW SECRETIONS. NO RESPIRATORY DISTRESS NOTED T/O SHIFT, TX'S GIVEN INLINE AND NO ADVERSE REACTION NOTED. WILL CONTINUE TO MONITOR. REPORT WILL BE PASS TO PM SHIFT. Addendum: 06/22/17 at 1803 by BEBETO SEGUNDO RT Amended: Links added.
--- NOTE | 2017-06-22 18:50 | NUR ---
CARE ENDORSED TO STONEY STEVENS AT BEDSIDE UPDATED ON PATIENT USUAL TEMPS OF 99.5-101. PATIENT IS ON COOLING BLANKET AT THIS TIME. TEMP 100.8 PRN TYLENOL. FENT/VERSED DRIPS RUNNING ORDERED AND NOTED. IV SITE CLEAN DRY AND INTACT/PATENT. HD CATH CLEAN DRY INTACT ON RIGHT NECK. LEFT FEM HD CATH DRESSING INTACT; NO BLEEDING NOTED. PATIENT CALM AND COOPERATIVE AT THIS TIME EYES OPEN TO LIGHT TOUCH. BATES IN PLACE DRAINING TO GRAVITY. FLEXI SEAL INTACT AND PATENT.
--- NOTE | 2017-06-22 19:30 | NUR ---
CUSTOMS BROKERAGE MANAGER INITIAL NOTES RECEIVED PATIENT IN BED, AWAKE, VERY AGITATED WHILE ON FENTANYL DRIP @ 228 MCG/HR AND VERSED DRIP @ 20MG/HR. ATIVAN 2MG IVP ADMINISTERED DUE TO CURRENT AGITATION LEVEL.ON TELEMETRY MONITORING SHOWS READING OF SINUS RHYTHM, HR = 99BPM. PATIENT ORALLY INTUBATED WITH ETT 7.5 AT 23 CM @ LIP. CONNECTED TO VENT WITH SETTING OF AC 30 TV 550 FIO2 40% PEEP 5, TOLERATING WELL, FREE FROM ANY S/S OF RESPIRATORY DISTRESS. FLEXISEAL PATENT AND INTACT, DRAINING LIQUID BROWN STOOL. BATES CATHETER PATENT AND INTACT, DRAINING BIPIN COLORED URINE TO GRAVITY. WILL CLOSELY MONITOR AND ATTEMPT TO REACH PROPER SEDATION LEVEL. BED IN LOWEST AND LOCKED POSITION, SIDE RAILS UP X3.
--- NOTE | 2017-06-22 21:45 | NUR ---
DRAWER IN HAND NOTES PATIENT REMAINS VERY AGITATED, ATIVAN 2MG IVP ADMINISTERED AGAIN. WILL MONITOR CLOSELY
[2017-06-23] VITALS (45 sets, daily range): BP systolic 86–137; BP diastolic 57–90
[2017-06-23] MEDS: ALBUTEROL FS 2.5 MG/0.5 ML VIAL.NEB NEB SCH ×7 (00:09→23:28)
[2017-06-23] MEDS: IPRATROPIUM NEB FS 0.5 MG/2.5 ML AMPUL.NEB NEB SCH ×7 (00:09→23:28)
--- NOTE | 2017-06-23 00:30 | NUR ---
TRANSCRIBER NOTES PATIENT WITH PERSISTENT FEVER, CORE TEMPERATURE CURRENTLY 102.2 DEGREES FAHRENHEIT. ICE BATH AND OTHER COOLING MEASURES RENDERED/INITIATED. WILL MONITOR CLOSELY
[2017-06-23] MEDS: ACETAMINOPHEN 650 MG/20.3 ML UDC NG PRN ×2 (01:02→16:02)
[2017-06-23] MEDS: LORAZEPAM INJ 2 MG/ML VIAL IV PRN ×8 (01:02→23:44)
[2017-06-23] MEDS: NYSTATIN TOP POWDER 15 GM BOTTLE TP SCH ×2 (01:03→13:15)
--- NOTE | 2017-06-23 04:00 | NUR ---
PERIODONTIST NOTES TUBE FEEDING PLACED ON HOLD, PATIENT FOR SURGERY/TRACH PLACEMENT LATER TODAY.
[2017-06-23] MEDS: MIDAZOLAM HCL 100 MG in IV NS 0.9% 80 ML IV PRN ×4 (04:25→21:00)
[2017-06-23] MEDS: FENTANYL CITRATE IV 1,250 MCG in IV NS 0.9% 225 ML IV PRN ×4 (04:26→21:38)
[2017-06-23] MEDS: NEOMY SULF/BACITRAC ZN/POLY 15 GM TUBE TP SCH ×2 (04:43→15:22)
[2017-06-23 04:50] LABS: BASOPHILS # (AUTO) 0.1 /CMM (0.0-0.2); BASOPHILS % (AUTO) 1.2 % (0.0-2.0); EOSINOPHILS % (AUTO) 5.1 % (0.0-6.0); HEMATOCRIT 25 % (39-51); HEMOGLOBIN 8.6 g/dL (13.5-17.5); LYMPHOCYTES # (AUTO) 0.9 /CMM (0.8-4.8); LYMPHOCYTES % (AUTO) 9.4 % (20.0-44.0); MEAN CORPUSCULAR HEMOGLOBIN 29 PG (26.0-33.0); MEAN CORPUSCULAR HGB CONC 34 g/dl (31.0-36.0); MEAN CORPUSCULAR VOLUME 84 fL (80-96); MONOCYTES # (AUTO) 1.2 /CMM (0.1-1.30); NEUTROPHILS # (AUTO) 7.3 /CMM (1.8-8.9); NEUTROPHILS % (AUTO) 72.3 % (43.0-81.0); PLATELET COUNT (AUTO) 300 /CMM (150-450); RDW COEFFICIENT OF VARIATION 15.1 (11.5-15.0); RED BLOOD CELL COUNT(AUTO) 3.01 MIL/uL (4.5-6.0); WHITE BLOOD COUNT (AUTO) 10.1 K/uL (4.3-11.0)
[2017-06-23 05:16] LABS: CALCIUM, SERUM 8.3 mg/dL (8.5-10.1); CREATININE 1.6 mg/dL (0.6-1.3)
[2017-06-23 05:24] LABS: POTASSIUM 2.7 mmol/L (3.5-5.1)
--- NOTE | 2017-06-23 05:46 | NUR ---
CRAFT CENTER DIRECTOR NOTES - POTASSIUM LEVEL RECEIVED CALL FROM LAB, SPOKE TO DEMETRIUS. CRITICAL LAB RESULT OF POTASSIUM 2.7. K LEVEL RELAYED TO DR DUVAL, WITH NEW ORDER TO REPLACE POTASSIUM WITH 40 mEq OF POTASSIUM CHLORIDE IV. ORDERS NOTED, FAXED TO SCREW MACHINE SETTER [facility]. WILL ADMINISTER WHEN DRUG IS AVAILABLE
--- NOTE | 2017-06-23 06:00 | NUR ---
RAND BUTTER NOTES 200 ML FREE WATER FLUSH VIA OGT HELD, PATIENT FOR SURGERY/TRACH PLACEMENT LATER TODAY
[2017-06-23] MEDS ORDERED: POTASSIUM CL. PREMIX PERIPHER. 200 ML ONE (06:17)
[2017-06-23] MEDS: POTASSIUM CL. PREMIX PERIPHER. 50 ML IV SCH ×4 (06:20→09:23)
--- NOTE | 2017-06-23 06:26 | NUR ---
pt received on vent settings and airway as charted. ambu bag at bedside alarms set and audible. vent plugged into red outlet. disconnect alarms checked. tolerating vent settings at this time. rr increased as settings per vent Addendum: 06/23/17 at 0627 by SABINO CAMPBELL RT Amended: Links added.
--- NOTE | 2017-06-23 07:00 | NUR ---
CRIME SCENE EVIDENCE TECHNICIAN NOTES PATIENT LAYING IN BED, APPEARS COMFORTABLE AT THIS TIME, SEDATED ON FENTANYL AND VERSED DRIPS, ATIVAN IVP ADMINISTERED AT 0600 FOR INCREASED AGITATION, EFFECTIVE. PATIENT FOR TRACH PLACEMENT LATER TODAY, TUBE FEEDING PLACED ON HOLD SINCE 0400. WILL ENDORSE THE PATIENT TO THE AM SHIFT NURSE FOR NÉSTOR.
[2017-06-23] MEDS: LACTOBACILLUS RHAMNOSUS GG 1 EACH CAP.SPRINK PO SCH ×3 (07:26→17:00)
[2017-06-23] MEDS: SEVELAMER CARBONATE 0.8 GM POWD.PACK GT SCH ×3 (07:26→16:41)
[2017-06-23] MEDS: FLUCONAZOLE (100 MG) 100 MG TABLET PO SCH (07:26)
--- NOTE | 2017-06-23 07:50 | NUR ---
PT RECEIVED ORALLY VENTILATED ON THE VENT. VENT SETTINGS ORDERED BY TOLERATED WELL. VENT ALARMS CHECKED AND AUDIBLE. ETT IN PROPER POSITION AND SECURED. CUFF CHECKED COMPOSITE BOND TECHNICIAN. BREATH SOUNDS DIM COARSE. SX'D WITH SMALL PALE SEMI THICK SECRETIONS. PT SEDATED, APPEARS COMFORTABLE. NO SOB AT THIS TIME. AMBU BAG AT HOB. CONTINUE CURRENT RESPIRATORY PLAN OF CARE. Addendum: 06/23/17 at 0814 by SUNITHA GALLEGOS RT Amended: Links added.
--- NOTE | 2017-06-23 08:17 | NUR ---
CELLULOSE INSULATION HELPER DF PT WITH ETT/AC VENT MODE. SEDATION WITH FENTANYL @ 228MCG/HR, VERSED GTT @ 20MG/HR. PT ADMIN PRN ATIVAN 2MG Q 2 HR PRN AGITATION LAST RECEIVED AT 0630. PT NPO SINCE 0400 PT TO HAVE TRACHEOSTOMY PLACEMENT AT 1400 TODAY, CONSENT SIGNED, PRE OP CHECK LIST COMPLETED. PT POTASSIUM IN AM OF 2.7 POC PT TO RECEIVE KCL 40 MEQ IV. PT WITH TEMP OF 99.5 TO 100.5 CURRENTLY ON COOLING MEASURES WITH GOAL FOR A TEMP 98.5. VSS. NAD NOTED.
--- NOTE | 2017-06-23 11:31 | NUR ---
ASSOCIATE PROFESSOR OF LIBRARY SCIENCE DF PT MEDICATED WITH ATIVAN 2MG IVP. PT AGITATED FLAILING BUE/BLE. VSS.NAD NOTED.
--- NOTE | 2017-06-23 13:11 | NUR ---
DOOR CAPTAIN DF PT TO HAVE TRACHEOSTOMY PLACEMENT TODAY AT 1400. CONSENTS SIGNED BY 2 DANILO DEGROOT. SEDATED ON FENTANYL AT 228MCG VERSED AT 20MG/HR. BP 107/71, NSR RATE OF 87 BPM.
--- NOTE | 2017-06-23 13:25 | NUR ---
POWDER LOADER DF PT AGITATED PT MEDICATED WITH ATIVAN 2MG IVP. PHARMACY CALLED TO PROVIDE MORE FENTANYL/VERSED GTT,S.
--- NOTE | 2017-06-23 14:10 | NUR ---
HAIRSPRING ADJUSTER DF SURGICAL TEAM HERE AT BEDSIDE. STAT BMP ORDERED.AM POTASSIUM OF 2.7.PT HAD 40 MEQ KCL. 2ND CALL PLACED TO PHARMACY PT NEEDS VERSED/FENTANYL GTT.
[2017-06-23 14:31] LABS: CALCIUM, SERUM 8.2 mg/dL (8.5-10.1); CREATININE 1.5 mg/dL (0.6-1.3); POTASSIUM 3.5 mmol/L (3.5-5.1)
[2017-06-23] MEDS ORDERED: MIDAZOLAM HCL 2 MG/2ML VIAL ONE (14:31)
[2017-06-23] MEDS ORDERED: ROCURONIUM BROMIDE 50 MG/5 ML ONE (14:31)
--- NOTE | 2017-06-23 14:40 | NUR ---
ETL TESTER DF PT POTASSIUM RESULTED OF 3.5. PT TAKEN TO OR.
--- NOTE | 2017-06-23 15:15 | NUR ---
MONITOR CAR OPERATOR DF PT BACK FROM OR S/P TRACHEOSTOMY. VSS. BP OF 109/74 NSR RATE OF 89. O2 SAT OF 100%. FENTANYL GTT RESUMED AT 228 MCG AND VERSED AT 15MG. POST OP PCXR DONE, AWAITING RESULTS.
--- NOTE | 2017-06-23 16:42 | NUR ---
PREPARATION DEPARTMENT SUPERVISOR DF PT AGITATED RESTLESS, I ATTEMPTED TO INSERT RIGHT NARES NGT PT VERY AGITATED DESPITE FENTANYL/VERSED GTT PT AWAKENS WHEN STIMULATED FLAILS HEADS AND ATTEMPTS TO BITE NGT IT,S BEING INSERTED. UNABLE TO INSERT NGT AT THIS TIME 2ND AGITATION. ATIVAN 2MG IVP ADMIN PRN AGITATION. UNABLE TO GIVE PO MEDS. TYLENOL SUPP WV FOR MILD FEVER OF 99.5. Addendum: 06/23/17 at 1807 by DANIEL LEWIS RN PREPARATION DEPARTMENT SUPERVISOR DF PT REMAINS AGITATED WHEN STIMULATED, UNABLE TO INSERT NGT. DORI MERCER.
[2017-06-23] MEDS: ACETAMINOPHEN 650 MG/SUPP.RECT RC PRN (17:05)
--- NOTE | 2017-06-23 19:30 | NUR ---
ACCOUNTS RECEIVABLE CLERK: RECEIVED PT S/P [facility] PLACEMENT. [facility] ORDERED WT NO ACUTE DISTRESS. TRACH SITE CLEAN AND DRY WT NO ACTIVE BLEEDING. LUIS PICC LINE INFUSING VERSED AT 20MG/HR AND FENTANYL DRIP AT 2.6MCG/KG/MIN. PT OPENS EYES WT PAIN STIMULI, ABLE TO FOLLOW SIMPLE COMMANDS SUCH "OPEN YOUR MOUTH", "BLINK YOUR EYES TWICE" AND "SQUEEZE MY HAND". NO S/S OF PICC LINE COMPLICATIONS. RT. IJ HD CATH INTACT. AFEBRILE. SR ON SILK SCREEN CUTTER. F/C PATENT AND INTACT DRAINING BIPIN COLORED URINE TO GRAVITY. FLEXI SEAL INTACT WT LIQUID BROWN STOOL. BILAT. SOFT WRIST RESTRAINTS IN PLACE FOR EPISODES OF TRYING TO REACH TUBINGS. CIRCULATION AND SKIN WNL. UNABLE TO PLACE NGT PT STARTED TO GET AGITATED, SHAKING HIS HEAD AND KICKING. WILL ADMINISTER ATIVAN NEEDED. SAFETY PRECAUTION NOTED. WILL CONTINUE TO MONITOR.
--- NOTE | 2017-06-23 19:52 | NUR ---
RCVD. TRACHED SHILEY 8 PT [facility] WITH NOTED SETTINGS AC 30, 550, 40%, PEEP OF 5. SUCTIONED MODERATE AMOUNT OF YELLOW/RAYO THICK SECRETIONS. BREATHING TX GIVEN PER MD'S ORDERED. NO ADVERSE REACTION NOTED. PT. REMAIN STABLE AND NO RESPIRATORY DISTRESS AT THIS TIME. VENT ALARMS SET AND AUDIBLE WITH AMBU BAG AT THE BEDSIDE. COMPUTER SYSTEMS DESIGNER CUFF PRESSURE NOTED. VENT IS PLUGGED INTO RED OUTLET. WILL CONTINUE TO MONITOR .
[2017-06-24] VITALS (33 sets, daily range): BP systolic 96–161; BP diastolic 63–111
[2017-06-24] MEDS: IV NS 0.9% 250 ML IV PRN (00:23)
[2017-06-24] MEDS: MIDAZOLAM HCL 100 MG in IV NS 0.9% 80 ML IV PRN ×5 (01:38→20:13)
[2017-06-24] MEDS: NYSTATIN TOP POWDER 15 GM BOTTLE TP SCH ×2 (01:40→14:28)
[2017-06-24] MEDS: FENTANYL CITRATE IV 1,250 MCG in IV NS 0.9% 225 ML IV PRN ×5 (02:47→23:45)
[2017-06-24] MEDS: LORAZEPAM INJ 2 MG/ML VIAL IV PRN ×6 (03:12→18:03)
[2017-06-24] MEDS: ALBUTEROL FS 2.5 MG/0.5 ML VIAL.NEB NEB SCH ×6 (03:21→23:04)
[2017-06-24] MEDS: IPRATROPIUM NEB FS 0.5 MG/2.5 ML AMPUL.NEB NEB SCH ×6 (03:21→23:04)
[2017-06-24] MEDS: NEOMY SULF/BACITRAC ZN/POLY 15 GM TUBE TP SCH ×2 (04:23→16:30)
[2017-06-24 04:42] LABS: CALCIUM, SERUM 8.1 mg/dL (8.5-10.1); CREATININE 1.6 mg/dL (0.6-1.3); POTASSIUM 3.5 mmol/L (3.5-5.1)
--- NOTE | 2017-06-24 06:30 | NUR ---
CHILD WELFARE MANAGER: STILL ON VERSED AT 20MG/HR AND FENTANYL DRIP AT 2.6MCG/KG/HR. COOLING MEASURES RENDERED FOR TEMP. OF 100F AT 0400 AND NOW IMPROVED AT 99.3. CONTINUES TO FOLLOW SIMPLE COMMANDS. SAFETY PRECAUTION NOTED AT ALL TIMES.
--- NOTE | 2017-06-24 07:08 | NUR ---
SLITTER CREASER SLOTTER HELPER DF RECEIVED PT SEDATED FENTANYL 2.6 MCG/KG I DECREASED TO 2MCG/KG, VERSED GTT AT 20MG I DECREASED TO 15MG/HR IN EFFORT TO DECREASE SEDATION. PT WITH FEVERS OF 100.1 PT ON COOLING MEASURES/TYLENOL SUPP. PT WITH BILATERAL WRIST RESTRAINTS, PT FOLLOWS SOME COMMANDS, PT WITH EPISODES OF SEVERE AGITATION. PT TOO AGITATED FOR NGT INSERTION AT THIS TIME. PT THRASHES, BITES, RESISTS DURING NGT INSERTION. PT WITH FLEXISEAL WITH MODERATE OUTPUT OF LOOSE BROWN STOOL. Addendum: 06/24/17 at 0735 by DANIEL LEWIS RN RIGHT NARES NGT PLACED PLACEMENT VERIFIED BY 2 RNEran ATIVAN 2MG IVP ADMIN FOR SEDATION.PT VERY AGITATED AND UNCOOPERATIVE.
--- NOTE | 2017-06-24 08:19 | NUR ---
DIAMOND CLEAVER DF FENTANYL GTT DECREASED TO 150MCG/HR. VERSED GTT INCREASED BACK TO 20MG/HR. PT AGITATED MOVING HEAD SIDE TO SIDE IN ATTEMPT TO REMOVE NGT. NGT ON HOLD AT THIS TIME, PT TOO AGITATED, RESTLESS, ASPIRATION RISK.
[2017-06-24] MEDS: FLUCONAZOLE (100 MG) 100 MG TABLET PO SCH (08:58)
[2017-06-24] MEDS: LACTOBACILLUS RHAMNOSUS GG 1 EACH CAP.SPRINK PO SCH ×2 (08:58→17:00)
[2017-06-24] MEDS: SEVELAMER CARBONATE 0.8 GM POWD.PACK GT SCH ×3 (08:58→17:24)
--- NOTE | 2017-06-24 09:45 | NUR ---
EXHIBIT ARTIST DF PRN ATIVAN 2MG IVP ADMIN. VERSED AT 20MG/HR, FENTANYL @ 150MCG/HR. PT AGITATED FLAILS BUE/BLE. PT DIFFICULT TO KEEP HOB ABOVE 35 PT POSITIONS HIMSELF SO THAT HE IS LYING FLAT. UNABLE TO START NGT FEEDING, I WILL RESTART ONCE PT IS CALM AND COOPERATIVE. VSS.NAD NOTED.
--- NOTE | 2017-06-24 12:58 | NUR ---
CONSUMER LENDER DF PT ADMIN ATIVAN 2MG IVP PRN AGITATION/RESTLESSNESS.
--- NOTE | 2017-06-24 13:01 | NUR ---
RESIDUE FURNACE OPERATOR DF PT FENTANYL GTT 150MCG.VERSED GTT OFF, AWAITING NEW BAG FROM PHARMACY. PREVIOUSLY NOTED ATIVAN 2MG IV PRN ADMIN.
--- NOTE | 2017-06-24 15:22 | NUR ---
STATEMENT SERVICES REPRESENTATIVE DF PT VERSED GTT TITRATED TO 15MG/HR. FENTANYL TO 100MCG/HR. PT AGITATED, FOLLOWS SOME SIMPLE COMMANDS. PT MORE COOPERATIVE, WILL RESTART TUBE FEEDING VIA RIGHT NARES NGT. VSS.NAD NOTED. POC DISCUSSED WITH MD KERN/PHARMACY ATTEMPT TO TITRATE PT OFF FENTANYL AND THEN VERSED AND ADMIN PRN ATIVAN IVP.
--- NOTE | 2017-06-24 16:04 | NUR ---
ANIMAL KEEPER HEAD DF PT CONSULTED FOR GT TUBE PLACEMENT WITH MD ANAYA. REGARDING CONSENT MD KERN/MD ANAYA TO SIGN FOR CONSENT. PT VERA GRANT UNABLE TO STATE HIS NAME/DRY ROOM OPERATOR UNABLE TO VERIFY IDENTITY (SEE DRY ROOM OPERATOR NOTES)
--- NOTE | 2017-06-24 16:27 | NUR ---
MANAGER CLINICAL INFORMATICS DF NASRA Joel DNP AT BEDSIDE DISCUSSED WEANING PT OF FENTANYL/VERSED. EKG ORDERED, WILL FORWARD RESULTS TO AGENCY SALES REPRESENTATIVE ONCE AVAIL.
--- NOTE | 2017-06-24 17:30 | NUR ---
PANEL SAW OPERATOR DF PT EKG ORDERED PENDING CALLED RT.
--- NOTE | 2017-06-24 18:10 | NUR ---
WATER AEROBICS INSTRUCTOR DF EKG DONE. ATIVAN 2MG IVP PRN AGITATION. VERSED GTT TITRATED TO 12 MG/HR/FENTANYL @ 100 MCG/MIN.
[2017-06-24] MEDS ORDERED: FEE PK DOSING 1 MIN EA MC ONE (19:59)
--- NOTE | 2017-06-24 20:00 | NUR ---
ART GLASS SETTER NOTES RECEIVED PTS IN BED AWAKE AGITATED ON VENTILATOR DEPENDENT , AC SETTINGS WELL TOLERATED ,SATING 96-98%, NO SOB NO DISTRESS NOTED .WITH RIJ FOR HD ACCESS, INTACT PATENT, LUIS PICC LINE INTACT PATENT , WITH VERSED DRIP AT 12ML/HR INFUSING WELL, FENTANYL DRIP AT 25 ML /HR INFUSING WELL . NGT ON R NOSETRILS AT 60CM MEGAN , PT REMAIN ON NPO ORDERED , FOR PEG PLACEMENT LIONEL , CONSENTED FOR PROCEDURE , F/C INTACT AND PATENT DRAINING WITH YELOOWISH URINE OUTPUT, FLEXISEAL ,INTACT AND PATENT.ALL NEEDS ATTENDED TOO DUE MEDS GIVEN ORDERED CALL LIGHT WITHIN REACH KEPT PT CLEAN DRY AND COMFORTABLE, V/S STABLE AFEBRILE.WILL CONTINUE TO MONITOR PTS.
[2017-06-24] MEDS: HALOPERIDOL LACTATE INJ 5 MG/ML VIAL IM PRN (20:02)
--- NOTE | 2017-06-24 20:02 | NUR ---
DESK ATTENDANT NOTES HALDOL 5MG IM GIVEN ORDERED
[2017-06-24] MEDS ORDERED: VANCOMYCIN 1 GM VIAL ONE (21:31)
[2017-06-24] MEDS: VANCOMYCIN 1 GM in IV D5W 250 ML IV SCH (21:35)
--- NOTE | 2017-06-24 21:35 | NUR ---
FORGING MACHINE OPERATOR NOTES NEW ORDER VANCO 1 GRAM GIVEN ORDERED.
--- NOTE | 2017-06-24 21:36 | NUR ---
RT NOTE PATIENT RECEIVED TRACHED WITH SHILEY 8 CUFFED ON MECHANICAL VENT. PATIENT IS TOLERATING CURRENT ORDERED SETTINGS. NO SIGNS OF RESPIRATORY DISTRESS NOTED. VENT PLUGGED INTO RED OUTLET. ALARMS ON AND AUDIBLE. EMERGENCY EQUIPMENT AT BEDSIDE. WILL CONTINUE TO MONITOR. Addendum: 06/25/17 at 0212 by ANDREINA LUNSFORD RT Amended: Links added.
[2017-06-24 22:01] LABS: BASOPHILS # (AUTO) 0.1 /CMM (0.0-0.2); BASOPHILS % (AUTO) 0.8 % (0.0-2.0); HEMATOCRIT 27 % (39-51); HEMOGLOBIN 9.3 g/dL (13.5-17.5); LYMPHOCYTES % (AUTO) 13.9 % (20.0-44.0); MEAN CORPUSCULAR HEMOGLOBIN 29 PG (26.0-33.0); MEAN CORPUSCULAR HGB CONC 34 g/dl (31.0-36.0); MEAN CORPUSCULAR VOLUME 84 fL (80-96); MONOCYTES # (AUTO) 1.2 /CMM (0.1-1.30); MONOCYTES % (AUTO) 8.1 % (2.0-12.0); NEUTROPHILS # (AUTO) 10.9 /CMM (1.8-8.9); NEUTROPHILS % (AUTO) 75.2 % (43.0-81.0); PLATELET COUNT (AUTO) 367 /CMM (150-450); RED BLOOD CELL COUNT(AUTO) 3.21 MIL/uL (4.5-6.0); WHITE BLOOD COUNT (AUTO) 14.5 K/uL (4.3-11.0)
[2017-06-25] VITALS (44 sets, daily range): BP systolic 128–179; BP diastolic 79–133
[2017-06-25] MEDS: NYSTATIN TOP POWDER 15 GM BOTTLE TP SCH ×2 (02:37→14:43)
[2017-06-25] MEDS: IPRATROPIUM NEB FS 0.5 MG/2.5 ML AMPUL.NEB NEB SCH ×6 (03:39→23:13)
[2017-06-25] MEDS: ALBUTEROL FS 2.5 MG/0.5 ML VIAL.NEB NEB SCH ×6 (03:39→23:13)
[2017-06-25] MEDS: HALOPERIDOL LACTATE INJ 5 MG/ML VIAL IM PRN ×4 (04:09→22:57)
[2017-06-25] MEDS: NEOMY SULF/BACITRAC ZN/POLY 15 GM TUBE TP SCH ×2 (04:10→15:59)
[2017-06-25 04:32] LABS: BASOPHILS # (AUTO) 0.1 /CMM (0.0-0.2); BASOPHILS % (AUTO) 0.8 % (0.0-2.0); EOSINOPHILS % (AUTO) 2.6 % (0.0-6.0); HEMATOCRIT 26 % (39-51); HEMOGLOBIN 8.4 g/dL (13.5-17.5); LYMPHOCYTES # (AUTO) 1.2 /CMM (0.8-4.8); MEAN CORPUSCULAR HEMOGLOBIN 28 PG (26.0-33.0); MEAN CORPUSCULAR HGB CONC 33 g/dl (31.0-36.0); MEAN CORPUSCULAR VOLUME 85 fL (80-96); MONOCYTES % (AUTO) 9.7 % (2.0-12.0); NEUTROPHILS # (AUTO) 8.1 /CMM (1.8-8.9); NEUTROPHILS % (AUTO) 75.9 % (43.0-81.0); PLATELET COUNT (AUTO) 275 /CMM (150-450); RDW COEFFICIENT OF VARIATION 13.9 (11.5-15.0); WHITE BLOOD COUNT (AUTO) 10.7 K/uL (4.3-11.0)
[2017-06-25 04:41] LABS: CALCIUM, SERUM 8.7 mg/dL (8.5-10.1); CREATININE 1.2 mg/dL (0.6-1.3); POTASSIUM 3.4 mmol/L (3.5-5.1)
--- NOTE | 2017-06-25 06:28 | NUR ---
agricultural commodities inspector notes pts in bed awake remains on ventilator dependent ac settings well tolerated no sob no distress noted, pts remains on versed drip at 12mg/hr and fentanyl drip at 1.4 mcg/25ml/hr infusing , pts remains npo for peg placememt today -consented , remains on carlos wrist restraint to prevent pulling invasive tubing .will endorse to rn day shift for continuity of care.
[2017-06-25 07:31] LABS: ABG BASE EXCESS -4.2 mmol/L; ABG OXYGEN SATURATION 97.5 % (92.0-98.5); ABG PCO2 27.5 mmHg (35.0-45.0); ABG PH 7.454 (7.350-7.450); ABG PO2 119.2 mmHg (75.0-100.0); AaDO2 134.4 mmHg; COHb 0.2 % (0.5-1.5); MetHb 0.8 % (0.0-1.5); O2Hb 96.5 % (94.0-97.0); PEEP,BG 5 cm H2O; SITE, ABG Left Radial; VENT MODE, BG AC 30; VT, ABG 550 mL
[2017-06-25] MEDS: SEVELAMER CARBONATE 0.8 GM POWD.PACK GT SCH ×3 (08:00→17:07)
--- NOTE | 2017-06-25 08:00 | NUR ---
FRUIT RECEIVER NOTES RECEIVED PATIENT SEDATED , NOT IN ACUTE DISTRESS , RESPIRATIONS EVEN AND UNLABORED , SPO2 OF 100% VIA MECHANICAL VENT SETTINGS ORDERED , TRACH OF SHILEY # [address] WITH SUTURES INTACT , ST 105 ON BESIDE MONITOR , FC DRAINING VIA GRAVITY , FLEXISEAL IN PLACE , NGT PATENT AND INTACT WITH POSITIVE PLACEMENT , R IJ HD CATH C/D/I , LUIS PICC LINE PATENT AND INTACT WITH FENTANYL @ 20ML/JR , VERSED @ 12MG/HR INFUSING WELL , NS @ TKO , WILL CONTINUE TO MONITOR
[2017-06-25] MEDS: MIDAZOLAM HCL 100 MG in IV NS 0.9% 80 ML IV PRN (08:04)
[2017-06-25] MEDS: FLUCONAZOLE (100 MG) 100 MG TABLET PO SCH (08:13)
[2017-06-25] MEDS: LACTOBACILLUS RHAMNOSUS GG 1 EACH CAP.SPRINK PO SCH ×2 (08:13→16:14)
--- NOTE | 2017-06-25 08:21 | NUR ---
PATIENT RECEIVED TRACHED WITH SHILEY #8 CUFFED ON MECHANICAL VENTILATION. PT IS TOLERATING CURRENT SETTINGS. NO SIGNS OF RESPIRATORY DISTRESS NOTED. VENT PLUGGED INTO RED OUTLET. ALARMS ON AND AUDIBLE. AMBU BAG AT BEDSIDE. WILL CONTINUE TO MONITOR. Addendum: 06/25/17 at 0822 by SUNITHA GALLEGOS RT Amended: Links added.
[2017-06-25] MEDS: VANCOMYCIN 1 GM in IV D5W 250 ML IV SCH ×2 (10:58→22:09)
[2017-06-25] MEDS ORDERED: POTASSIUM CHLORIDE 20 MEQ POWDER PACKET GT SCH (11:00)
--- NOTE | 2017-06-25 11:00 | NUR ---
AREA DIRECTOR NOTES PATIENT STABLE S/P PEG PLACEMENT , GT SITE C/D/I CLAMPED , POST OP ORDERERS RECEIVED , WILL CONTINUE TO MONITOR
[2017-06-25] MEDS: LORAZEPAM INJ 2 MG/ML VIAL IV PRN ×6 (11:22→23:31)
[2017-06-25] MEDS: FENTANYL CITRATE IV 1,250 MCG in IV NS 0.9% 225 ML IV PRN (12:31)
[2017-06-25] MEDS: ACETAMINOPHEN 650 MG/20.3 ML UDC NG PRN (16:14)
--- NOTE | 2017-06-25 16:49 | NUR ---
DISPATCH COORDINATOR NOTES R IJ HD CATH REMOVED BY LITZY HD NURSE , PRESSURE APPLIED , NO BLEEDING NOTED FLEXISEAL REMOVED STOOL IS MORE PASTY IN CONSISTENCY
--- NOTE | 2017-06-25 17:12 | NUR ---
DIRECTOR OF LEARNING NOTES NOTIFIED DR KERN THAT PT STILL SEVERELY AGITATED , HR OF 110 , SBP OF 170'S , RR OF 35-40CPM , OFF VERSED , FENTANYL @ 60MCG/HR , ATIVAN 2MG Q2 AND HALDOL 5MG PRN GIVEN ROUND THE CLOCK , PER MD START PT ON ATIVAN 2MG Q1 , AND FENTANYL PATCH 75MCG Q3 DAYS , ORDERS CARRIED OUT
[2017-06-25] MEDS: FENTANYL TD PATCH (75MCG/HR) 75 MCG/HR PATCH.TD72 TD SCH (17:19)
--- NOTE | 2017-06-25 19:00 | NUR ---
SUMMER BABYSITTER NOTES RECEIVED PATIENT WITH TRACHE TO THE VENTILATOR ON AC MODE,NOT IN ANY DISTRESS BUT PATIENT VERY RESTLESS/AGITATED( ALL OVER THE BED) ON BILATERAL SOFT WRIST RESTRAINTS. ON FENTANYL DRIP,WITH prn ATIVAN AND HALDOL FOR AGITATION.PICC LINE VIA LUIS,G TUBE INSERTED TODAY,WILL START TUBE FEEDING TONIGHT TOLERATED.COMFORT CARE DONE ,NEEDS ATTENDED. AWAKE,ALERT,SEEMS LIKE LISTENING,NOT SURE IF ABLE TO UNDERSTAND,TRIES TO TALK AT TIMES.
--- NOTE | 2017-06-25 19:47 | NUR ---
RCVD. TRACHED SHILEY 8 [facility] WITH NOTED SETTINGS AC 30, 550, 40%, PEEP OF 5. SUCTIONED MODERATE AMOUNT OF YELLOW/RAYO THICK SECRETIONS. BREATHING TX GIVEN PER MD'S ORDERED. NO ADVERSE REACTION NOTED. PT. REMAIN STABLE AND NO RESPIRATORY DISTRESS AT THIS TIME. VENT ALARMS SET AND AUDIBLE WITH AMBU BAG AT THE BEDSIDE. STRUCTURAL DRAFTSMAN CUFF PRESSURE NOTED. VENT IS PLUGGED INTO RED OUTLET. WILL CONTINUE TO MONITOR .
[2017-06-25] MEDS: NEPRO 1,000 ML BOTTLE GT PRN ×2 (20:26→23:07)
[2017-06-26] VITALS (40 sets, daily range): BP systolic 102–184; BP diastolic 24–120
--- NOTE | 2017-06-26 | NUR ---
SENIOR SYSTEMS DEVELOPER NOTES PATIENT REMAINS VERY AGITATED,CALMS DOWN FOR A WHILE AFTER ATIVAN DOSE BUT GETS AFTER 1-2 HRS.TOLERATING FEEDING AT 50 GOAL RATE ML/HR. 0400 AM CARE DONE.
[2017-06-26] MEDS: LORAZEPAM INJ 2 MG/ML VIAL IV PRN ×5 (00:32→22:58)
[2017-06-26] MEDS: NYSTATIN TOP POWDER 15 GM BOTTLE TP SCH ×2 (01:42→14:22)
[2017-06-26] MEDS: ALBUTEROL FS 2.5 MG/0.5 ML VIAL.NEB NEB SCH ×6 (03:31→23:32)
[2017-06-26] MEDS: IPRATROPIUM NEB FS 0.5 MG/2.5 ML AMPUL.NEB NEB SCH ×6 (03:31→23:32)
[2017-06-26] MEDS: NEOMY SULF/BACITRAC ZN/POLY 15 GM TUBE TP SCH ×2 (03:56→17:17)
[2017-06-26] MEDS: FENTANYL CITRATE IV 1,250 MCG in IV NS 0.9% 225 ML IV PRN (04:22)
[2017-06-26 05:04] LABS: CALCIUM, SERUM 9.1 mg/dL (8.5-10.1); CREATININE 1.1 mg/dL (0.6-1.3); POTASSIUM 3.3 mmol/L (3.5-5.1)
--- NOTE | 2017-06-26 05:10 | NUR ---
REGIONAL DIRECTOR NOTES REMAINS AGITATED,ON FENTANYL DRIP AT 60 MCG/HR.mAINTAINED ON 1;1 WATCH DUE TO AGITATION DESPITE SEDATION WITH ATIVAN AND HALDOL PRN. 0700 ASSIGNED RN NOT AVAILABLE,BRIEF REPORT GIVEN TO CHARGE NURSE FOR NOW AND WILL WATCH PATIENT.SITTER AT BEDSIDE.
[2017-06-26] MEDS: HALOPERIDOL LACTATE INJ 5 MG/ML VIAL IM PRN ×2 (06:05→14:32)
[2017-06-26] MEDS: SEVELAMER CARBONATE 0.8 GM POWD.PACK GT SCH (08:00)
--- NOTE | 2017-06-26 08:30 | NUR ---
ICU/RN AM SHIFT INITIAL NOTES RECEIVED PT OPEN EYES, RESTLESS, NON-VERBAL, NO ACUTE DISTRESS NOTED, WITH SITTER AT BEDSIDE. ON VENTILATOR SUPPORT WITH RATES SET PRESCRIBED, SATURATING @ 99%, LUNG SOUNDS DIMINISHED, SUCTIONED FOR AIRWAY CLEARANCE. ON TELE MONITORING, SINUS TACHY, HR 113. BATES CATHETER INTACT WITH YELLOW URINE OUTPUT. ON GOING INFUSION OF FENTANYL CITRATE @ 60MCG/HR, CENTRAL PATENT WITH NO S/S OF INFECTION. SCHEDULED AM MEDS TO BE GIVEN. CL WITHIN REACHED AND SAFETY MAINTAINED. ON GOING MONITORING. Addendum: 06/26/17 at 1026 by CHAYA MARQUEZ RN ADDENDUM: ON GT FEEDING @ 50CC/HR, NO GASTRIC RESIDUAL, FLUSHED, PATENT.
[2017-06-26] MEDS: VANCOMYCIN 1 GM in IV D5W 250 ML IV SCH ×2 (08:44→21:30)
[2017-06-26] MEDS: FLUCONAZOLE (100 MG) 100 MG TABLET PO SCH (08:45)
[2017-06-26] MEDS: LACTOBACILLUS RHAMNOSUS GG 1 EACH CAP.SPRINK PO SCH ×2 (08:45→17:17)
[2017-06-26 10:53] LABS: BASOPHILS # (AUTO) 0.3 /CMM (0.0-0.2); BASOPHILS % (AUTO) 1.9 % (0.0-2.0); EOSINOPHILS % (AUTO) 2.5 % (0.0-6.0); HEMATOCRIT 29 % (39-51); HEMOGLOBIN 9.6 g/dL (13.5-17.5); LYMPHOCYTES # (AUTO) 2.1 /CMM (0.8-4.8); LYMPHOCYTES % (AUTO) 16.5 % (20.0-44.0); MEAN CORPUSCULAR HEMOGLOBIN 28 PG (26.0-33.0); MEAN CORPUSCULAR HGB CONC 33 g/dl (31.0-36.0); MEAN CORPUSCULAR VOLUME 85 fL (80-96); MONOCYTES # (AUTO) 1.2 /CMM (0.1-1.30); NEUTROPHILS # (AUTO) 9.1 /CMM (1.8-8.9); NEUTROPHILS % (AUTO) 70.1 % (43.0-81.0); PLATELET COUNT (AUTO) 425 /CMM (150-450); RDW COEFFICIENT OF VARIATION 13.7 (11.5-15.0)
--- NOTE | 2017-06-26 11:00 | NUR ---
ICU/RN ROUNDS - SHAQ ROLON. UPDATED PT'S CONDITION. PT SEEN & EXAMINED BY SHAQ ROLON, NO NEW ORDERS RECEIVED AT THIS TIME. ON GOING MONITORING.
[2017-06-26] MEDS ORDERED: POTASSIUM CHLORIDE 20 MEQ POWDER PACKET GT ONE (11:30)
[2017-06-26] MEDS: NEPRO 1,000 ML BOTTLE GT PRN (11:47)
--- NOTE | 2017-06-26 12:00 | NUR ---
ICU/RN ROUNDS PT STILL VERY RESTLESS, NO OTHER CHANGE OF CONDITION NOTED. MONITORING CONTINUED.
[2017-06-26] MEDS: ACETAMINOPHEN 650 MG/20.3 ML UDC NG PRN (13:55)
--- NOTE | 2017-06-26 17:00 | NUR ---
ICU/RN FENTANYL INFUSION - STOP PM CARE PROVIDED, PT RESTLESS. NO OTHER CHANGE OF CONDITION NOTED. FENTANYL INFUSION DISCONTINUED BY CHARGE NURSE. MONITORING.
--- NOTE | 2017-06-26 19:40 | NUR ---
ICU/RN AM SHIFT END NOTES ALL NEEDS MET. PT WAS RESTLESS THROUGHOUT THE SHIFT, NO OTHER NEW CHANGE OF CONDITION NOTED DURING THE SHIFT. PT ENDORSED TO PM NURSE TO CONTINUE CARE. BILATERAL SOFT WRIST RESTRAINTS IN PLACE, BATES CATHETER INTACT, PICC LINE PATENT AND GT FEEDING ON GOING. CL WITHIN REACHED AND SAFETY MAINTAINED.
[2017-06-26] MEDS: IV NS 0.9% 250 ML IV PRN (21:30)
[2017-06-27] VITALS (18 sets, daily range): BP systolic 135–171; BP diastolic 56–122
[2017-06-27] MEDS: LORAZEPAM INJ 2 MG/ML VIAL IV PRN ×6 (01:00→15:30)
--- NOTE | 2017-06-27 01:00 | NUR ---
PATIENT RECEIVED TRACHED WITH SHILEY #8 CUFFED ON MECHANICAL VENTILATION. PT IS TOLERATING CURRENT SETTINGS. NO SIGNS OF RESPIRATORY DISTRESS NOTED. VENT PLUGGED INTO RED OUTLET. ALARMS ON AND AUDIBLE. AMBU BAG AT BEDSIDE. WILL CONTINUE TO MONITOR. Addendum: 06/27/17 at 0101 by CHRISTINA CARDENAS RT Amended: Links added.
[2017-06-27] MEDS: NYSTATIN TOP POWDER 15 GM BOTTLE TP SCH ×2 (02:00→16:27)
[2017-06-27] MEDS: ALBUTEROL FS 2.5 MG/0.5 ML VIAL.NEB NEB SCH ×5 (04:27→20:17)
[2017-06-27] MEDS: IPRATROPIUM NEB FS 0.5 MG/2.5 ML AMPUL.NEB NEB SCH ×5 (04:27→20:17)
[2017-06-27] MEDS: NEOMY SULF/BACITRAC ZN/POLY 15 GM TUBE TP SCH ×2 (04:47→16:27)
[2017-06-27 05:15] LABS: CREATININE 1.1 mg/dL (0.6-1.3)
--- NOTE | 2017-06-27 07:46 | NUR ---
STORAGE RECEIPT POSTER RECEIVED PATIENT FROM THE PREVIOUS SHIFT. PATIENT IS IN BED. RESTING COMFORTABLY. VENT SETTINGS REVIEWED AND VERIFIED. SUCTION PROVIDED FOR CLEARANCE. VITAL SINGS STABLE. WILL CONTINUE TO MONITOR AND PROVIDE CARE.
[2017-06-27] MEDS: FLUCONAZOLE (100 MG) 100 MG TABLET PO SCH (08:51)
[2017-06-27] MEDS: LACTOBACILLUS RHAMNOSUS GG 1 EACH CAP.SPRINK PO SCH ×2 (08:51→16:28)
--- NOTE | 2017-06-27 09:31 | NUR ---
PT. USED SAME MECH VENT, TRANSFERRED FROM ICU TO ROOM 105. MECH VENT PLUGGED INTO RED OUTLET WITH HELLENG @ BEDSIDE. Addendum: 06/27/17 at 0935 by CHEYENNE LAYTON RT Amended: Links added.
--- NOTE | 2017-06-27 09:32 | NUR ---
ENGINEERING TECHNICAL WRITER TRANSFERRED THE PATIENT TO TELE CONSTANTINO LEVEL CARE ON STABLE CONDITIONS.
--- NOTE | 2017-06-27 09:32 | NUR ---
AGNIESZKA RN NOTES RECEIVED FROM ICU MAURICE RN. VITAL SIGNS OF 166/104 . SINUS TACHYCARDIA 101. TEMP OF 99.0. SATURATION OF 99. PT AGITATED AND CONFUSED. WILL CONTINUE TO MONITOR PT CLOSELY.
[2017-06-27] MEDS ORDERED: POTASSIUM CHLORIDE 20 MEQ POWDER PACKET GT SCH (10:00)
[2017-06-27] MEDS: VANCOMYCIN 1 GM in IV D5W 250 ML IV SCH (10:10)
[2017-06-27 10:28] LABS: BASOPHILS # (AUTO) 0.1 /CMM (0.0-0.2); BASOPHILS % (AUTO) 0.7 % (0.0-2.0); EOSINOPHILS % (AUTO) 0.8 % (0.0-6.0); HEMATOCRIT 28 % (39-51); HEMOGLOBIN 9.3 g/dL (13.5-17.5); LYMPHOCYTES # (AUTO) 1.9 /CMM (0.8-4.8); LYMPHOCYTES % (AUTO) 14.4 % (20.0-44.0); MEAN CORPUSCULAR HEMOGLOBIN 28 PG (26.0-33.0); MEAN CORPUSCULAR HGB CONC 33 g/dl (31.0-36.0); MEAN CORPUSCULAR VOLUME 85 fL (80-96); MONOCYTES # (AUTO) 1.3 /CMM (0.1-1.30); MONOCYTES % (AUTO) 9.8 % (2.0-12.0); NEUTROPHILS # (AUTO) 9.6 /CMM (1.8-8.9); NEUTROPHILS % (AUTO) 74.3 % (43.0-81.0); PLATELET COUNT (AUTO) 400 /CMM (150-450); RDW COEFFICIENT OF VARIATION 13.9 (11.5-15.0); RED BLOOD CELL COUNT(AUTO) 3.28 MIL/uL (4.5-6.0); WHITE BLOOD COUNT (AUTO) 12.9 K/uL (4.3-11.0)
[2017-06-27] MEDS: IV 1/2NS 1000 ML 1,000 ML IV PRN ×2 (10:34→22:19)
[2017-06-27] MEDS: OLANZAPINE 2.5 MG TABLET GT SCH ×2 (10:54→16:29)
[2017-06-27 11:57] LABS: BAND % (MANUAL) 3 % (0.0-5.0); EOSINOPHILS % (MANUAL) 1 % (0-4); LYMPHOCYTES % (MANUAL) 12 % (16-48); METAMYELOCYTES % 1 % (0-0); MONOCYTES % (MANUAL) 13 % (0-11.0); NEUTROPHILS % (MANUAL) 70 (42-76)
--- NOTE | 2017-06-27 13:01 | NUR ---
TD RN NOTES PT CONFUSED AND AGITATED.
--- NOTE | 2017-06-27 18:58 | NUR ---
TD RN NOTES NO ACUTE CHANGES NOTED DURING THE SHIFT. NO SEIZURES. HEAD OF BED ELEVATED. SIDE RAILS UP. CALL LIGHT WITHIN REACH. NO RESIDUAL ON FEEDING. IV ACCESS INTACT. WILL ENDORSE TO THE PM NURSE FOR NÉSTOR.
--- NOTE | 2017-06-27 19:45 | NUR ---
ICU/CUE SELECTOR RECEIVED REPORT FROM DAY NURSE, PT IS ALERT X2 , AND DOES TRY RESPOND BUT TRACH. PT CAN BECOME RESTLESS AND COMBATIVE WHICH REQUIRES A SITTER. PT HAS TRACH, TOLERATING CURRENT VENT SETTINGS. SATURATION IS 98-100% WITH THICK ORAL AND INLINE SECRETIONS THAT REQUIRE FREQUENT SUCTIONING. PT HAS A GT FEEDING TUBE AT 50 ML/HR WITH NO RESIDUALS. PT HAS A BATES CATH, DRAINING YELLOW URINE. PT DOES HAVE A FEW SKIN ISSUES THAT ARE ADDRESSED ON THE FLOWSHEET. PT WAS TURNED AND REPOSITIONED FOR COMFORT AND CARE.
[2017-06-27] MEDS: VANCOMYCIN 0.75 GM in IV D5W 250 ML IV SCH (20:41)
--- NOTE | 2017-06-27 22:10 | NUR ---
CONSTANTINO/LOSS PREVENTION LEAD PT REMAINS AGGRESSIVE KICKING AND TRYING TO PLACE LEGS OVER RAILS. PT REQUIRES FREQUENT ORT TO PLACE.
--- NOTE | 2017-06-27 23:20 | NUR ---
CONSTANTINO/MARKETING TRAFFIC MANAGER PT WAS GIVEN PM CARE ALONG WITH ORAL CARE. PT TOLERATED THIS WELL. REMAINS ON CURRENT VENT SETTINGS, SATURATION IS 100%. AT THIS TIME PHOTO DOCUMENTATION OF WOUNDS WERE DONE AND PLACED IN CHART DUE TO HOSPITAL POLICY AND PROCEDURES FOR WEDNESDAY. ALL DRESSING CHANGES WERE DONE AT THIS TIME WELL. PT TOLERATING THE G/TUBE FEEDING, WITH NO RESIDUALS. AND IVF ARE GOING IN. PT WAS TURNED AND REPOSITIONED FOR COMFORT AND CARE.
[2017-06-28 00:02] VITALS: BP 144/83
[2017-06-28] MEDS: IPRATROPIUM NEB FS 0.5 MG/2.5 ML AMPUL.NEB NEB SCH ×7 (00:18→23:49)
[2017-06-28] MEDS: ALBUTEROL FS 2.5 MG/0.5 ML VIAL.NEB NEB SCH ×7 (00:18→23:49)
[2017-06-28] MEDS: NEOMY SULF/BACITRAC ZN/POLY 15 GM TUBE TP SCH ×2 (01:36→16:00)
[2017-06-28] MEDS: NYSTATIN TOP POWDER 15 GM BOTTLE TP SCH ×2 (01:37→14:00)
--- NOTE | 2017-06-28 02:10 | NUR ---
CONSTANTINO/INFANTRY OPERATIONS SPECIALIST PT HAD ANOTHER LOSE BM, PT CLEANED UP AND CHANGED. PT WAS KICKING AND FIGHTING THOUGH OUT THIS PROCESS. PT TRIED TO THROW LEGS OVER SIDE RAILS. WILL CONTINUE TO MONITOR THIS PT. REQUIRES FREQUENT REORT TO TIME AND PLACE.
[2017-06-28 04:00] VITALS: BP 148/102
[2017-06-28] MEDS: NEPRO 1,000 ML BOTTLE GT PRN (04:01)
[2017-06-28] MEDS: IV 1/2NS 1000 ML 1,000 ML IV PRN ×2 (05:58→19:10)
--- NOTE | 2017-06-28 07:00 | NUR ---
RN INITIAL NOTE RN RECEIVED PT IN BED ALERT/ DISORIENTED X2 , PATIENT CURRENTLY EXTREMELY RESTLESS KICKING LEGS OVER THE SIDE OF THE BED SITTER ORDERED PM PHARMACIST ASSISTANT SEAT WITH PATIENT OVER THE PM SHIFT. TRACH PATIENT TOLERATING VENT SETTINGS WELL AT THIS TIME SATURATING WELL -100% WITH THICK ORAL AND INLINE SECRETIONS THAT REQUIRE SUCTIONING. PT HAS A GT FEEDING TUBE AT 50 ML/HR WITH NO RESIDUALS. PT HAS A BATES CATH, DRAINING YELLOW URINE.PT [id number] CHANGE RECENTLY PERFORMED BY THE PM RN . PT HAS BILATERAL WRIST RESTRAINTS NOTED SKIN INTACT TOILETING OFFERED, RN WILL CONTINUE TO FOLLOW PATIENT PROGRESS
[2017-06-28] MEDS: LORAZEPAM INJ 2 MG/ML VIAL IV PRN ×2 (07:10→12:28)
[2017-06-28 08:00] VITALS: BP_SYST 147; BP_SYST 156; BP_DIAS 100
[2017-06-28] MEDS: OLANZAPINE 2.5 MG TABLET GT SCH ×2 (08:43→17:01)
[2017-06-28] MEDS: FLUCONAZOLE (100 MG) 100 MG TABLET PO SCH (08:43)
[2017-06-28] MEDS: LACTOBACILLUS RHAMNOSUS GG 1 EACH CAP.SPRINK PO SCH ×2 (08:43→17:00)
[2017-06-28] MEDS: VANCOMYCIN 0.75 GM in IV D5W 250 ML IV SCH ×2 (08:44→21:53)
[2017-06-28 11:35] LABS: CALCIUM, SERUM 9.1 mg/dL (8.5-10.1); CREATININE 0.9 mg/dL (0.6-1.3)
[2017-06-28 11:39] LABS: BASOPHILS % (AUTO) 0.3 % (0.0-2.0); EOSINOPHILS % (AUTO) 1.2 % (0.0-6.0); HEMATOCRIT 26 % (39-51); LYMPHOCYTES # (AUTO) 1.8 /CMM (0.8-4.8); LYMPHOCYTES % (AUTO) 13.9 % (20.0-44.0); MEAN CORPUSCULAR HEMOGLOBIN 29 PG (26.0-33.0); MEAN CORPUSCULAR HGB CONC 34 g/dl (31.0-36.0); MEAN CORPUSCULAR VOLUME 84 fL (80-96); MONOCYTES # (AUTO) 0.9 /CMM (0.1-1.30); NEUTROPHILS # (AUTO) 10.3 /CMM (1.8-8.9); NEUTROPHILS % (AUTO) 77.6 % (43.0-81.0); PLATELET COUNT (AUTO) 386 /CMM (150-450); RDW COEFFICIENT OF VARIATION 13.7 (11.5-15.0); RED BLOOD CELL COUNT(AUTO) 3.15 MIL/uL (4.5-6.0); WHITE BLOOD COUNT (AUTO) 13.2 K/uL (4.3-11.0)
[2017-06-28 12:00] VITALS: BP_SYST 153; BP_SYST 154; BP_DIAS 100
[2017-06-28 16:00] VITALS: BP 150/96
[2017-06-28] MEDS: FENTANYL TD PATCH (75MCG/HR) 75 MCG/HR PATCH.TD72 TD SCH (17:41)
--- NOTE | 2017-06-28 19:59 | NUR ---
RN CLOSING NOTE PATIENT IN STABLE CONDITION AT THIS TIME CONTINUATION OF CARE ENDORSED TO PM RN, PATIENT PRESENTS MORE ALERT AND ORIENTED AT THIS TIME NO SOB OR DISTRESS NOTED TOLERATING VENT SETTING WELL Addendum: 06/28/17 at 1999 by JOHANNA BUSTAMANTE RN SITTER AT THE BEDSIDE
[2017-06-28 20:00] VITALS: BP 153/105
[2017-06-29] VITALS: BP 147/101
[2017-06-29] MEDS: NYSTATIN TOP POWDER 15 GM BOTTLE TP SCH ×2 (03:12→14:00)
[2017-06-29] MEDS: NEOMY SULF/BACITRAC ZN/POLY 15 GM TUBE TP SCH ×2 (03:13→17:39)
[2017-06-29 04:00] VITALS: BP 145/103
[2017-06-29] MEDS: IPRATROPIUM NEB FS 0.5 MG/2.5 ML AMPUL.NEB NEB SCH ×5 (04:17→19:47)
[2017-06-29] MEDS: ALBUTEROL FS 2.5 MG/0.5 ML VIAL.NEB NEB SCH ×5 (04:17→19:47)
--- NOTE | 2017-06-29 06:41 | NUR ---
RN NOTE RECEIVED PT IN NO ACUTE DISTRESS IN BED. PT IS A/O X 3 AND ABLE TO MAKE NEEDS KNOWN. PT IS ON MECHANICAL VENT VIA TRACH. PT TOLERATING VENT SETTING WELL. PT HAS GTUBE THAT IS CLEAN DRY INTACT AND PATENT. PT HAS UPPER RIGHT ARM PICC THAT IS CLEAN DRY INTACT AND PATENT WITH 1/2 NS @ 100ML/HR. PT DID NOT HAVE ANY SIGNIFICANT CHANGE IN CONDITION DURING SHIFT. ALL NEEDS MET, ALL ORDERS CARRIED OUT. WILL ENDORSE CARE TO AM RN FOR CONTINUITY OF CARE.
[2017-06-29 07:19] LABS: CALCIUM, SERUM 9.3 mg/dL (8.5-10.1); CREATININE 0.8 mg/dL (0.6-1.3)
--- NOTE | 2017-06-29 07:25 | NUR ---
RN OPENING NOTES RECEIVED PATIENT IN BED, A/O X 3 AND ABLE TO MAKE NEEDS KNOWN. PATIENT IS ON MECHANICAL VENT VIA TRACH, TOLERATING VENT SETTING WELL. NO ACUTE DISTRESS, NO SOB, DENIED PAIN OR DISCOMFORT. SITTER ON BEDSIDE FOR SAFETY. PATIENT HAS GTUBE THAT IS CLEAN DRY INTACT AND PATENT. PATIENT HAS UPPER RIGHT ARM PICC THAT IS CLEAN DRY INTACT AND PATENT WITH 1/2 NS @ 100ML/HR. KEPT PATIENT SAFE AND COMFORTABLE. BED IN LOW/LOCKED POSITION, SIDERAILS UPX2, CALL LIGHT IN REACH. WILL CONTINUE TO MONITOR ACCORDINGLY.
--- NOTE | 2017-06-29 07:31 | NUR ---
Male natalya pt received on a mechanical vent. Pt natalya is secure. Vent is plugged into a red outlet, alarms are set and audible, and BVM is at bedside, Addendum: 06/29/17 at 0732 by NITHIN SALGADO RT Amended: Links added.
[2017-06-29 07:43] LABS: POTASSIUM 2.7 mmol/L (3.5-5.1)
[2017-06-29 08:00] VITALS: BP 145/100
--- NOTE | 2017-06-29 09:00 | NUR ---
RN NOTES NOTIFIED DR MCBRIDE REGARDING POTASSIUM LEVEL OF 2.7. NEW ORDER OF KCL 40MEQ VIA GT.
[2017-06-29] MEDS: VANCOMYCIN 0.75 GM in IV D5W 250 ML IV SCH (09:27)
[2017-06-29] MEDS: OLANZAPINE 2.5 MG TABLET GT SCH ×2 (09:39→16:29)
[2017-06-29] MEDS: LACTOBACILLUS RHAMNOSUS GG 1 EACH CAP.SPRINK PO SCH ×2 (09:39→16:29)
[2017-06-29] MEDS: FLUCONAZOLE (100 MG) 100 MG TABLET PO SCH (09:40)
--- NOTE | 2017-06-29 10:14 | NUR ---
DISPENSING LEAD FOLLOW UP PATIENT SEEN AND LEFT BUTTOCK DTI EVALUATED. DTI HAS NOW FULLY EVOLVED AND IS 100% YELLOW NECROTIC TISSUE AND UNSTAGEABLE. ULCER MEASURES 2.5CM X 1CM X UTD. SMALL AMOUNT OF SEROUS DRNG. RECOMMEND SURGICAL FOLLOW UP FOR POSSIBLE DEBRIDEMENT PATIENT CONDITION PERMITS. SURGICAL TEAM CURRENTLY FOLLOWING AND HAVE BEEN NOTIFIED.
--- NOTE | 2017-06-29 10:32 | NUR ---
along with window caser Ania Morris and ppap coordinator Loan met with pt. bedside. Pt. is alert and oriented and is able to write down answers to questions that are asked of him. Pt. was able to give us his First and last name and date of of 1970. Pt. states he has a brother named Wade Banda who works at [employer] in [facility]. billing manager Ania is going ot call and followup with them regarding a Wade Banda. .
[2017-06-29] MEDS: POTASSIUM CHLORIDE 20 MEQ POWDER PACKET GT ONE ×2 (11:30→12:07)
[2017-06-29 12:00] VITALS: BP 142/99
[2017-06-29] MEDS: IV 1/2NS 1000 ML 1,000 ML IV PRN (13:48)
--- NOTE | 2017-06-29 14:11 | NUR ---
RN NOTES KCL 40MEQ POWDER PACK REFUSED BY PATIENT. EDUCATED AND EXPLAINED RISK AND BENEFITS BUT STILL REFUSED. NOTIFIED DR MCBRIDE.
[2017-06-29] MEDS ORDERED: POTASSIUM CHLORIDE 20 MEQ POWDER PACKET GT SCH (14:30)
--- NOTE | 2017-06-29 14:30 | NUR ---
RN NOTES PATIENT AGREED TO TAKE POTASSIUM SUPPLEMENT AFTER RE-EDUCATION. REORDERED POTASSIUM 40 MEQ VIA GT POWDER PACK ONE TIME ORDER..
[2017-06-29] MEDS: POTASSIUM CL. PREMIX PERIPHER. 50 ML IV SCH ×2 (14:58→16:23)
[2017-06-29] MEDS: LORAZEPAM INJ 2 MG/ML VIAL IV PRN ×2 (15:24→20:51)
[2017-06-29] MEDS ORDERED: VITAMINS A AND D 56.7 GM TUBE TP PRN (15:30)
--- NOTE | 2017-06-29 15:54 | NUR ---
RN NOTES POTASSIUM 20MEQ IV ALSO ORDERED BY .
[2017-06-29 16:00] VITALS: BP 154/101
[2017-06-29] MEDS: HYDROGEL DRESSING 90 GM TUBE TP SCH (16:22)
[2017-06-29] MEDS: Z GUARD REMEDY 2 OZ OINT TP PRN (16:28)
--- NOTE | 2017-06-29 19:25 | NUR ---
SAUSAGE MEAT TRIMMER OPENING NOTES RECEIVED REPORT FROM ELBA LUA. PATIENT A/A/O X2-3 W/ SOME CONFUSION. ABLE TO MOUTH WORDS & WRITE TO MAKE NEEDS KNOWN. BREATHING EVEN & UNLABORED W/ TRACH INTACT & VENT SETTINGS AC 30, TV 550, FIO2 40%, PEEP 5. SATING WELL @ 100%. ON TELE W/ SINUS RHYTHM, HR 81. NO RESPIRATORY OR CARDIAC DISTRESS NOTED. RIGHT UPPER ARM PICC LINE INTACT & PATENT W/ DRESSING CDI & IVF 1/2 NS @ 100 ML/HR. G-TUBE FLUSHING WELL W/ GTF NOVASOURCE @ 50 ML/HR. NO RESIDUAL NOTED @ THIS TIME. BATES CATH DRAINING YELLOW URINE. SAFETY MEASURES IN PLACE & HOB ELEVATED FOR ASPIRATION PRECAUTIONS. SITTER @ BEDSIDE. WILL CONTINUE TO MONITOR.
--- NOTE | 2017-06-29 19:35 | NUR ---
RN CLOSING NOTES PATIENT IN STABLE CONDITION. ALL NEEDS ATTENDED AND PROVIDED. KEPT PATIENT SAFE AND COMFORTABLE. SITTER ON BEDSIDE FOR SAFETY. PATIENT ON RESTRAINT, PATIENT NOTED PULLING OF TUBINGS AND TRACH. BED IN LOW/LOCKED POSITION, SIDERAILS UPX2, HOB ELEVATED, CALL LIGHT IN REACH. ENDORSED TO NIGHT RN FOR NÉSTOR.
[2017-06-29 20:00] VITALS: BP 141/99
[2017-06-30] VITALS: BP 139/99
[2017-06-30] MEDS: ALBUTEROL FS 2.5 MG/0.5 ML VIAL.NEB NEB SCH ×7 (00:15→22:54)
[2017-06-30] MEDS: IPRATROPIUM NEB FS 0.5 MG/2.5 ML AMPUL.NEB NEB SCH ×7 (00:15→22:54)
[2017-06-30] MEDS: LORAZEPAM INJ 2 MG/ML VIAL IV PRN ×5 (01:15→22:06)
[2017-06-30] MEDS: NYSTATIN TOP POWDER 15 GM BOTTLE TP SCH ×2 (01:22→14:08)
[2017-06-30 04:00] VITALS: BP_SYST 183; BP_DIAS 112; BP_DIAS 114
[2017-06-30] MEDS: IV 1/2NS 1000 ML 1,000 ML IV PRN ×2 (04:42→23:38)
[2017-06-30] MEDS: NEOMY SULF/BACITRAC ZN/POLY 15 GM TUBE TP SCH ×2 (04:43→16:44)
[2017-06-30] MEDS: ACETAMINOPHEN 650 MG/20.3 ML UDC NG PRN (04:52)
--- NOTE | 2017-06-30 05:10 | NUR ---
CATERING SERVICE MANAGER NOTES PATIENT'S BP NOTED IN 170-180S. TAKEN SEVERAL TIMES W/ NO CHANGE. SPOKE TO SHERMAN SHETH & RECEIVED ORDER FOR HYDRALAZINE PRN FOR SBP >160. NEW ORDER NOTED & CARRIED OUT.
[2017-06-30] MEDS: hydrALAZINE HCL IV 20 MG VIAL IV PRN (05:15)
[2017-06-30 06:31] LABS: BASOPHILS % (AUTO) 0.1 % (0.0-2.0); EOSINOPHILS % (AUTO) 0.8 % (0.0-6.0); HEMATOCRIT 26 % (39-51); HEMOGLOBIN 9.1 g/dL (13.5-17.5); LYMPHOCYTES # (AUTO) 1.6 /CMM (0.8-4.8); LYMPHOCYTES % (AUTO) 10.3 % (20.0-44.0); MEAN CORPUSCULAR HEMOGLOBIN 29 PG (26.0-33.0); MEAN CORPUSCULAR HGB CONC 35 g/dl (31.0-36.0); MEAN CORPUSCULAR VOLUME 84 fL (80-96); MONOCYTES # (AUTO) 0.8 /CMM (0.1-1.30); NEUTROPHILS # (AUTO) 12.8 /CMM (1.8-8.9); NEUTROPHILS % (AUTO) 83.8 % (43.0-81.0); PLATELET COUNT (AUTO) 360 /CMM (150-450); RED BLOOD CELL COUNT(AUTO) 3.14 MIL/uL (4.5-6.0); WHITE BLOOD COUNT (AUTO) 15.2 K/uL (4.3-11.0)
[2017-06-30 06:46] LABS: CALCIUM, SERUM 10.1 mg/dL (8.5-10.1); CREATININE 0.9 mg/dL (0.6-1.3); MAGNESIUM 1.3 mg/dL (1.8-2.4); PHOSPHORUS 3.9 mg/dL (2.5-4.9)
[2017-06-30 07:17] LABS: POTASSIUM 2.5 mmol/L (3.5-5.1)
--- NOTE | 2017-06-30 07:41 | NUR ---
PUBLIC WORKS MANAGER NOTE CALLED DONNELL MCBRIDE NP AWAITING CALL BACK TO REPORT POTASSIUM 2.5.
[2017-06-30 08:00] VITALS: BP 149/105
--- NOTE | 2017-06-30 08:15 | NUR ---
SEARCH COORDINATOR NOTE: RECEIVED REPORT FROM CONSTANTINO KENNEDY RN FOR CONTINUITY OF CARE. PATIENT IN BED, VENT-TRACH DEPENDENT. ON DEPUTY SHERIFF CIVIL DIVISION, SR HR= 84. HOB ELEVATED. ON GT FEEDING NOVASOURCE@ 50CC/HR NO RESIDUAL NOTED AND TOLERATING WELL. (R) UA PICC LINE NOTED PATENT AND INTACT INFUSING NS@ 100ML/HR. BED ALARM AND LOCKED AT ALL TIMES. CALL LIGHT WITHIN REACH. NEEDS ANTICIPATED. PATIENT ON 1:1 SITTER AND PLACED IN FRONT OF THE NURSING STATION FOR CLOSE MONITORING. AWAITING FOR DR. MCBRIDE'S RETURN CALL FOR THE PATIENT'S ABNORMAL LAB FOR POTASSIUM AND MAGNESIUM.
--- NOTE | 2017-06-30 08:29 | NUR ---
REPORT GIVEN TO LUPE LUA FOR NÉSTOR.
[2017-06-30] MEDS: OLANZAPINE 2.5 MG TABLET GT SCH ×2 (09:30→17:17)
[2017-06-30] MEDS: LACTOBACILLUS RHAMNOSUS GG 1 EACH CAP.SPRINK PO SCH ×2 (09:30→17:17)
[2017-06-30 09:31] LABS: ABG BASE EXCESS -1.5 mmol/L; ABG OXYGEN SATURATION 92.3 % (92.0-98.5); ABG PCO2 29.7 mmHg (35.0-45.0); ABG PH 7.475 (7.350-7.450); ABG PO2 67.5 mmHg (75.0-100.0); AaDO2 183.5 mmHg; COHb 0.2 % (0.5-1.5); MetHb 0.4 % (0.0-1.5); O2Hb 91.7 % (94.0-97.0); SITE, ABG Right Radial
[2017-06-30] MEDS: HYDROGEL DRESSING 90 GM TUBE TP SCH (09:31)
--- NOTE | 2017-06-30 09:35 | NUR ---
GASOLINE PLANT OPERATOR NOTE: RECEIVED AN ORDER FROM DR. DONNELL MCBRIDE FOR THE POTASSIUM AND MAGNESIUM LEVEL TODAY. ORDER, NOTED AND ACKNOWLEDGED. PATIENT MADE AWARE.
[2017-06-30] MEDS: POTASSIUM CL. PREMIX PERIPHER. 50 ML IV SCH ×6 (10:33→16:23)
[2017-06-30] MEDS: Magnesium 1GM/D5W 100ML PREMIX 100 ML IV SCH ×4 (11:10→14:33)
--- NOTE | 2017-06-30 11:10 | NUR ---
HAND MODEL NOTE: PATIENT WAS NOTED VERY AGITATED AND RESTLESS. HE WAS TRYING TO GET OUT OF BED. DR. DONNELL MCBRIDE WAS MADE AWARE. WENT TO THE PATIENT'S ROOM AND SPOKE W/ THE PATIENT. HE WAS INFORMED THAT HE WOULD ORDER PT, OT, SWALLOW EVAL AND TO DC THE BATES CATHETER. PATIENT AGREED BUT WAS TRYING TO VERBALIZE THAT HE WANTED TO DRINK COFFEE. RE-EDUCATED THE PATIENT THAT THE SPEECH THERAPIST NEEDS TO SEE HIM FIRST TO EVALUATE HIM PRIOR TO GIVING ANYTHING THRU HIS MOUTH. PATIENT WAS REDIRECTABLE, BUT KEPT ON ATTEMPTING TO GET OUT OF THE BED. ATIVAN PRN WAS ADMINISTERED.
--- NOTE | 2017-06-30 11:20 | NUR ---
REINSPECTOR NOTE: RT CAME AND WAS INFORMED ABOUT THE PATIENT'S RESTLESS BEHAVIOR AND TRYING TO REMOVE HIS VENTILATOR. RT INFORMED DR. KERN AND RECEIVED AN ORDER FOR A COOL AEROSOL 40% FIO2%. PATIENT WAS TOLERATING IT AND SATURATING 98-100%. DENIED SHORTNESS OF BREATH.
[2017-06-30] MEDS: NEPRO 1,000 ML BOTTLE GT PRN (11:27)
[2017-06-30 12:00] VITALS: BP 142/98
--- NOTE | 2017-06-30 12:00 | NUR ---
PEDIATRIC DENTAL HYGIENIST NOTE: PATIENT WAS ABLE TO VOID ON THE URINAL (50ML) TODAY. NO BLADDER DISTENTION WAS NOTED. NO BLEEDING ON THE URINE. PATIENT HAS NO DISCOMFORT AT THIS TIME.
[2017-06-30 13:23] LABS: ABG BASE EXCESS -2.7 mmol/L; ABG OXYGEN SATURATION 97.6 % (92.0-98.5); ABG PCO2 29.8 mmHg (35.0-45.0); ABG PH 7.455 (7.350-7.450); ABG PO2 130.4 mmHg (75.0-100.0); AaDO2 120.5 mmHg; COHb 0.2 % (0.5-1.5); MetHb 0.6 % (0.0-1.5); O2Hb 96.8 % (94.0-97.0); SITE, ABG Right Radial; VENT MODE, BG COOL AEROSOL 40%
[2017-06-30 16:00] VITALS: BP_SYST 145; BP_DIAS 90; BP_DIAS 95
--- NOTE | 2017-06-30 16:30 | NUR ---
COMMERCIAL ATTORNEY NOTE: PATIENT WAS SEEN BY THE SPEECH THERAPIST AND EVALUATED FOR SWALLOWING. ST MADE HER RECOMMENDATIONS AND DR. DONNLEL MCBRIDE WAS INFORMED AND HE GAVE AN ORDER FOR THE PATIENT'S DIET STARTING DINNER TIME. NOTED AND ACKNOWLEDGED.
--- NOTE | 2017-06-30 17:30 | NUR ---
HONING MACHINE OPERATOR NOTE: PATIENT WAS FED BY THE BRAZER FURNACE (SITTER) AND HE CONSUMED 50% OF HIS DINNER TRAY. HE MOSTLY DRINK THE LIQUID ON HIS TRAY AND NOT TOO MUCH ON THE SOLID FOOD IN THE TRAY.
--- NOTE | 2017-06-30 19:25 | NUR ---
SPINNING LATHE OPERATOR OPENING NOTES RECEIVED REPORT FROM ANIVAL LUA. PATIENT A/A/O X2-3 W/ SOME CONFUSION. NOW ABLE TO VERBALIZE NEEDS. BREATHING EVEN & UNLABORED W/ TRACH INTACT & ON COOL AEROSOL @ 40%. SATING WELL @ 100%. ON TELE W/ SINUS RHYTHM, HR 82. NO RESPIRATORY OR CARDIAC DISTRESS NOTED. DENIES SOB OR DIFFICULTY BREATHING. RIGHT UPPER ARM PICC LINE INTACT & PATENT W/ DRESSING CDI & IVF 1/2 NS @ 100 ML/HR. G-TUBE INTACT & CLAMPED @ THIS TIME. PATIENT ABLE TO USE URINAL. SAFETY MEASURES IN PLACE & HOB ELEVATED FOR ASPIRATION PRECAUTIONS. SITTER @ BEDSIDE. WILL CONTINUE TO MONITOR.
--- NOTE | 2017-06-30 19:45 | NUR ---
ACADEMIC ADVISER NOTE: PATIENT IN BED, ON STABLE CONDITION. ON LOCAL COMBINATION TRUCK DRIVER, SR HR= 88. REPORT GIVEN TO PM SHIFT NURSE FOR CONTINUITY OF CARE.
[2017-06-30 20:00] VITALS: BP 153/92
[2017-07-01] VITALS: BP 184/108
[2017-07-01] MEDS: LORAZEPAM INJ 2 MG/ML VIAL IV PRN ×5 (00:59→17:54)
[2017-07-01] MEDS: NYSTATIN TOP POWDER 15 GM BOTTLE TP SCH ×2 (01:27→14:54)
[2017-07-01] MEDS: hydrALAZINE HCL IV 20 MG VIAL IV PRN ×2 (01:32→06:35)
[2017-07-01] MEDS: IPRATROPIUM NEB FS 0.5 MG/2.5 ML AMPUL.NEB NEB SCH ×5 (03:22→19:57)
[2017-07-01] MEDS: ALBUTEROL FS 2.5 MG/0.5 ML VIAL.NEB NEB SCH ×5 (03:22→19:57)
[2017-07-01 04:00] VITALS: BP 184/109
[2017-07-01] MEDS: NEOMY SULF/BACITRAC ZN/POLY 15 GM TUBE TP SCH ×2 (05:27→16:11)
--- NOTE | 2017-07-01 07:27 | NUR ---
TRAINMAN OPENING NOTES RECEIVED PATIENT IN BED AWAKE, A/O X2-3 WITH SITTER AT BEDSIDE. ABLE TO VERBALIZE NEEDS WITH NO C/O PAIN OR DISCOMFORTS VOICED AT THIS TIME. PT WITH TRACH ON COOL AEROSOL @ 40%, BREATHING EVEN & UNLABORED WITH NO SOB NOTED. ON TELE-MONITORING W/ CURRENT READING OF SINUS TACH, HR 101, NO RESPIRATORY OR CARDIAC DISTRESS NOTED. LUIS PICC LINE INTACT & PATENT W/ DRESSING CDI WITH IVF 1/2 NS @ 100 ML/HR. G-TUBE INTACT & CLAMPED @ THIS TIME. HOB ELEVATED FOR ASPIRATION PRECAUTIONS. SAFETY MEASURES IN PLACE. BED IN LOW/LOCKED POSITION WITH SIDE-RAILS UP X2. CALL LIGHT WITHIN REACH. WILL CONTINUE TO MONITOR.
[2017-07-01 08:00] VITALS: BP 154/77
[2017-07-01] MEDS: OLANZAPINE 2.5 MG TABLET GT SCH ×2 (08:14→16:48)
[2017-07-01] MEDS: LACTOBACILLUS RHAMNOSUS GG 1 EACH CAP.SPRINK PO SCH ×2 (08:14→16:48)
[2017-07-01 08:19] LABS: CALCIUM, SERUM 10.3 mg/dL (8.5-10.1); CREATININE 0.8 mg/dL (0.6-1.3); POTASSIUM 3.3 mmol/L (3.5-5.1)
[2017-07-01] MEDS: HYDROGEL DRESSING 90 GM TUBE TP SCH (08:33)
[2017-07-01] MEDS ORDERED: POTASSIUM CHLORIDE 20 MEQ POWDER PACKET NG SCH (10:00)
[2017-07-01] MEDS: IV 1/2NS 1000 ML 1,000 ML IV PRN (10:39)
[2017-07-01 12:00] VITALS: BP 156/88
--- NOTE | 2017-07-01 13:48 | NUR ---
RN NOTES PATIENT NOTED WITH LOW K LEVEL 3.4, REPLACED WITH KLOR CON POWDER 20MEQ. WILL CONTINUE TO MONITOR.
--- NOTE | 2017-07-01 15:29 | NUR ---
RN NOTES PATIENT SEEN AND EVALUATED BY DR CMBRIDE. PT DRINKING WELL. ORDER TO DC IVF FLUIDS. WILL CONTINUE TO MONITOR,
[2017-07-01 16:00] VITALS: BP 157/107
[2017-07-01] MEDS: FENTANYL TD PATCH (75MCG/HR) 75 MCG/HR PATCH.TD72 TD SCH (17:29)
--- NOTE | 2017-07-01 17:31 | NUR ---
RN NOTES APPLIED DURAGESIC PATCH 75MCG, SIGNED AND DATED TO PT'S LEFT UPPER ARM, SAME SECURED WITH TAPE. PATCH TO BE CHANGED AFTER 72 HRS.
--- NOTE | 2017-07-01 18:45 | NUR ---
TURBO ELECTRIC OPERATOR CLOSING NOTES PATIENT AWAKE IN BED WITH SITTER AT BEDSIDE. A/O X2-3, SAME ABLE TO MAKE NEEDS KNOWN. PT RESTLESS/AGITATED ON AND OFF DURING THE, PRN ATIVAN IVP GIVEN ORDERED WITH GOOD RESULTS. PT TOLERATING TRACH ON COOL AEROSOL @ 40%, NO SOB NOTED. ON TELE-MONITORING W/ CURRENT READING OF SINUS TACH WITH HR 101, NO CARDIAC DISTRESS NOTED. LUIS PICC LINE INTACT & PATENT W/ DRESSING C/D/I WITH IVF 1/2 NS @ 100 ML/HR. G-TUBE INTACT & CLAMPED @ THIS TIME. HOB ELEVATED AT ALL TIMES TO PREVENT ASPIRATION. SAFETY MEASURES IN PLACE. BED IN LOW/LOCKED POSITION WITH SIDE-RAILS UP X2. CALL LIGHT WITHIN REACH. ALL NEEDS AND CARE PROVIDED WELL. WILL ENDORSE TO SWEATBAND PERFORATOR NURSE FOR NÉSTOR.
--- NOTE | 2017-07-01 19:30 | NUR ---
RN NOTES RECEIVED PT. AWAKE ON BED, A/OX2-3, SR ON TELE MONITOR HR-98, SITTER AT BEDSIDE, PT IS ON COOL AEROSOL , NOT IN DISTRESS, NO PAIN NOTED, CALL LIGHT WITHIN REACH, SIDERAILSUPX2, CONTINUE TO MONITOR
[2017-07-01 20:06] VITALS: BP 151/105
[2017-07-02] VITALS: BP 151/96
[2017-07-02] MEDS: IPRATROPIUM NEB FS 0.5 MG/2.5 ML AMPUL.NEB NEB SCH ×7 (00:09→23:30)
[2017-07-02] MEDS: ALBUTEROL FS 2.5 MG/0.5 ML VIAL.NEB NEB SCH ×7 (00:09→23:30)
[2017-07-02] MEDS: NYSTATIN TOP POWDER 15 GM BOTTLE TP SCH (01:31)
[2017-07-02] MEDS: LORAZEPAM INJ 2 MG/ML VIAL IV PRN ×3 (03:24→21:37)
--- NOTE | 2017-07-02 03:36 | NUR ---
RN NOTES PT WAS SO RESTLESS, ATIVAN 2MG IV GIVEN ORDERED, V/S STABLE
[2017-07-02 04:00] VITALS: BP 150/89
[2017-07-02] MEDS: NEOMY SULF/BACITRAC ZN/POLY 15 GM TUBE TP SCH ×2 (04:31→16:00)
--- NOTE | 2017-07-02 06:27 | NUR ---
RN NOTES AWAKE, PICC LINE IN PLACE, G-TUBE CLAMPED, NOT IN DISTRESS, MORNING CARE RENDERED, CALL LIGHT WITHIN REACH, SIDERAILS UPX2 PT. NEEDS ATTENDED
[2017-07-02 06:50] LABS: BASOPHILS % (AUTO) 0.3 % (0.0-2.0); HEMATOCRIT 29 % (39-51); HEMOGLOBIN 9.9 g/dL (13.5-17.5); LYMPHOCYTES # (AUTO) 1.7 /CMM (0.8-4.8); LYMPHOCYTES % (AUTO) 12.3 % (20.0-44.0); MEAN CORPUSCULAR HEMOGLOBIN 29 PG (26.0-33.0); MEAN CORPUSCULAR HGB CONC 34 g/dl (31.0-36.0); MEAN CORPUSCULAR VOLUME 85 fL (80-96); MONOCYTES # (AUTO) 1.1 /CMM (0.1-1.30); MONOCYTES % (AUTO) 7.6 % (2.0-12.0); NEUTROPHILS % (AUTO) 77.8 % (43.0-81.0); PLATELET COUNT (AUTO) 422 /CMM (150-450); RDW COEFFICIENT OF VARIATION 14.4 (11.5-15.0); RED BLOOD CELL COUNT(AUTO) 3.46 MIL/uL (4.5-6.0); WHITE BLOOD COUNT (AUTO) 14.1 K/uL (4.3-11.0)
[2017-07-02 07:11] LABS: CALCIUM, SERUM 10.7 mg/dL (8.5-10.1); CREATININE 0.8 mg/dL (0.6-1.3); MAGNESIUM 1.4 mg/dL (1.8-2.4); POTASSIUM 3.5 mmol/L (3.5-5.1)
--- NOTE | 2017-07-02 07:41 | NUR ---
RN NOTES RECEIVED PT A&0X2-3, TRACH ON COOL AEROSOL, ABLE TO MOUTH OUT WORDS, MAKE NEEDS KNOWN. SR ON THE TELE DELL HR 102. LUIS PICC INTACT NO IVF. GTUBE CLAMPED. SITTER AT BEDSIDE FOR SAFETY. BED LOCKED AND IN LOWEST POSITION, CALL LIGHT WITHIN REACH, SIDE RAILS UPX3, WILL CONT TO DELL.
[2017-07-02 08:00] VITALS: BP 147/99
[2017-07-02] MEDS: OLANZAPINE 2.5 MG TABLET GT SCH ×2 (08:23→16:51)
[2017-07-02] MEDS: HYDROGEL DRESSING 90 GM TUBE TP SCH (08:23)
[2017-07-02] MEDS: LACTOBACILLUS RHAMNOSUS GG 1 EACH CAP.SPRINK PO SCH ×2 (08:23→16:51)
[2017-07-02] MEDS: Magnesium 1GM/D5W 100ML PREMIX 100 ML IV SCH ×4 (09:57→13:54)
--- NOTE | 2017-07-02 12:22 | NUR ---
PT. REFUSED TO ATTACH RED CAPPED. PT SAID " I WANT THE DOCTOR IS THE ONE WHO IS GOING TO DO THAT." Addendum: 07/02/17 at 1225 by CHEYENNE LAYTON RT Amended: Links added.
--- NOTE | 2017-07-02 12:28 | NUR ---
RN NOTES DR KERN ORDERED CAP FOR PT TRACH, ATTEMPTED WITH RT BUT PT REFUSED. DR KERN NOTIFIED, WILL TRY AGAIN TOMORROW.
[2017-07-02 16:00] VITALS: BP 148/99
--- NOTE | 2017-07-02 18:35 | NUR ---
RN NOTES PT REMAINED IN STABLE CONDITION THROUGHOUT THE SHIFT, ALL NEEDS MET. WILL ENDORSE TO ONCOMING SHIFT.
[2017-07-02 20:00] VITALS: BP 142/90
--- NOTE | 2017-07-02 20:34 | NUR ---
RN INITIAL MS NOTES RECEIVED PT. AWAKE ON BED, A/OX2-3, SR, SITTER AT BEDSIDE, PT IS ON COOL AEROSOL , NOT IN DISTRESS, NO PAIN NOTED, CALL LIGHT WITHIN REACH, SIDERAILSUPX2, CONTINUE TO MONITOR
[2017-07-02] MEDS ORDERED: POTASSIUM CHLORIDE 20 MEQ TAB.PRT.SR PO ONE (23:00)
[2017-07-03] VITALS (7 sets, daily range): BP systolic 135–155; BP diastolic 90–100
[2017-07-03] MEDS: LORAZEPAM INJ 2 MG/ML VIAL IV PRN ×3 (02:06→21:15)
[2017-07-03] MEDS: IPRATROPIUM NEB FS 0.5 MG/2.5 ML AMPUL.NEB NEB SCH ×7 (03:30→23:25)
[2017-07-03] MEDS: ALBUTEROL FS 2.5 MG/0.5 ML VIAL.NEB NEB SCH ×7 (03:30→23:25)
[2017-07-03] MEDS: NEOMY SULF/BACITRAC ZN/POLY 15 GM TUBE TP SCH ×2 (05:04→16:00)
--- NOTE | 2017-07-03 05:57 | NUR ---
RN CLOSING MS NOTES ENDORSED PT. AWAKE ON BED, A/OX2-3, SR, SITTER AT BEDSIDE, PT IS ON COOL AEROSOL , FOR PENDING DECANNULATION, THEN DC, CM WORKING ON THE CASE. NOT IN DISTRESS, NO PAIN NOTED, CALL LIGHT WITHIN REACH, SIDERAILSUPX2, CONTINUE TO MONITOR
[2017-07-03 07:01] LABS: BASOPHILS % (AUTO) 0.3 % (0.0-2.0); EOSINOPHILS % (AUTO) 2.3 % (0.0-6.0); HEMATOCRIT 30 % (39-51); HEMOGLOBIN 10.4 g/dL (13.5-17.5); LYMPHOCYTES # (AUTO) 2.7 /CMM (0.8-4.8); MEAN CORPUSCULAR HEMOGLOBIN 29 PG (26.0-33.0); MEAN CORPUSCULAR HGB CONC 34 g/dl (31.0-36.0); MEAN CORPUSCULAR VOLUME 84 fL (80-96); MONOCYTES # (AUTO) 1.2 /CMM (0.1-1.30); MONOCYTES % (AUTO) 9.2 % (2.0-12.0); NEUTROPHILS # (AUTO) 9.2 /CMM (1.8-8.9); NEUTROPHILS % (AUTO) 68.2 % (43.0-81.0); PLATELET COUNT (AUTO) 452 /CMM (150-450); RDW COEFFICIENT OF VARIATION 14.8 (11.5-15.0); WHITE BLOOD COUNT (AUTO) 13.5 K/uL (4.3-11.0)
--- NOTE | 2017-07-03 07:15 | NUR ---
RN INITIAL NOTES PATIENT RESTING IN BED. NONLABORED BREATHING NOTED ON COOL AEROSOL WITH 40% FIO2. PICCLINE ON RIGHT UPPER ARM PATENT AND INTACT. DENYING PAIN AT THE MOMENT. SITTER AT BEDSIDE. BED IN LOWEST LOCKED POSITION. CALL LIGHT WITHIN REACH.
[2017-07-03 07:16] LABS: CALCIUM, SERUM 10.8 mg/dL (8.5-10.1); CREATININE 0.9 mg/dL (0.6-1.3); MAGNESIUM 1.5 mg/dL (1.8-2.4); PHOSPHORUS 4.7 mg/dL (2.5-4.9); POTASSIUM 4.1 mmol/L (3.5-5.1)
--- NOTE | 2017-07-03 08:32 | NUR ---
PATIENT STATES FEELING ANXIOUS. PATIENT ENCOURAGED TO EXPRESS EMOTIONS. ATIVAN ADMINISTERED PER ORDERS. PATIENT EDUCATED ON ZYPREXA AND LACTOBASCILLUS. PATIENT REFUSING. STATING "NO I TOLD YOU I WONT TAKE THEM."
[2017-07-03] MEDS: OLANZAPINE 2.5 MG TABLET GT SCH ×2 (10:00→17:00)
[2017-07-03] MEDS: LACTOBACILLUS RHAMNOSUS GG 1 EACH CAP.SPRINK PO SCH ×2 (10:00→17:00)
--- NOTE | 2017-07-03 11:34 | NUR ---
PATIENT REFUSING ZYPREXA AND LACTOBACILLUS AGAIN. BENEFITS AND RISKS EXPLAINED TO PATIENT AT LENGTH. PATIENT STILL REFUSING. DENYING HALLUCINATIONS, DENYING SI AND HI IDEATIONS. SAFETY PRECAUTIONS IMPLEMENTED. SITTER AT BEDSIDE.
--- NOTE | 2017-07-03 11:35 | NUR ---
RN NOTES PATIENT REFUSING WOUND CARE, EDUCATED ON BENEFITS AND RISKS. STILL REFUSING
--- NOTE | 2017-07-03 11:47 | NUR ---
PER DR KERN, CAP TRACH, APPLY NASAL CANNULA RT OUMAR INFORMED
[2017-07-03] MEDS: Magnesium 1GM/D5W 100ML PREMIX 100 ML IV SCH ×2 (11:53→13:26)
--- NOTE | 2017-07-03 12:06 | NUR ---
RT NOTE PLACED PT ON TCAP PER MD ORDER, PT MAUDE WELL, NO RESPIRATORY DISTRESS NOTED WILL MONITOR CLOSELY
[2017-07-03] MEDS: HYDROGEL DRESSING 90 GM TUBE TP SCH (13:00)
--- NOTE | 2017-07-03 13:04 | NUR ---
PATIENT ON 2L NASAL CANNULA, TRACH CAPPED. NONLABORED BREATHING NOTED. SPO2 AT 96%
--- NOTE | 2017-07-03 18:10 | NUR ---
PATIENT RESTING IN BED. NONLABORED BREATHING NOTED ON 2L NASAL CANNULA. TRACH IS CAPPED. NO SIGNS OF ANXIOUSNESS NOTED. PICCLINE ON RIGHT UPPER ARM PATENT AND INTACT. PATIENT DENYING PAIN AT THE MOMENT. DURING SHIFT, PATIENT REFUSED LACTOBASCILLUS WELL ZYPREXA. DR MCBRIDE NOTIFIED. SAFETY PRECAUTIONS IMPLEMENTED AND NO SHARP OBJECTS LEFT AT BEDSIDE. SITTER IN ROOM AT ALL TIME. DENYING HI AND SI AND DENYING HALLUCINATIONS. PATIENT REFUSED WOUND CARE WELL. BENEFITS AND RISKS EXPLAINED AT LENGTH. PATIENT STILL REFUSED. PATIENT AFEBRILE THROUGHOUT SHIFT. BED IN LOWEST LOCKED POSITION. CALL LIGHT WITHIN REACH. WILL ENDORSE TO NEXT NURSE
[2017-07-04] MEDS: ALBUTEROL FS 2.5 MG/0.5 ML VIAL.NEB NEB SCH ×6 (03:30→23:07)
[2017-07-04] MEDS: IPRATROPIUM NEB FS 0.5 MG/2.5 ML AMPUL.NEB NEB SCH ×6 (03:30→23:07)
[2017-07-04] MEDS: NEOMY SULF/BACITRAC ZN/POLY 15 GM TUBE TP SCH ×2 (03:33→15:19)
[2017-07-04 05:50] LABS: BASOPHILS # (AUTO) 0.1 /CMM (0.0-0.2); BASOPHILS % (AUTO) 0.5 % (0.0-2.0); EOSINOPHILS % (AUTO) 2.4 % (0.0-6.0); HEMATOCRIT 30 % (39-51); HEMOGLOBIN 9.9 g/dL (13.5-17.5); LYMPHOCYTES # (AUTO) 2.1 /CMM (0.8-4.8); LYMPHOCYTES % (AUTO) 17.9 % (20.0-44.0); MEAN CORPUSCULAR HEMOGLOBIN 29 PG (26.0-33.0); MEAN CORPUSCULAR HGB CONC 34 g/dl (31.0-36.0); MEAN CORPUSCULAR VOLUME 85 fL (80-96); MONOCYTES # (AUTO) 1.4 /CMM (0.1-1.30); MONOCYTES % (AUTO) 11.8 % (2.0-12.0); NEUTROPHILS # (AUTO) 7.9 /CMM (1.8-8.9); NEUTROPHILS % (AUTO) 67.4 % (43.0-81.0); PLATELET COUNT (AUTO) 456 /CMM (150-450); RDW COEFFICIENT OF VARIATION 14.2 (11.5-15.0); RED BLOOD CELL COUNT(AUTO) 3.48 MIL/uL (4.5-6.0); WHITE BLOOD COUNT (AUTO) 11.7 K/uL (4.3-11.0)
--- NOTE | 2017-07-04 05:53 | NUR ---
CLOSING NOTES: HIS MOTHER NOEMÍ CALLED HER NUMBER IS [phone] SPOKE TO HER AND THE DTR-IN-LAW MINIMAL INFO GIVEN WANTS THE SW AND THE MD TO CALL HER ON WEDNESDAY BECAUSE HER DTR-IN-LAW CAN EXPLAIN WHAT THE MD SAYS TO HER. MR. BERNSTEIN SLEPT MOST OF THE NIGHT GETTING UP OMCE WITH NURSE ASSIST TO GO TO THE BATHROOM. LEGS WEAK. HE DRINK AND SWALLOWS W/O A PROBLEM ASP PRECAUTIONS TOOK. ABLE TO VERBALIZES CLEARLY AND MAKE HIS NEEDS KNOWN
--- NOTE | 2017-07-04 06:18 | NUR ---
CLOSING NOTES: SLEPT THRU MOST OF THE NIGHT. nOTED DRINKING OVER 1000 ML WATER AND 500 ML OF JUICES AND CONTINOUS TO ASK FOR MORE. AMBULATED TO THE BATHROOM WITH THE ASSIST OF ONE NURSE. HIS MOTHER Eveyln WANTS TO BE CALLLED OB WEDNESDAY BY THE EW AND THE MD [phone]
[2017-07-04 06:19] LABS: CREATININE 0.8 mg/dL (0.6-1.3); MAGNESIUM 1.9 mg/dL (1.8-2.4); PHOSPHORUS 5.1 mg/dL (2.5-4.9)
--- NOTE | 2017-07-04 07:45 | NUR ---
MS RN NOTE: RECEIVED PATIENT IN BED, AWAKE, ALERT AND ABLE TO MAKE HIS NEEDS KNOWN. RESPIRATION IS EVEN AND UNLABORED. AFEBRILE. TRACH WAS CAPPED. GT CLAMPED. (R) UA PICC LINE NOTED PATENT AND INTACT. HOB ELEVATED. SATURATING 98% IN ROOM AIR. DENIED ANY PAIN. ON 1:1 SITTER FOR SAFETY. CALL LIGHT WITHIN REACH. NEEDS ANTICIPATED
[2017-07-04 08:00] VITALS: BP 128/101
[2017-07-04] MEDS: LACTOBACILLUS RHAMNOSUS GG 1 EACH CAP.SPRINK PO SCH ×3 (08:32→17:21)
[2017-07-04] MEDS: OLANZAPINE 2.5 MG TABLET GT SCH ×3 (08:32→17:00)
[2017-07-04] MEDS: HYDROGEL DRESSING 90 GM TUBE TP SCH (08:33)
[2017-07-04] MEDS: LORAZEPAM INJ 2 MG/ML VIAL IV PRN ×4 (08:46→23:19)
--- NOTE | 2017-07-04 08:58 | NUR ---
MS RN NOTE: PAGED AND INFORMED DR. DONNELL MCBRIDE RE: THE PATIENT'S BP @ 0800. BP= 128/101 HR= 97. PATIENT DENIED ANY PAIN AND REQUESTED IF THE MD CAN GIVE HIM ANY BLOOD PRESSURE MEDICATION. AWAITING FOR MD'S RESPONSE.
--- NOTE | 2017-07-04 09:26 | NUR ---
MS RN NOTE: RECEIVED A RESPONSE FROM DR. DONNELL MCBRIDE AND HE GAVE AN ORDER FOR BHAVNA, NOTED AND ACKNOWLEDGED. PATIENT WAS MADE AWARE.
[2017-07-04] MEDS: VALSARTAN 80 MG TABLET PO SCH (10:12)
[2017-07-04] MEDS: FENTANYL TD PATCH (75MCG/HR) 75 MCG/HR PATCH.TD72 TD SCH (18:00)
[2017-07-04 20:00] VITALS: BP 113/73
[2017-07-05 01:42] VITALS: BP 113/79
[2017-07-05] MEDS: IPRATROPIUM NEB FS 0.5 MG/2.5 ML AMPUL.NEB NEB SCH ×6 (02:48→23:49)
[2017-07-05] MEDS: ALBUTEROL FS 2.5 MG/0.5 ML VIAL.NEB NEB SCH ×6 (02:48→23:49)
[2017-07-05] MEDS: NEOMY SULF/BACITRAC ZN/POLY 15 GM TUBE TP SCH ×2 (04:00→17:05)
--- NOTE | 2017-07-05 04:00 | NUR ---
RN NOTE PATIENT IS ALERT/ORIENTED X 3, REFUSED 4AM VITAL SIGNS, EXPLAINED ALL RISKS AND BENEFITS, STILL REFUSED
[2017-07-05] MEDS: LORAZEPAM INJ 2 MG/ML VIAL IV PRN ×8 (05:04→23:45)
--- NOTE | 2017-07-05 07:00 | NUR ---
MSRN OPENING NOTES. PT A&0X3, REQUESTING MORE SLEEP. PT WITH O2 VIA NC AT 2LPM, AUSCULTATED WITH CRACKLES. PT DENIES PAIN. PT WITH R UA PICC LINE VISUALIZED BUT DECLINES LINE CARE, ENDORSED WITH PEG TUBE, PT DECLINES ASSESSMENT. WILL ATTEMPT AFTER BREAKFAST. PT BREIFED ON TODAY'S POC AND IS WITHOUT CONCERN OR COMPLAINT. BED IN LOWEST LOCKED WITH HANDRAILSX2 AND CALL PRINGLE WITHIN REACH. PT WITH 1:1 SITTER.
[2017-07-05 07:28] LABS: CALCIUM, SERUM 11.8 mg/dL (8.5-10.1); CREATININE 0.9 mg/dL (0.6-1.3); POTASSIUM 4.2 mmol/L (3.5-5.1)
[2017-07-05] MEDS: OLANZAPINE 2.5 MG TABLET GT SCH ×2 (09:00→17:00)
[2017-07-05] MEDS: VALSARTAN 80 MG TABLET PO SCH (10:06)
[2017-07-05] MEDS: HYDROGEL DRESSING 90 GM TUBE TP SCH (10:07)
[2017-07-05] MEDS: LACTOBACILLUS RHAMNOSUS GG 1 EACH CAP.SPRINK PO SCH ×2 (10:07→17:00)
--- NOTE | 2017-07-05 10:15 | NUR ---
pier worker was informed by DASHAWN Soon that pt's mother would like to speak to her. CAROLE contacted pt's mother Ingrid who informed SW to speak to pt's sister Latrice. CAROLE spoke to Latrice who informed SW that pt. has a long history of drug addiction and homelessness. Pt. use to reside with Latrice and his mother long time ago but was evicted from there due to pt's extensive drug use. Pt. has been before but Latrice was not sure if pt. has any children. Pt's legal name is Chiki Banda and not Chiki Levine. Pt. had given and [facility] staff an incorrect of 1970. Pt's correct is 1970. CAROLE informed family preservation caseworker Tez in accounting with the aforementioned information. Latrice was inquiring about pt's plan of care, however CAROLE informed her to speak with pt's nurse and doctor. CAROLE transferred the call to [facility] [phone] so that Latrice can speak to the RN regarding pt's plan of care. Latrice can be reached at .
[2017-07-05] MEDS ORDERED: IV NS 0.9% 1,000 ML IV PRN (11:30)
[2017-07-05 11:53] LABS: THYROID STIMULATING HORMONE 2.379 uIU/mL (0.358-3.74)
--- NOTE | 2017-07-05 12:00 | NUR ---
NOTES. PT AGITATED, HOSTILE TO CIRCULAR RIPSAW OPERATOR AND DEMANDING TO GO SHOP FOR CIGARETTES. PT WALKING IN CHOWDARY WITH WALKER, UNSTABLE, PT AGAIN REQUESTED TO RETURN TO BED R/T TO FALL RSISK. SENIOR NET DEVELOPER ARCHITECT RAE AWARE, SENIOR NET DEVELOPER ARCHITECT REQUESTING 21MG NICOTINE PATCH, ORDER PLACED. PT CALMED, ATIVAN PRN PROVIDED. PT RESTING
[2017-07-05] MEDS: NICOTINE PATCH (21MG) 21 MG PATCH.TD24 TD SCH (12:22)
[2017-07-05 13:00] VITALS: BP 113/69
--- NOTE | 2017-07-05 18:08 | NUR ---
RN CLOSING. NOTES. PT A&0X3, AND FORGETFUL WITH INTERMITTENT PERIODS OF COMBATIVE OR HOSTILE BEHAVIOR, ESPECIALLY REGARDING CIGARETTES AND FAMILY DYNAMIC. PT WITH 1:1 SITTER. PT WITH O2 VIA NC AT 2LPM AND IS WITHOUT RESP DISTRESS AND DENIES PAIN. PT WITH R UA PICC LINE INTACT AND OPERATIONAL. PT REFUSED PEG TUBE CARE. PT BED IN LOWEST LOCKED POSITION WITH HNADRAILSX2 AND CALL PRINGLE WITHIN REACH. WOUND CARE COMPLETED ORDERED. PT IS WITHOUT CONCERN OR COMPLAINT AT THIS TIME. WILL ENDORSE TO NIGHT NURSE AT BEDSIDE FOR NÉSTOR.
[2017-07-05 20:00] VITALS: BP 127/68
[2017-07-06] MEDS: IPRATROPIUM NEB FS 0.5 MG/2.5 ML AMPUL.NEB NEB SCH ×7 (03:14→22:50)
[2017-07-06] MEDS: ALBUTEROL FS 2.5 MG/0.5 ML VIAL.NEB NEB SCH ×7 (03:14→22:50)
[2017-07-06 04:00] VITALS: BP 129/80
[2017-07-06] MEDS: LORAZEPAM INJ 2 MG/ML VIAL IV PRN ×6 (04:53→23:41)
[2017-07-06] MEDS: NEOMY SULF/BACITRAC ZN/POLY 15 GM TUBE TP SCH ×2 (04:57→16:00)
--- NOTE | 2017-07-06 08:00 | NUR ---
MS RN NOTES PATIENT IN BED RESTING NO SOB OR ACUTE DISTRESS NOTED. PATIENT ALERT, ORIENTED X3. PERIPHERAL IV INTACT PATENT. BED IN LOW LOCKED POSITION. CALL LIGHT WITHIN REACH. WILL CONTINUE TO MONITOR.
--- NOTE | 2017-07-06 08:24 | NUR ---
CAROLE received a call from pt's sister Latrice requesting to not be contacted anymore regarding Chiki. Latrice stated, she spoke to Chiki for the first time yesterday and all he asked for was get him some cigarettes. This was the first time she has spoken to him in 20 years. Pt's mother who resides with Latrice is sick and is getting stressed due to the calls from the hospital regarding Chiki. CAROLE informed DASHAWN Pennington that family does not want to be contacted anymore.
[2017-07-06] MEDS: OLANZAPINE 2.5 MG TABLET GT SCH ×2 (08:26→17:00)
[2017-07-06] MEDS: VALSARTAN 80 MG TABLET PO SCH (08:26)
[2017-07-06] MEDS: LACTOBACILLUS RHAMNOSUS GG 1 EACH CAP.SPRINK PO SCH ×2 (08:26→18:00)
[2017-07-06] MEDS: NICOTINE PATCH (21MG) 21 MG PATCH.TD24 TD SCH (08:26)
[2017-07-06] MEDS: HYDROGEL DRESSING 90 GM TUBE TP SCH (08:36)
--- NOTE | 2017-07-06 09:00 | NUR ---
MS RN NOTES PATIENT SEEN AND EVALUATED BY DR. KERN ORDERS FOR RT TO DECANNULATE PATIENT NOTED AND CARRIED OUT.
[2017-07-06 09:40] LABS: CALCIUM, SERUM 11.7 mg/dL (8.5-10.1); MAGNESIUM 1.6 mg/dL (1.8-2.4); PHOSPHORUS 4.1 mg/dL (2.5-4.9); POTASSIUM 4.1 mmol/L (3.5-5.1)
[2017-07-06 09:42] LABS: HEMATOCRIT 31 % (39-51); HEMOGLOBIN 10.4 g/dL (13.5-17.5); MEAN CORPUSCULAR HEMOGLOBIN 28 PG (26.0-33.0); MEAN CORPUSCULAR HGB CONC 33 g/dl (31.0-36.0); MEAN CORPUSCULAR VOLUME 84 fL (80-96); PLATELET COUNT (AUTO) 431 /CMM (150-450); RDW COEFFICIENT OF VARIATION 14.4 (11.5-15.0); RED BLOOD CELL COUNT(AUTO) 3.67 MIL/uL (4.5-6.0); WHITE BLOOD COUNT (AUTO) 10.2 K/uL (4.3-11.0)
[2017-07-06 09:43] LABS: BASOPHILS # (AUTO) 0.1 /CMM (0.0-0.2); BASOPHILS % (AUTO) 0.8 % (0.0-2.0); EOSINOPHILS % (AUTO) 2.1 % (0.0-6.0); MONOCYTES # (AUTO) 1.5 /CMM (0.1-1.30); MONOCYTES % (AUTO) 14.7 % (2.0-12.0); NEUTROPHILS # (AUTO) 6.4 /CMM (1.8-8.9); NEUTROPHILS % (AUTO) 62.4 % (43.0-81.0)
[2017-07-06 10:22] LABS: CALCIUM, IONIZED 6.8 mg/dL (4.5-5.6)
--- NOTE | 2017-07-06 10:42 | NUR ---
RT NOTE: AT THIS TIME PATIENT IS REFUSING DECANNULATION AND STATES THAT HE WILL ONLY DO IT AFTER LUNCH. WILL FOLLOW UP WITH PATIENT AFTER LUNCH. NURSE AWARE.
--- NOTE | 2017-07-06 14:35 | NUR ---
RT NOTE: PATIENT REFUSED DECANNULATION AT THIS TIME BUT STATES TO COME BACK LATER. I WILL FOLLOW UP WITH PATIENT LATER TODAY.
[2017-07-06 16:00] VITALS: BP_SYST 105; BP_SYST 126; BP_DIAS 35; BP_DIAS 81
--- NOTE | 2017-07-06 16:44 | NUR ---
RT NOTE: PATIENT DECANNULATED AT THIS TIME. TOLERATING WELL. NO BLEEDING OR REDNESS NOTED. NURSE(TYE) AWARE. REFUSING HHN TREATMENT. WILL CONTINUE TO MONITOR.
--- NOTE | 2017-07-06 18:55 | NUR ---
MS RN NOTES PATIENT DEMENDS TO LEAVE AMA OR GO SMOKING OUTSIDE. PER DR. KERN IN NO CIRCUMSTANCE PATIENT IS ALLOWED TO SMOKE. EXPLAINED TO PATIENT RISKS AND BENEFITS. STATES HE WILL THINK ABOUT IT HE STATES HE FEELS ANXIOUS IF HE CAN HAVE PRN DOSE OF ATIVAN. ATIVAN ADMINISTERED. WILL CONTINUE TO MONITOR.
[2017-07-06] MEDS ORDERED: HYDROCODONE/APAP 5/325MG 1 EACH TABLET PO PRN (21:00)
[2017-07-07] MEDS: ALBUTEROL FS 2.5 MG/0.5 ML VIAL.NEB NEB SCH ×5 (02:43→15:30)
[2017-07-07] MEDS: IPRATROPIUM NEB FS 0.5 MG/2.5 ML AMPUL.NEB NEB SCH ×5 (02:43→15:30)
[2017-07-07] MEDS: NEOMY SULF/BACITRAC ZN/POLY 15 GM TUBE TP SCH ×2 (04:50→15:48)
[2017-07-07] MEDS: ACETAMINOPHEN 650 MG/20.3 ML UDC NG PRN (05:25)
[2017-07-07] MEDS: LORAZEPAM INJ 2 MG/ML VIAL IV PRN ×3 (05:25→17:28)
--- NOTE | 2017-07-07 07:10 | NUR ---
RN NOTES PATIENT IN BED ALERT ORIENTED X 3. NO ACUTE DISTRESS NOTED. NO SOB NOTED. BREATHING UNLABORED. IV ACCESS PATENT AND INTACT. SAFETY MEASURES IN PLACE.CALL LIGHT WITHIN REACH.WILL CONTINUE TO MONITOR ACCORDINGLY
[2017-07-07 08:00] VITALS: BP 118/82
[2017-07-07] MEDS: LACTOBACILLUS RHAMNOSUS GG 1 EACH CAP.SPRINK PO SCH ×2 (08:50→17:00)
[2017-07-07] MEDS: OLANZAPINE 2.5 MG TABLET GT SCH ×3 (08:50→17:00)
[2017-07-07] MEDS: NICOTINE PATCH (21MG) 21 MG PATCH.TD24 TD SCH ×2 (08:50→08:59)
[2017-07-07] MEDS: VALSARTAN 80 MG TABLET PO SCH (08:51)
[2017-07-07] MEDS: HYDROGEL DRESSING 90 GM TUBE TP SCH (08:52)
--- NOTE | 2017-07-07 09:00 | NUR ---
RN NOTES PATIENT REFUSED ZYPREXA AND NICOTINE PATCH. EXPLAINED RISK AND BENEFITS, PATIENT STRONGLY REFUSED. MEDICATION WASTED PROPERLY WITNESSED BY FELLOW RN.
--- NOTE | 2017-07-07 11:15 | NUR ---
RN NOTES GTUBE REMOVED BY ASSISTANT GM OF CONTENT & DELIVERY TONY GRIFFITHS, NO S/SX OF BLEEDING, NO INFECTION NOTED. SECURED WITH DRESSING . PATIENT TOLERATED WELL.
--- NOTE | 2017-07-07 14:24 | NUR ---
MS RN NOTES SEEN AND EVALUATED BY SHAQ ROLON WITH NEW ORDERS MADE, NOTED AND CARRIED OUT.
[2017-07-07 16:00] VITALS: BP 118/82
--- NOTE | 2017-07-07 18:00 | NUR ---
CIRCULATION DIRECTOR NOTES PATIENT DISCHARGED IN STABLE CONDITION. NO ACUTE DISTRESS NOTED. DISCHARGE INSTRUCTIONS GIVEN TO THE PATIENT, VERBALIZED UNDERSTANDING. PATIENT REFUSED PICTURE TAKEN OF PREVIOUS TRACH AND GTUBE SITE. PICC LINE REMOVED, PATIENT TOLERATED WELL, NO BLEEDING OR SWELLING NOTED, TIP IS INTACT. ALL BELONGINGS ACCOUNTED FOR. PICKED UP BY 2 EMT PERSONNEL VIA AMBULANCE IN A RNEY.
== END 2017-07-07 17:57 | disposition home or self-care (01) | DRG 4 ==
LOC: ER 08:05 → ICU 09:15 → EDBD 09:15 → TELE-TD 06-27 09:27 → TELE1 06-28 12:40 → MEDSG1 07-02 09:57
PROVIDERS: ADMIT Nurse Practitioner Acute Care; ATTEND Nurse Practitioner Acute Care
PROC: 0BH17EZ Insertion of Endotracheal Airway into Trachea, Via Natural or Artificial Opening (ICD-10-PCS; principal; 2017-06-03)
PROC: 009U3ZX Drainage of Spinal Canal, Percutaneous Approach, Diagnostic (ICD-10-PCS; principal; 2017-06-03)
PROC: 5A1955Z Respiratory Ventilation, Greater than 96 Consecutive Hours (ICD-10-PCS; principal; 2017-06-03)
PROC: 05HY33Z Insertion of Infusion Device into Upper Vein, Percutaneous Approach (ICD-10-PCS; principal; 2017-06-03)
PROC: 0H9HXZZ Drainage of Right Upper Leg Skin, External Approach (ICD-10-PCS; principal; 2017-06-03)
PROC: 5A1D70Z Performance of Urinary Filtration, Intermittent, Less than 6 Hours Per Day (ICD-10-PCS; 2017-06-05)
PROC: B54BZZA Ultrasonography of Right Lower Extremity Veins, Guidance (ICD-10-PCS; 2017-06-05)
PROC: 06HM33Z Insertion of Infusion Device into Right Femoral Vein, Percutaneous Approach (ICD-10-PCS; 2017-06-05)
PROC: 5A1D70Z Performance of Urinary Filtration, Intermittent, Less than 6 Hours Per Day (ICD-10-PCS; 2017-06-06)
PROC: 5A1D70Z Performance of Urinary Filtration, Intermittent, Less than 6 Hours Per Day (ICD-10-PCS; 2017-06-08)
PROC: 5A1D70Z Performance of Urinary Filtration, Intermittent, Less than 6 Hours Per Day (ICD-10-PCS; 2017-06-10)
PROC: 5A1D70Z Performance of Urinary Filtration, Intermittent, Less than 6 Hours Per Day (ICD-10-PCS; 2017-06-11)
PROC: 5A1D70Z Performance of Urinary Filtration, Intermittent, Less than 6 Hours Per Day (ICD-10-PCS; 2017-06-12)
PROC: 5A1D70Z Performance of Urinary Filtration, Intermittent, Less than 6 Hours Per Day (ICD-10-PCS; 2017-06-14)
PROC: 5A1D70Z Performance of Urinary Filtration, Intermittent, Less than 6 Hours Per Day (ICD-10-PCS; 2017-06-16)
PROC: 5A1D70Z Performance of Urinary Filtration, Intermittent, Less than 6 Hours Per Day (ICD-10-PCS; 2017-06-17)
PROC: B54CZZA Ultrasonography of Left Lower Extremity Veins, Guidance (ICD-10-PCS; 2017-06-18)
PROC: 02HV33Z Insertion of Infusion Device into Superior Vena Cava, Percutaneous Approach (ICD-10-PCS; 2017-06-18)
PROC: 06HN33Z Insertion of Infusion Device into Left Femoral Vein, Percutaneous Approach (ICD-10-PCS; 2017-06-18)
PROC: B548ZZA Ultrasonography of Superior Vena Cava, Guidance (ICD-10-PCS; 2017-06-18)
PROC: 5A1D70Z Performance of Urinary Filtration, Intermittent, Less than 6 Hours Per Day (ICD-10-PCS; 2017-06-19)
PROC: 30233N1 Transfusion of Nonautologous Red Blood Cells into Peripheral Vein, Percutaneous Approach (ICD-10-PCS; 2017-06-20)
PROC: 5A1D70Z Performance of Urinary Filtration, Intermittent, Less than 6 Hours Per Day (ICD-10-PCS; 2017-06-21)
PROC: 05HM33Z Insertion of Infusion Device into Right Internal Jugular Vein, Percutaneous Approach (ICD-10-PCS; 2017-06-21)
PROC: B543ZZA Ultrasonography of Right Jugular Veins, Guidance (ICD-10-PCS; 2017-06-21)
PROC: 5A1D70Z Performance of Urinary Filtration, Intermittent, Less than 6 Hours Per Day (ICD-10-PCS; 2017-06-22)
PROC: 0B110F4 Bypass Trachea to Cutaneous with Tracheostomy Device, Open Approach (ICD-10-PCS; 2017-06-23)
PROC: 5A1D70Z Performance of Urinary Filtration, Intermittent, Less than 6 Hours Per Day (ICD-10-PCS; 2017-06-25)
PROC: 0DH63UZ Insertion of Feeding Device into Stomach, Percutaneous Approach (ICD-10-PCS; 2017-06-25)
PROC: 0DJ08ZZ Inspection of Upper Intestinal Tract, Via Natural or Artificial Opening Endoscopic (ICD-10-PCS; 2017-06-25)
DX: A40.9 Streptococcal sepsis, unspecified (principal); L89.323 Pressure ulcer of left buttock, stage 3; I21.A1 Myocardial infarction type 2; K72.00 Acute and subacute hepatic failure without coma; N17.0 Acute kidney failure with tubular necrosis; J69.0 Pneumonitis due to inhalation of food and vomit; G04.90 Encephalitis and encephalomyelitis, unspecified; R65.21 Severe sepsis with septic shock; G93.41 Metabolic encephalopathy; J96.01 Acute respiratory failure with hypoxia; B49 Unspecified mycosis; K57.32 Diverticulitis of large intestine without perforation or abscess without bleeding; E87.0 Hyperosmolality and hypernatremia; N39.0 Urinary tract infection, site not specified; M62.82 Rhabdomyolysis; E87.2 Acidosis; L02.415 Cutaneous abscess of right lower limb; I38 Endocarditis, valve unspecified; J98.11 Atelectasis; B37.49 Other urogenital candidiasis; T82.7XXA Infection and inflammatory reaction due to other cardiac and vascular devices, implants and grafts, initial encounter; L89.320 Pressure ulcer of left buttock, unstageable; D69.6 Thrombocytopenia, unspecified; E83.39 Other disorders of phosphorus metabolism; E83.52 Hypercalcemia; R65.20 Severe sepsis without septic shock; B00.9 Herpesviral infection, unspecified; D63.8 Anemia in other chronic diseases classified elsewhere; F17.200 Nicotine dependence, unspecified, uncomplicated; L30.4 Erythema intertrigo; Z88.0 Allergy status to penicillin; S80.211A Abrasion, right knee, initial encounter; S80.212A Abrasion, left knee, initial encounter; J32.9 Chronic sinusitis, unspecified; E78.1 Pure hyperglyceridemia; F19.10 Other psychoactive substance abuse, uncomplicated; S60.512A Abrasion of left hand, initial encounter; S60.511A Abrasion of right hand, initial encounter; X58.XXXA Exposure to other specified factors, initial encounter; Y93.9 Activity, unspecified; Y92.9 Unspecified place or not applicable; B19.20 Unspecified viral hepatitis C without hepatic coma; L51.9 Erythema multiforme, unspecified; L27.0 Generalized skin eruption due to drugs and medicaments taken internally; T36.0X5A Adverse effect of penicillins, initial encounter; R13.10 Dysphagia, unspecified; R62.7 Adult failure to thrive; E83.9 Disorder of mineral metabolism, unspecified; B37.7 Candidal sepsis; L89.892 Pressure ulcer of other site, stage 2; F15.11 Other stimulant abuse, in remission; Z71.6 Tobacco abuse counseling; E87.6 Hypokalemia; I10 Essential (primary) hypertension; K29.70 Gastritis, unspecified, without bleeding; E86.1 Hypovolemia; Y84.9 Medical procedure, unspecified as the cause of abnormal reaction of the patient, or of later complication, without mention of misadventure at the time of the procedure; Y92.230 Patient room in hospital as the place of occurrence of the external cause
CPT/HCPCS: 31720; 36415; 36569; 36600; 43246; 70450-TC; 71045-TC; 72125-TC; 72131-TC; 74018; 80048-TC; 80053-TC; 80061-TC; 80076-TC; 80202-TC; 80305; 81000-TC; 82040-TC; 82140-TC; 82248-TC; 82306; 82330; 82550-TC; 82553-TC; 82803-TC; 82962-TC; 83605-TC; 83690-TC; 83735-TC; 83970; 84100-TC; 84439-TC; 84443-TC; 84478-TC; 84481; 84484-TC; 85025-TC; 85027-TC; 85730-TC; 86592; 86694; 86788; 86789; 86803; 86850-TC; 86921-TC; 87040-TC; 87070-TC; 87081-TC; 87086-TC; 87186-TC; 87802; 87899; 89051-TC; 90935-TC; 92526; 92611-TC; 93307-TC; 94002-TC; 94003-TC; 94640-TC; 94760-TC; 94762-TC; 94799-TC; 97110-TC; 97116-TC; 97530-TC; 97535-TC; 99082-TC; A4216; A4606; A6248; A6402; A6403; A7526; C1750; C1751; C9113; G0480; J0133; J0330; J0360; J0696; J0885; J1630; J1644; J1650; J1956; J2060; J2185; J2248; J2250; J2270; J2310; J2540; J2543; J2704; J3010; J3370; J3475; J3480; J3490; J7030; J7040; J7050; J7060; L0172; P9016-BL; Z7610

== ENCOUNTER 2018-08-23 18:02 | Emergency (ER) | payer MEDICAID ==
[~2018-08-23] VITALS: Ht 172.7 cm; Wt 77.1 kg
[2018-08-23 18:07] VITALS: BP 154/69
--- NOTE | 2018-08-23 18:14 | NUR ---
AMY RA 860 "Homeless/IV drug abuser- used dirty needle today started feeling chills/cold/back pain". PT VERY ANXIOUS, CONSTANTLY INTERRUPTS DURING ASSESSMENT, ATTEMPTS TO BARGAIN TREATMENT FOR "3 APPLE JUICES". PT UNCOOPERATIVE AND AGITATED. UNABLE TO PROPERLY ASSESS. AWAITING PA EVAL.
[2018-08-23] MEDS ORDERED: ONDANSETRON HCL/PF 4 MG/2 ML VIAL ONE (18:24)
[2018-08-23] MEDS ORDERED: KETOROLAC TROMETHAMINE INJ 30 MG/ML VIAL ONE (18:24)
[2018-08-23] MEDS ORDERED: KETOROLAC TROMETHAMINE INJ 30 MG/ML VIAL IV ONE (18:30)
[2018-08-23] MEDS ORDERED: ONDANSETRON HCL/PF 4 MG/2 ML VIAL IVP ONE (18:30)
[2018-08-23] MEDS ORDERED: IV NS 0.9% 1,000 ML BAG IV ONE ×2 (18:30→19:30)
--- NOTE | 2018-08-23 18:47 | NUR ---
PT BEING VERY UNCOOPERATIVE, NOT ALLOWING TREATMENT, MAKING DEMANDS FOR SOMETHING TO DRINK. CONTINUOUSLY CHANGES MIND ABOUT SIGNING OUT AMA. SPOKE WITH HOMERO AUSTIN, AGREED TO TREATMENT AT THIS TIME.
[2018-08-23] MEDS ORDERED: LORAZEPAM INJ 2 MG/ML VIAL ONE (18:57)
[2018-08-23 19:00] LABS: BASOPHILS % (AUTO) 0.5 % (0.0-2.0); EOSINOPHILS % (AUTO) 0.5 % (0.0-6.0); HEMATOCRIT 42 % (39-51); HEMOGLOBIN 14.1 g/dL (13.5-17.5); LYMPHOCYTES # (AUTO) 0.2 /CMM (0.8-4.8); LYMPHOCYTES % (AUTO) 5.7 % (20.0-44.0); MEAN CORPUSCULAR HGB CONC 34 g/dl (31.0-36.0); MEAN CORPUSCULAR VOLUME 84 fL (80-96); MONOCYTES % (AUTO) 0.5 % (2.0-12.0); NEUTROPHILS # (AUTO) 3.1 /CMM (1.8-8.9); NEUTROPHILS % (AUTO) 92.8 % (43.0-81.0); PLATELET COUNT (AUTO) 195 /CMM (150-450); RED BLOOD CELL COUNT(AUTO) 4.99 MIL/uL (4.5-6.0); WHITE BLOOD COUNT (AUTO) 3.3 K/uL (4.3-11.0)
[2018-08-23] MEDS ORDERED: LORAZEPAM INJ 2 MG/ML VIAL IV ONE (19:00)
[2018-08-23] MEDS ORDERED: ACETAMINOPHEN 325 MG TABLET PO ONE (19:00)
[2018-08-23] MEDS ORDERED: ACETAMINOPHEN ES 500 MG TABLET ONE (19:06)
[2018-08-23 19:10] LABS: CALCIUM, SERUM 8.9 mg/dL (8.5-10.1); CREATININE 1.1 mg/dL (0.6-1.3); POTASSIUM 3.6 mmol/L (3.5-5.1)
[2018-08-23 19:16] LABS: BILIRUBIN,DIRECT 0.1 mg/dL (0.0-0.2); BILIRUBIN,TOTAL 0.6 mg/dL (0.2-1.0); TOTAL PROTEIN, SERUM 6.6 g/dL (6.4-8.2)
[2018-08-23] MEDS ORDERED: VANCOMYCIN 1 GM in IV D5W 250 ML IV ONE (19:30)
[2018-08-23] MEDS ORDERED: PIPERACILLIN /TAZOBACTAM 3.375 G in IV D5W 50 ML IV ONE (19:30)
[2018-08-23] MEDS ORDERED: VANCOMYCIN 1 GM VIAL ONE (19:32)
[2018-08-23] MEDS ORDERED: PIPERACILLIN /TAZOBACTAM 3.375 G VIAL IV ONE (19:32)
--- NOTE | 2018-08-23 19:35 | NUR ---
PT REFUSED EKG, PA AWARE
--- NOTE | 2018-08-23 19:49 | NUR ---
Patient does not wish to proceed with medical care recommended by HOMERO RODRIGUEZ. Patient given information related to possible complications, up to and including , which could occur as a result of leaving the hospital at this time. Patient verbalizes understanding of risks involved due to leaving against medical advice. Patient has signed AMA form. IV removed. Catheter intact and site benign. Pressure and 4x4 applied to site. No bleeding noted.
== END 2018-08-23 19:49 | disposition left against medical advice (07) ==
LOC: ER 18:02
DX: A41.9 Sepsis, unspecified organism (principal); F15.10 Other stimulant abuse, uncomplicated; Z88.0 Allergy status to penicillin
CPT/HCPCS: 36415; 71045; 80048; 80076; 83605; 83690; 84484; 85025; 87040 ×2; 93005; 99284; J7030; J7060; J1885; J2060; J2405; J2543; J3370; J7040